=== PATIENT | male | born 1950 | race African-American/Black ===

== ENCOUNTER 2018-01-08 00:52 | Inpatient (IN) | payer OTHER, MEDICARE ==
[~2018-01-08] VITALS: Ht 193 cm; Wt 83.0 kg
[~2018-01-08 00:52] MED LIST: ASPI81CT95 PO; ATOR20TA40 PO; CARV3.122 PO; FURO40TA9 PO; LISI-424 PO; PRED20TA5 PO; QUET25TA46 PO; RANI150T15 PO; SPIR50TA PO
[2018-01-08 00:56] VITALS: BP 121/86
--- NOTE | 2018-01-08 01:03 | NUR ---
Dung lambert in [facility] - 01/08/18 at 0106 by JAYNA PT TAKEN TO BED 8
--- NOTE | 2018-01-08 01:05 | NUR ---
PT AMBULATED TO BED 8
--- NOTE | 2018-01-08 01:06 | NUR ---
Dr. Patel evaluating patient at bedside.
--- NOTE | 2018-01-08 01:09 | NUR ---
67 Y/O M W/C/O SOB/COUGH X 2 WKS ON AND OFF. MED HX COPD, AND HTN. PT ON MONITOR, ER MADE AWARE.
[2018-01-08] MEDS ORDERED: ASPIRIN 81 MG TAB.CHEW PO ONE (01:10)
[2018-01-08] MEDS ORDERED: FUROSEMIDE 40 MG/4 ML VIAL IVP ONE (01:10)
[2018-01-08 01:32] LABS: BASOPHILS % (AUTO) 0.5 % (0.0-2.0); EOSINOPHILS # (AUTO) 0.1 K/uL (0-0.4); EOSINOPHILS % (AUTO) 1.1 % (0.0-4.0); HEMATOCRIT 41.9 % (36-52); HEMOGLOBIN 13.6 g/dL (12.0-18.0); LYMPHOCYTES # (AUTO) 2.8 K/uL (2.0-11.5); LYMPHOCYTES % (AUTO) 31.6 % (20.5-51.1); MEAN CORPUSCULAR HEMOGLOBIN 31 pg (27-31); MEAN CORPUSCULAR HGB CONC 33 g/dL (33-37); MEAN CORPUSCULAR VOLUME 95.4 fL (80-94); MONOCYTES # (AUTO) 0.7 K/uL (0.8-1.0); MONOCYTES % (AUTO) 7.7 % (1.7-9.3); NEUTROPHILS # (AUTO) 5.3 K/uL (1.8-7.7); NEUTROPHILS % (AUTO) 59.1 % (42.2-75.2); PLATELET COUNT (AUTO) 234 K/uL (140-450); RED BLOOD CELL COUNT(AUTO) 4.39 MIL/uL (4.20-6.10); RED CELL DISTRIBUTION WIDTH 14.8 % (11.6-13.7)
[2018-01-08 01:43] LABS: ANION GAP 14.2 (8-16); CARBON DIOXIDE 23.6 mmol/L (21-32); CREATININE 1.2 mg/dL (0.7-1.3); POTASSIUM 3.8 mmol/L (3.5-5.1)
[2018-01-08 01:49] LABS: ALBUMIN 3.2 g/dL (3.4-5.0); TOTAL BILIRUBIN 0.6 mg/dL (0.0-1.0)
--- NOTE | 2018-01-08 02:03 | NUR ---
X-Ray at bedside.
[2018-01-08 02:23] LABS: PROTHROMBIN TIME 11.5 secs (10.8-13.4)
--- NOTE | 2018-01-08 02:30 | NUR ---
RESULTS FROM LAB DRAW AT 2221 WAS 51 PER PROTOCOL NO CHANGE IN GTT RATE. PT IN LOW BED SLEEPING NO C/O VOICED CALL MUSA IN REACH AND SIDE RAILS UP X2.
--- NOTE | 2018-01-08 02:46 | NUR ---
PT RESTING IN BED AWATING FOR ADMITING ORDERS, NO S/S OF DSITRESS NOTED AT THE MOMENT.
[2018-01-08] MEDS ORDERED: HEPARIN PER PHARMACY MC PRN (02:50)
[2018-01-08] MEDS ORDERED: HYDROcodone/APAP 7.5/325 MG 1 TAB PO PRN (02:50)
[2018-01-08] MEDS ORDERED: MORPHINE SULFATE 2 MG/ML SYR IVP PRN (02:50)
[2018-01-08] MEDS ORDERED: ACETAMINOPHEN 325 MG TAB PO PRN (02:50)
[2018-01-08] MEDS ORDERED: hePARIN / DEXT 5% PREMIX 250 ML IV SCH (02:50)
[2018-01-08] MEDS ORDERED: DOCUSATE SODIUM 100 MG GELCAP PO PRN (02:50)
[2018-01-08] MEDS ORDERED: ONDANSETRON 4 MG/2 ML VIAL IM/IVP PRN (02:50)
[2018-01-08 03:03] LABS: APPEARANCE,URINE CLEAR (CLEAR); BILIRUBIN,URINE NEGATIVE (NEGATIVE); BLOOD, URINE NEGATIVE (NEGATIVE); COLOR,URINE YELLOW (YELLOW); LEUKOCYTE ESTERASE ,URINE NEGATIVE (NEGATIVE); NITRITE, URINE NEGATIVE (NEGATIVE); UGLUCOSE NEGATIVE (NEGATIVE)
[2018-01-08 03:10] LABS: BARBITURATE, URINE NEG. ng/ml (NEG <=200); BENZODIAZEPINE, URINE NEG. ng/mL (NEG <=200); CANNABINOID, URINE NEG. ng/mL (NEG <=50); COCAINE, URINE NEG. ng/mL (NEG <=300); OPIATE, URINE NEG. ng/mL (NEG <=2000); PHENCYCLIDINE SCREEN,URINE NEG. ng/mL (NEG <=25)
[2018-01-08 03:18] LABS: CHOL/HDL RATIO 3.8 (1-4.5); FREE T4 (FREE THYROXINE) 0.93 ng/dL (0.76-1.46); PHOSPHORUS 3.6 mg/dL (2.5-4.9); THYROID STIMULATING HORMONE 3.83 uIU/mL (0.34-3.74)
--- NOTE | 2018-01-08 03:26 | NUR ---
Pt transferred to Tele via .
--- NOTE | 2018-01-08 03:27 | NUR ---
Patient will be admitted to care of DR GAMINO. Admited to TELEMETRY. Will go to room 121A. Belongings list completed. Report to LIBBY MARLOW.
--- NOTE | 2018-01-08 03:50 | NUR ---
PT ARRIVED VIA GURNEY FROM ED. WITH C/O OF CHEST PAIN, SOB AND DIARRHEA ON AND OFF X 3 WEEKS. PT HAS HISTORY OF HTN, COPD, AND SCROTAL HERNIA. PT IS AOX4 AND CAN AMBULATE SHORT DISTANCES WITH CANE. HE IS HOMELESS WITH HX OF SCHIZOPHRENIA. PT SKIN INTACT, HOWEVER HE HAS A HERNIATED SCROTUM. L HAND 22g IV SITE . LUNGS ARE DIMINISHED WITH ASCULTATION, THEY HAVE RHALES AT THE BASE. BS ACTIVE X 4Q. DR SPRAGUE WAS IN TO SEE PT AT THIS TIME.
[2018-01-08] MEDS: hePARIN / DEXT 5% PREMIX 250 ML IV SCH ×2 (05:15→16:15)
--- NOTE | 2018-01-08 05:15 | NUR ---
HEPARIN BOLUS AND DRIP STARTED DUE TO APTT AT 27.0. DRIP STARTED AT 0515. PT IN BED RESTING WITH NO S/S OF PAIN OR DISTRESS NOTED. PT DID URINATE X 3 DUE TO LASIK ADMINISTERED IN ER IN URINAL AND REQUESTED FLUIDS. BED IN LOW POSITION SIDE RAILS UP X2 AND CALL MUSA IN REACH.
--- NOTE | 2018-01-08 06:58 | NUR ---
PT IN BED ASLEEP AT THIS TIME NO S/S OF PAIN OR DISTRESS NOTED, IV SITE FLUSHED PT AND HEPARIN DRIP RUNNING ORDERED. NO ADVERSE EFFECTS NOTED. BED LOW POSITION AND CALL MUSA IN REACH.
--- NOTE | 2018-01-08 07:40 | NUR ---
TRANSFER OF CARE TO [facility] NURSE TERRY RN PT RESTING IN BED IN STABLE CONDITION. BED LOW CALL MUSA IN REACH.
--- NOTE | 2018-01-08 07:41 | NUR ---
RECEIVED REPORT FROM PROCESS TANK TENDER NURSE. PATIENT LYING DOWN IN BED SLEEPING, AROUSABLE BY VOICE. NO DISTRESS NOTED. DENIES ANY PAIN. RESPIRATIONS EVEN, UNLABORED, ON ROOM AIR. AAOX4, CALM, COOPERATIVE, SKIN COLOR APPROPRIATE TO ETHNICITY, WARM TO TOUCH. SKIN IS INTACT. IV SITE INTACT, PATENT, RUNNING HEPARIN DRIP PER PHARMACY PROTOCOL. LUNGS CTA ON ALL LOBES. ABDOMEN SOFT, NON-DISTENDED. REVIEWED PLAN OF CARE WITH PATIENT. PATIENT VERBALIZED UNDERSTANDING. SAFETY MEASURES IN PLACE, CALL LIGHT WITHIN REACH. WILL CONTINUE TO MONITOR.
[2018-01-08 08:00] VITALS: BP 110/78
[2018-01-08] MEDS: ASPIRIN 81 MG TAB.CHEW PO SCH (08:38)
[2018-01-08] MEDS: SPIRONOLACTONE 50 MG TAB PO SCH (08:38)
[2018-01-08] MEDS: CARVEDILOL 3.125 MG TAB PO SCH ×2 (08:38→21:45)
[2018-01-08] MEDS: FAMOTIDINE 20 MG TAB PO SCH ×2 (08:38→21:47)
[2018-01-08] MEDS: LISINOPRIL 5 MG TAB PO SCH (08:39)
[2018-01-08] MEDS: FUROSEMIDE 20 MG/2 ML VIAL IVP SCH ×2 (08:39→21:50)
--- NOTE | 2018-01-08 08:48 | NUR ---
PATIENT LYING IN BED SLEEPING, AROUSABLE BY VOICE. NO DISTRESS NOTED. DENIES ANY PAIN. SCHEDULED MEDICATIONS DUE GIVEN. SAFETY MEASURES IN PLACE, CALL LIGHT WITHIN REACH. WILL CONTINUE TO MONITOR.
[2018-01-08] MEDS ORDERED: NON-FORMULARY ITEM (Ranitidine HCl (Zantac) 1 TAB) PO SCH (09:00)
[2018-01-08] MEDS ORDERED: FUROSEMIDE 40 MG TAB PO SCH (09:00)
[2018-01-08] MEDS ORDERED: predniSONE 20 MG TAB PO SCH (09:00)
--- NOTE | 2018-01-08 09:14 | NUR ---
PATIENT HAS BEEN SCREENED AND CATEGORIZED HIGH NUTRITION RISK. PATIENT WILL BE SEEN WITHIN 1-2 DAYS OF ADMISSION. 01/08/18 01/09/[address]
--- NOTE | 2018-01-08 09:17 | NUR ---
FAXED INITIAL REVIEW TO [facility] [phone] PHONE [phone]
--- NOTE | 2018-01-08 11:12 | NUR ---
PATIENT LYING DOWN IN BED SLEEPING, AROUSABLE BY VOICE. NO DISTRESS NOTED. DENIES ANY PAIN. HEPARIN DRIP CONTINUING TO RUN PER MD ORDERS. SAFETY MEASURES IN PLACE, CALL LIGHT WITHIN REACH. WILL CONTINUE TO MONITOR.
[2018-01-08 12:00] VITALS: BP 99/74
--- NOTE | 2018-01-08 13:00 | NUR ---
PATIENT LYING IN BED WATCHING TV. NO DISTRESS NOTED. DENIES ANY PAIN. SAFETY MEASURES IN PLACE, CALL LIGHT WITHIN REACH. WILL CONTINUE TO MONITOR.
--- NOTE | 2018-01-08 13:30 | NUR ---
[facility] ASSISTANT WOMEN'S SOCCER COACH CALLED AND SAID THAT WE CAN CALL [employer] AT [phone] TO ARRANGE FOR TRANSPORTATION WHEN PATIENT IS READY TO BE DISCHARGED. INSURANCE WILL COVER THE TRANSPORTATION.
--- NOTE | 2018-01-08 14:53 | NUR ---
01/08/18 RD INITIAL ASSESSMENT COMPLETED PLEASE REFER TO NUTRITION ASSESSMENT UNDER CARE ACTIVITY FOR ESTIMATED NUTRITIONAL NEEDS. 1. CONTINUE CARDIAC DIET 2. INCREASE PORTION SIZES TO MEET CALORIE AND PROTEIN NEEDS. 3. PROVIDE NUTRITION EDUCATION ABOUT CHF AND HTN 4. RD TO FOLLOW-UP 3-5 DAYS, MODERATE RISK DE GOLD, ROMI
[2018-01-08 16:00] VITALS: BP 112/80
--- NOTE | 2018-01-08 16:23 | NUR ---
PATIENT LYING DOWN IN BED SLEEPING, AROUSABLE BY VOICE. NO DISTRESS NOTED. DENIES ANY PAIN. PTT LAB CAME BACK 43.0, ADJUSTED HEPARIN DRIP PER PROTOCOL. SAFETY MEASURES IN PLACE, CALL LIGHT WITHIN REACH. WILL CONTINUE TO MONITOR.
--- NOTE | 2018-01-08 16:24 | NUR ---
HEP DRIP CHANGED AT THIS TIME PER PROTOCOL DUE TO PENDING PTT RESULTS FROM LAB DRAW AT 1350. PTT RESULTS JUST CAME IN AT THIS TIME.
--- NOTE | 2018-01-08 18:00 | NUR ---
PATIENT SITTING IN BED WITH DINNER TRAY IN FRONT. NO DISTRESS NOTED. CONDITION UNCHANGED. SAFETY MEASURES IN PLACE, CALL LIGHT WITHIN REACH. WILL CONTINUE TO MONITOR.
--- NOTE | 2018-01-08 19:35 | NUR ---
GAVE REPORT TO COMPENSATION COORDINATOR NURSE FOR CONTINUITY OF CARE. PATIENT IN STABLE CONDITION.
--- NOTE | 2018-01-08 19:35 | NUR ---
RECEIVED REPORT FROM TERRY SOUZA ON DAY SHIFT. PT SITTING UP IN BED WITH BED RAILS LOW AND SIDE RAILS UP X2. HEPARIN DRIP RUNNING AT 11.6MLS/HR. IV SITE PATENT AT THIS TIME. PT ALERT AND ORIENTED. WITH NO C/O OF PAIN AT THIS TIME FAMILY AT BEDSIDE.
[2018-01-08] MEDS ORDERED: ATORVASTATIN 20 MG TAB PO SCH (21:00)
[2018-01-08] MEDS ORDERED: QUEtiapine FUMARATE 25 MG TAB PO SCH (21:00)
--- NOTE | 2018-01-08 21:00 | NUR ---
IVP LASIK COULD NOT BE ADMINISTERED BECAUSE OF HEPARIN DRIP . PT ONLY HAS ONE IV SITE AND ATTEMPTS X 5 TO GET IV ACCESS WAS UNSUCCESSFUL AT THIS TIME. ATTENDING DR DIAZ WAS NOTIFIED THAT PT ALSO REFUSES ANOTHER IV ATTEMPT AT THIS TIME. ATTENDING WAS AGREEABLE TO CHANGE ORDER TO P.O. AT THIS TIME.
[2018-01-08 21:30] VITALS: BP 114/57
--- NOTE | 2018-01-08 22:20 | NUR ---
LAB AT BED SIDE TO DRAW PT/APTT LABS FOR HEPARIN DRIP.
[2018-01-08 23:45] VITALS: BP 95/57
--- NOTE | 2018-01-08 23:45 | NUR ---
ASSESSED PATIENT AND VENT CHECK. PATIENT APPEARS COMFORTABLE WITH NO RESPIRATORY DISTRESS SEEN OR NOTED. B/S: DIMINISHED BILATERALLY PRE AND POST ET SUCTION. WILL CONTINUE TO MONITOR. Addendum: 01/09/18 at 0305 by Marla Mcintyre RT WRONG PATIENT
[2018-01-09] VITALS: BP 116/80
--- NOTE | 2018-01-09 00:03 | NUR ---
APTT IS STILL PENDING FROM 2219 LAB DRAW.
--- NOTE | 2018-01-09 00:05 | NUR ---
NEW ORDER NOTED FOR PO LASIK 40MG DUE TO UNOBTAINABLE IV SITE.
[2018-01-09 01:35] VITALS: BP 122/84
[2018-01-09 04:00] VITALS: BP 113/79
[2018-01-09 04:15] LABS: BASOPHILS % (AUTO) 0.5 % (0.0-2.0); EOSINOPHILS # (AUTO) 0.1 K/uL (0-0.4); EOSINOPHILS % (AUTO) 1.5 % (0.0-4.0); HEMATOCRIT 39.4 % (36-52); HEMOGLOBIN 12.8 g/dL (12.0-18.0); LYMPHOCYTES # (AUTO) 2.9 K/uL (2.0-11.5); LYMPHOCYTES % (AUTO) 33.7 % (20.5-51.1); MEAN CORPUSCULAR HEMOGLOBIN 31 pg (27-31); MEAN CORPUSCULAR HGB CONC 32 g/dL (33-37); MEAN CORPUSCULAR VOLUME 95.3 fL (80-94); MONOCYTES # (AUTO) 0.8 K/uL (0.8-1.0); MONOCYTES % (AUTO) 9.9 % (1.7-9.3); NEUTROPHILS # (AUTO) 4.7 K/uL (1.8-7.7); NEUTROPHILS % (AUTO) 54.4 % (42.2-75.2); PLATELET COUNT (AUTO) 221 K/uL (140-450); RED BLOOD CELL COUNT(AUTO) 4.14 MIL/uL (4.20-6.10); RED CELL DISTRIBUTION WIDTH 14.6 % (11.6-13.7); WHITE BLOOD COUNT (AUTO) 8.6 K/uL (4.8-10.8)
[2018-01-09 04:41] LABS: MAGNESIUM 1.8 mg/dL (1.8-2.4); PHOSPHORUS 3.7 mg/dL (2.5-4.9)
[2018-01-09 04:43] LABS: CARBON DIOXIDE 25.5 mmol/L (21-32); CREATININE 1.1 mg/dL (0.7-1.3); POTASSIUM 3.5 mmol/L (3.5-5.1)
--- NOTE | 2018-01-09 06:15 | NUR ---
PT PULLED OUT IV SITE BY ACCIDENT. NEW IV SITE DONE ON LEFT F/A 22G.
[2018-01-09 06:21] LABS: T4 (THYROXINE) 6.9 ug/dL (4.5-12.0)
--- NOTE | 2018-01-09 07:00 | NUR ---
RESULTS FROM PT T LAB DRAW YIELDED 34.0 RESULT. PROTOCOL FOLLOWED AND PT GIVEN 4800 BOLUS OF HEPARIN AND GTT RATE ADJUSTED TO 14.6 ACCORDING TO PROTOCOL. NEW IV SITE 22G ON LEFT F/A RUNNING PATENT
--- NOTE | 2018-01-09 07:30 | NUR ---
RECEIVED REPORT FROM ENGLISH LECTURER NURSE. PATIENT AWAKE, ALERT, OX4. NO S/S OF DISTRESS NOTED. DENIES ANY PAIN. RESPIRATIONS EVEN, UNLABORED, ON ROOM AIR. SKIN IS INTACT. IV SITE INTACT, PATENT, RUNNING HEPARIN DRIP PER PHARMACY PROTOCOL. LUNGS CTA ON ALL LOBES. DISCUSSED PLAN OF CARE WITH PATIENT. PATIENT VERBALIZED UNDERSTANDING. SAFETY MEASURES IN PLACE, CALL LIGHT WITHIN REACH. WILL CONTINUE TO MONITOR.
--- NOTE | 2018-01-09 07:34 | NUR ---
TRANSFER OF CARE TO DIRK RN DAY SHIFT NURSE. PT IN STABLE CONDITION.LAS TRESULTS OF PTT DRAW WAS 43.0 PROTOCVAL FOLLOWED AND NEXT LAB DRAWS AT 1300 SCHEDULED
[2018-01-09 08:00] VITALS: BP 129/89
[2018-01-09] MEDS ORDERED: FUROSEMIDE 40 MG TAB PO SCH (09:00)
[2018-01-09] MEDS: FAMOTIDINE 20 MG TAB PO SCH (09:37)
[2018-01-09] MEDS: ASPIRIN 81 MG TAB.CHEW PO SCH (09:38)
[2018-01-09] MEDS: LISINOPRIL 5 MG TAB PO SCH (09:38)
[2018-01-09] MEDS: CARVEDILOL 3.125 MG TAB PO SCH (09:38)
[2018-01-09] MEDS: SPIRONOLACTONE 50 MG TAB PO SCH (09:41)
--- NOTE | 2018-01-09 11:45 | NUR ---
OFFERED TO WALK WITH PT. PT STATED AFTER LUNCH. PT DENIES ANY PAIN. NO S/S OF ACUTE DISTRESS.
--- NOTE | 2018-01-09 13:05 | NUR ---
WALKED WITH PT ONE LAP AROUND THE UNIT. PT DENIES CHEST PAIN. O2 SAT 96%-99%
--- NOTE | 2018-01-09 13:37 | NUR ---
Clinical notes faxed to [facility] at [phone]
--- NOTE | 2018-01-09 13:40 | NUR ---
clinical review faxed to [facility]. Addendum: 01/09/18 at 1342 by Marysol Ivey CM DISREGARD ABOVE NOTE PLEASE
[2018-01-09] MEDS ORDERED: FAMO20TA13 PO (14:10)
[2018-01-09] MEDS ORDERED: FURO40TA9 PO (14:10)
[2018-01-09] MEDS ORDERED: FLUT1DSK2 IH (14:14)
[2018-01-09] MEDS ORDERED: ALBU0.0912 IH (14:14)
--- NOTE | 2018-01-09 15:30 | NUR ---
PT DISCHARGED PER MD ORDER. DISCHARGE INSTRUCTION AND MED TEACHING GIVEN. PT VERBALIZED UNDERSTANDING. MADE PT AWARE OF SCHEDULED MD APPOINTMENT. ASKED TO REMOVED PT'S IV, PT STATED SOMEBODY REMOVED ALREADY. NO BLEEDING NOTED AT IV SITE. ENCOURAGE TO GO TO PHARMACY RIGHT AFTER DISCHARGE AND START TAKING MEDS FOR TONIGHT. PT SIGNED ALL PAPERWORK AND LEFT WITH ALL HIS BELONGING. [facility] ESCORT PT TO LOBBY WITH WHEELCHAIR.
[2018-01-10 06:30] LABS: T4 (THYROXINE) 5.4 ug/dL (4.5-12.0)
== END 2018-01-09 15:30 | disposition home or self-care (01) | DRG 194 ==
LOC: MED 00:52 → MTU 02:52
PROVIDERS: ADMIT Family Medicine; ATTEND Family Medicine
PROC: 5A1935Z Respiratory Ventilation, Less than 24 Consecutive Hours (ICD-10-PCS; principal; 2018-01-08)
DX: I11.0 Hypertensive heart disease with heart failure (principal); N17.9 Acute kidney failure, unspecified; E44.0 Moderate protein-calorie malnutrition; J44.9 Chronic obstructive pulmonary disease, unspecified; K21.9 Gastro-esophageal reflux disease without esophagitis; I50.43 Acute on chronic combined systolic (congestive) and diastolic (congestive) heart failure; F14.10 Cocaine abuse, uncomplicated; F15.10 Other stimulant abuse, uncomplicated; Z96.649 Presence of unspecified artificial hip joint; F17.210 Nicotine dependence, cigarettes, uncomplicated; K40.90 Unilateral inguinal hernia, without obstruction or gangrene, not specified as recurrent; I25.10 Atherosclerotic heart disease of native coronary artery without angina pectoris; I25.5 Ischemic cardiomyopathy; I34.0 Nonrheumatic mitral (valve) insufficiency; E02 Subclinical iodine-deficiency hypothyroidism; Z88.6 Allergy status to analgesic agent; Z79.82 Long term (current) use of aspirin; Z79.899 Other long term (current) drug therapy; Z68.22 Body mass index [BMI] 22.0-22.9, adult; Z82.3 Family history of stroke; Z91.19 Patient's noncompliance with other medical treatment and regimen; E83.51 Hypocalcemia
CPT/HCPCS: 36415; 71045; 80048; 80053; 80305; 81003; 82150; 83036; 83690; 83735; 83880; 84100; 84436; 84439; 84443; 84479; 84484; 85025; 85610; 85730; 87081; 93005; 96374; 99285; J1644; J1940; Q0092

== ENCOUNTER 2018-03-30 06:53 | Emergency (ER) | payer MEDICARE, OTHER ==
[~2018-03-30] VITALS: Ht 185.4 cm; Wt 79.4 kg
[~2018-03-30 06:53] MED LIST changes: +ALBU0.0912 IH; +FAMO20TA13 PO; +FLUT1DSK2 IH; -PRED20TA5 PO; +RANI-485 PO; -RANI150T15 PO
[2018-03-30 06:55] VITALS: BP 137/62
--- NOTE | 2018-03-30 07:18 | NUR ---
PT PRESENTS TO ED WITH COMPLAINTS OF SHORTNESS OF BREATH. PATIENT O2 SAT AT 100% ON ROOM AIR. PT REPORTS HE TAKES LASIX AND POTASSIUM BUT MEDICATION RAN OUT 6 DAYS AGO. PT ALSO REPORTS ABDOMINAL PAIN AND HEADACHE 04/04. OTHERWISE VSS. SKIN IS PINK/WARM/DRY, NO EDEMA NOTED; AAOX4; LUNGS CLEAR THROUGHOUT; HR EVEN AND REGULAR; PATIENT POSITIONED FOR COMFORT; HOB ELEVATED; BEDRAILS UP X2; BED DOWN. ER MD MADE AWARE OF PT STATUS.
[2018-03-30] MEDS ORDERED: FUROSEMIDE 40 MG/4 ML VIAL IVP ONE (08:50)
--- NOTE | 2018-03-30 09:50 | NUR ---
Patient discharged with v/s stable. Written and verbal after care instructions given and explained. Patient alert, oriented and verbalized understanding of instructions. Ambulatory with steady gait. All questions addressed prior to discharge. ID band removed. Patient advised to follow up with PMD. Rx of lasix given. Patient educated on indication of medication including possible reaction and side effects. Opportunity to ask questions provided and answered.
[2018-03-30 09:53] VITALS: BP 122/84
== END 2018-03-30 09:50 | disposition home or self-care (01) ==
LOC: MED 06:53
DX: I11.0 Hypertensive heart disease with heart failure (principal); J44.9 Chronic obstructive pulmonary disease, unspecified; I10 Essential (primary) hypertension; F17.210 Nicotine dependence, cigarettes, uncomplicated; Z79.899 Other long term (current) drug therapy; Z79.82 Long term (current) use of aspirin; Z88.6 Allergy status to analgesic agent
CPT/HCPCS: 93005; 96374; 99284; J1940

== ENCOUNTER 2018-04-23 05:50 | Inpatient (IN) | payer OTHER, MEDICARE ==
[~2018-04-23] VITALS: Ht 185.4 cm; Wt 80.7 kg
[2018-04-23 05:50] VITALS: BP 129/84
--- NOTE | 2018-04-23 05:52 | NUR ---
Patient ambulated to bed 8. RN evaluating patient at bedside.
--- NOTE | 2018-04-23 06:01 | NUR ---
Dr. Martinez evaluating patient at bedside.
[2018-04-23] MEDS ORDERED: fentaNYL 0.05 MG/ML VIAL IVP ONE ×2 (06:10→09:35)
[2018-04-23] MEDS ORDERED: LORazepam 2 MG/ML VIAL IVP ONE (06:10)
[2018-04-23] MEDS ORDERED: NACL 0.9% 1,000 ML IV ONE (06:10)
--- NOTE | 2018-04-23 06:11 | NUR ---
PT BIB SELF C/O URINARY RETENTION, UNABLE TO URINATE SINCE YESTERDAY AM. PT STATES HE IS TAKING LASIX. ABD IS ROUND, FIRM, TENDER TO LOWER QUADRANTS, ACTIVE BS X4. PT HAS ENLARGED SCROTUM, STATES HE ALSO HAS HERNIA OF UNKOWN ORIGIN. PT IS LAYING IN BED, GRABBING AND RUBBING GENITAL AREA, FACIAL GRIAMCING, ER MD AWARE OF PT STATUS. PMH CHF, HTN, HERNIA
--- NOTE | 2018-04-23 06:40 | NUR ---
PT IN BED SLEEPING, PT STATES HE HAS PAIN RELIEF AT THIS TIME.
--- NOTE | 2018-04-23 06:43 | NUR ---
US tech at bedside for exam.
--- NOTE | 2018-04-23 06:52 | NUR ---
Dr. Martinez re-evaluating patient at bedside.
--- NOTE | 2018-04-23 07:06 | NUR ---
REPORT GIVEN TO LIBBY ODELL, TRANSFER OF CARE AT THIS TIME.
--- NOTE | 2018-04-23 07:09 | NUR ---
RECEIVED REPORT FROM GARRETT SOUZA. Addendum: 04/23/18 at 0720 by [facility] Patient appears to be resting comfortably in bed. HR TACHY,BP NORMAL, PULSE OX 95% RA, Respirations even and unlabored. LOERA'S CATH URINE 100 CC ; YELLOW. WILL CONTINUE TO MONITOR.
--- NOTE | 2018-04-23 07:30 | NUR ---
US AT BEDSIDE.
--- NOTE | 2018-04-23 08:20 | NUR ---
lab at bedside.
[2018-04-23 08:31] LABS: BASOPHILS % (AUTO) 0.1 % (0.0-2.0); EOSINOPHILS % (AUTO) 0.2 % (0.0-4.0); HEMATOCRIT 38.5 % (36-52); HEMOGLOBIN 12.7 g/dL (12.0-18.0); LYMPHOCYTES # (AUTO) 1.1 K/uL (2.0-11.5); LYMPHOCYTES % (AUTO) 9.5 % (20.5-51.1); MEAN CORPUSCULAR HEMOGLOBIN 32 pg (27-31); MEAN CORPUSCULAR HGB CONC 33 g/dL (33-37); MEAN CORPUSCULAR VOLUME 96.1 fL (80-94); MONOCYTES # (AUTO) 1.1 K/uL (0.8-1.0); MONOCYTES % (AUTO) 9.5 % (1.7-9.3); NEUTROPHILS # (AUTO) 9.5 K/uL (1.8-7.7); NEUTROPHILS % (AUTO) 80.7 % (42.2-75.2); PLATELET COUNT (AUTO) 253 K/uL (140-450); RED BLOOD CELL COUNT(AUTO) 4.01 MIL/uL (4.20-6.10); RED CELL DISTRIBUTION WIDTH 15.3 % (11.6-13.7); WHITE BLOOD COUNT (AUTO) 11.8 K/uL (4.8-10.8)
--- NOTE | 2018-04-23 08:36 | NUR ---
us at bedside.
[2018-04-23 08:37] LABS: APPEARANCE,URINE CLOUDY (CLEAR); BLOOD, URINE 3+ (NEGATIVE); COLOR,URINE YELLOW (YELLOW); LEUKOCYTE ESTERASE ,URINE 3+ (NEGATIVE); NITRITE, URINE NEGATIVE (NEGATIVE); UGLUCOSE NEGATIVE (NEGATIVE)
[2018-04-23 08:43] LABS: BILIRUBIN,URINE NEGATIVE (NEGATIVE)
[2018-04-23 08:44] LABS: RBC,URINE >100 /HPF (0-5); WBC,URINE TOO MANY TO COUNT /HPF (0-5)
[2018-04-23 08:52] LABS: CARBON DIOXIDE 21.5 mmol/L (21-32); CREATININE 1.2 mg/dL (0.7-1.3); POTASSIUM 3.5 mmol/L (3.5-5.1)
[2018-04-23 08:58] LABS: ALBUMIN 3.3 g/dL (3.4-5.0); TOTAL BILIRUBIN 1.8 mg/dL (0.0-1.0)
[2018-04-23] MEDS ORDERED: cefTRIAXone 1,000 MG VIAL ONE (09:10)
[2018-04-23] MEDS ORDERED: ZOLPIDEM 5 MG TAB PO PRN (10:20)
[2018-04-23] MEDS ORDERED: ONDANSETRON 4 MG/2 ML VIAL IM/IVP PRN (10:20)
[2018-04-23] MEDS ORDERED: ACETAMINOPHEN 325 MG TAB PO PRN (10:20)
[2018-04-23] MEDS ORDERED: LORazepam 2 MG/ML VIAL IM/IVP PRN (10:20)
[2018-04-23] MEDS ORDERED: DOCUSATE SODIUM 100 MG GELCAP PO PRN (10:20)
--- NOTE | 2018-04-23 10:31 | NUR ---
X RAY AT BEDSIDE.
[2018-04-23 11:05] VITALS: BP 110/78
[2018-04-23 11:06] LABS: CHOL/HDL RATIO 4.1 (1-4.5); FREE T4 (FREE THYROXINE) 1.1 ng/dL (0.76-1.46); MAGNESIUM 2.2 mg/dL (1.8-2.4); PHOSPHORUS 3.2 mg/dL (2.5-4.9); THYROID STIMULATING HORMONE 3.39 uIU/mL (0.34-3.74)
--- NOTE | 2018-04-23 11:07 | NUR ---
Patient will be admitted to care of DR AVILA. Admited to TELE. Will go to room 111 B. Belongings list completed. Report to DIRK SOUZA.
--- NOTE | 2018-04-23 11:20 | NUR ---
PT ARRIVED ON UNIT VIA GURNEY, PT AMBULATED TO BED, RECEIVED BEDSIDE REPORT FROM ER NURSE AT BEDSIDE, NO S/S OF DISTRESS NOTED ON ROOM AIR, IV TO L+ AC 20G PATENT, INTACT, VITALS TAKEN, MRSA SWAB DONE. ORIENTED PT TO ROOM, BED, CALL LIGHT, PHONE, PT STATED UNDERSTANDING, INITIAL ASSESSMENT DONE, ALL SAFETY PRECAUTION MET, WILL CONTINUE TO MONITOR.
[2018-04-23 11:26] LABS: BARBITURATE, URINE NEG. ng/ml (NEG <=200); BENZODIAZEPINE, URINE NEG. ng/mL (NEG <=200); CANNABINOID, URINE NEG. ng/mL (NEG <=50); COCAINE, URINE NEG. ng/mL (NEG <=300); OPIATE, URINE NEG. ng/mL (NEG <=2000); PHENCYCLIDINE SCREEN,URINE NEG. ng/mL (NEG <=25)
[2018-04-23] MEDS: NACL 0.9% 1,000 ML IV SCH ×2 (11:30→17:51)
[2018-04-23 12:00] VITALS: BP 113/76
--- NOTE | 2018-04-23 13:10 | NUR ---
DR PETERSON IS HERE TO SEE PT. WILL SCHEDULE PT FOR INGUINAL HERNIA REPAIR.
[2018-04-23] MEDS: PHENAZOPYRIDINE 100 MG TAB PO SCH ×2 (13:11→17:11)
--- NOTE | 2018-04-23 13:20 | NUR ---
CONSENT FOR HERNIA REPAIR SX SIGNED. PT HAS NO QUESTIONS AT THIS TIME.
--- NOTE | 2018-04-23 14:13 | NUR ---
IV INSERTED RIGHT FA. 24G. PT TOLERATED WELL.
--- NOTE | 2018-04-23 15:02 | NUR ---
PLACED SCD ON BLE.
[2018-04-23 16:00] VITALS: BP 102/69
--- NOTE | 2018-04-23 17:10 | NUR ---
LOERA DRAINING ORANGE CLOUDY URINE, 650ML OUTPUT
--- NOTE | 2018-04-23 19:35 | NUR ---
RECEIVED BEDSIDE REPORT FROM LIBBY CAVAZOS, PT IN BED. ROOM AIR, AWAKE AND ABLE TO MAKE NEEDS KNOWN, C/O PAIN 10/10 IN SCROTAL AREA, WILL MEDICATE ACCORDING TO MD ORDER, LOERA CATH IN PLACE, DRAINING RED URINE, V/S TAKEN ALL WITHIN PTS BASELINE, IV IN RIGHT AC, 20 G. CALL LIGHT WITHIN REACH WILL CONTINUE TO MONITOR.
--- NOTE | 2018-04-23 19:35 | NUR ---
ENDORSED PT TO AIRPORT OPERATIONS COORDINATOR NURSE FOR CONTINUITY OF CARE. PT IN STABLE CONDITION
[2018-04-23 20:00] VITALS: BP 115/85
[2018-04-23] MEDS: MORPHINE SULFATE 2 MG/ML SYR IVP PRN (20:16)
--- NOTE | 2018-04-23 20:16 | NUR ---
MEDICATED WITH MORPHINE FOR PAIN OF 10/10 IN SCROTAL AREA. WILL CONTINUE TO MONITOR.
[2018-04-23] MEDS: CARVEDILOL 3.125 MG TAB PO SCH (20:19)
[2018-04-23] MEDS: ATORVASTATIN 20 MG TAB PO SCH (20:19)
[2018-04-23] MEDS: QUEtiapine FUMARATE 25 MG TAB PO SCH (20:19)
[2018-04-23] MEDS: FUROSEMIDE 40 MG TAB PO SCH (20:20)
[2018-04-23] MEDS ORDERED: NON-FORMULARY ITEM (Quetiapine Fumarate 50 MG) PO SCH (21:00)
[2018-04-23] MEDS ORDERED: NON-FORMULARY ITEM (Atorvastatin Calcium 20 MG) PO SCH (21:00)
--- NOTE | 2018-04-23 23:00 | NUR ---
PT SLEEPING IN BED NO SIGNS OF DISTRESS, WILL CONTINUE WILL MONITOR. CALL LIGHT WITHIN REACH.
[2018-04-24] VITALS: BP 108/80
--- NOTE | 2018-04-24 01:55 | NUR ---
PT SLEEPING IN BED, IV DRESSING INTACT. NO SIGNS OF DISTRESS, WILL CONTINUE WILL MONITOR. CALL LIGHT WITHIN REACH.
[2018-04-24 04:00] VITALS: BP 113/90
--- NOTE | 2018-04-24 04:30 | NUR ---
PT SLEEPING NO SIGNS OF DISTRESS. WILL CONTINUE TO MONITOR.
--- NOTE | 2018-04-24 06:00 | NUR ---
D/C IV IN LEFT AC, 22 G, CATH IN TACT D/T CATH COMING OUT.
--- NOTE | 2018-04-24 07:00 | NUR ---
ENDORSED PT TO DAY SHIFT NURSE, PT SLEEPING.
[2018-04-24 08:00] VITALS: BP 99/50
[2018-04-24 08:04] LABS: ANION GAP 10.2 (8-16); CARBON DIOXIDE 25.7 mmol/L (21-32); CREATININE 0.9 mg/dL (0.7-1.3); POTASSIUM 3.9 mmol/L (3.5-5.1)
[2018-04-24 08:17] LABS: MAGNESIUM 2.1 mg/dL (1.8-2.4); PHOSPHORUS 2.6 mg/dL (2.5-4.9)
--- NOTE | 2018-04-24 08:19 | NUR ---
CM NOTE INITIAL REVIEW FAXED TO [facility] [phone] # [phone] RAMANA EXT [id number]
--- NOTE | 2018-04-24 08:44 | NUR ---
PATIENT HAS BEEN SCREENED AND CATEGORIZED MODERATE NUTRITION RISK. PATIENT WILL BE SEEN WITHIN 3-5 DAYS OF ADMISSION. 04/25/18 04/27/[address]
[2018-04-24] MEDS: LISINOPRIL 5 MG TAB PO SCH (09:00)
[2018-04-24 09:41] LABS: BASOPHILS % (AUTO) 0.2 % (0.0-2.0); EOSINOPHILS # (AUTO) 0.1 K/uL (0-0.4); EOSINOPHILS % (AUTO) 0.8 % (0.0-4.0); HEMATOCRIT 37.9 % (36-52); HEMOGLOBIN 12.4 g/dL (12.0-18.0); LYMPHOCYTES # (AUTO) 1.4 K/uL (2.0-11.5); LYMPHOCYTES % (AUTO) 14.3 % (20.5-51.1); MEAN CORPUSCULAR HEMOGLOBIN 31 pg (27-31); MEAN CORPUSCULAR HGB CONC 33 g/dL (33-37); MEAN CORPUSCULAR VOLUME 95.7 fL (80-94); MONOCYTES # (AUTO) 1.1 K/uL (0.8-1.0); MONOCYTES % (AUTO) 11.4 % (1.7-9.3); NEUTROPHILS # (AUTO) 7.1 K/uL (1.8-7.7); NEUTROPHILS % (AUTO) 73.3 % (42.2-75.2); PLATELET COUNT (AUTO) 261 K/uL (140-450); RED BLOOD CELL COUNT(AUTO) 3.96 MIL/uL (4.20-6.10); RED CELL DISTRIBUTION WIDTH 15.4 % (11.6-13.7); WHITE BLOOD COUNT (AUTO) 9.7 K/uL (4.8-10.8)
[2018-04-24] MEDS: CARVEDILOL 3.125 MG TAB PO SCH ×2 (10:19→21:19)
[2018-04-24] MEDS: PHENAZOPYRIDINE 100 MG TAB PO SCH ×3 (10:20→18:02)
[2018-04-24] MEDS: SPIRONOLACTONE 25 MG TAB PO SCH (10:21)
[2018-04-24] MEDS: FUROSEMIDE 40 MG TAB PO SCH ×2 (10:21→21:21)
[2018-04-24] MEDS: DEXT 5% / NACL 0.45% 1,000 ML IV SCH ×2 (10:22→18:35)
[2018-04-24 12:00] VITALS: BP 93/63
[2018-04-24] MEDS: NACL 0.9% 1,000 ML IV SCH (12:07)
--- NOTE | 2018-04-24 12:12 | NUR ---
PT LYING TOWARDS BEDALARM SIDE OF THE BED. WANTED TO BE ON THAT SIDE , STATES THAT HELPS HIM WITH PAIN IN HIS SCROTUM. WANTS TO KEEP THE LOERA BAG ON FLOOR, STATES THAT TAKES OFF PRESSURE FORM HIS SCORTAL REGIOPN. PLACED CALL LIGHT WITHIN PT REACH. INSTRUCTED TO USE CALL LIGHT FOR ANY HELP. INSTRUCTED NOT TO GET UP WITHOUT CALLING NURSE. VERBALIZED UNDERSTANDING. WILL CONTINUE TO MONITOR PT.
[2018-04-24] MEDS: MORPHINE SULFATE 2 MG/ML SYR IVP PRN (12:33)
--- NOTE | 2018-04-24 12:33 | NUR ---
PT VERY AGITATED DUE TO PAIN IN HIS SCROTUM. DR LEBLANC NOTIFIED. TALKING TO PT. DR ORDERED TO TAKE THE FOLLEY OUT. LOERA DISCONTINUED IN PT. PT SITTING ON HIS BED. ADMINISTERED MORPHINE TO PT. WILL CONTINUE TO MONITOR PT.
[2018-04-24] MEDS ORDERED: BUPIVACAINE-MPF/EPI 0.5% 30 ML VIAL INJ ONE (13:34)
--- NOTE | 2018-04-24 13:53 | NUR ---
ADMINISTERED MEDS TO PT ORDERED. PT SLEEPING IN HIS BED. STATES HIS PAIN HAS BEEN REDUCED, FEELS COMFORTABLE. NO SIGN OF AGITATION. GOT CALL FROM OR. STATES WILL ARCHITECTURAL DESIGNER PT IN WHILE. WILL CONTINUE TO MONITOR PT.
--- NOTE | 2018-04-24 14:10 | NUR ---
PT WENT TO OR FOR PROCEDURE.
[2018-04-24] MEDS ORDERED: PROPOFOL 200 MG/20 ML VIAL IV ONE (14:12)
[2018-04-24] MEDS ORDERED: MORPHINE SULFATE 4 MG/ML SYR IVP PRN (14:25)
[2018-04-24] MEDS ORDERED: ONDANSETRON 4 MG TAB PO PRN (14:25)
[2018-04-24] MEDS ORDERED: fentaNYL 0.05 MG/ML VIAL ONE (14:27)
[2018-04-24] MEDS ORDERED: MIDAZOLAM 2 MG/2 ML VIAL ONE (14:27)
[2018-04-24] MEDS ORDERED: BUPIVACAINE/DEXT 0.75% SPINAL 2 ML AMP INJ ONE (14:41)
[2018-04-24] MEDS ORDERED: HYDROmorphone 1 MG/ML AMP IVP PRN (14:50)
[2018-04-24] MEDS ORDERED: ONDANSETRON 4 MG/2 ML VIAL IVP PRN (14:50)
[2018-04-24 16:30] VITALS: BP 98/69
--- NOTE | 2018-04-24 16:30 | NUR ---
PT RETURNED BACK FROM SX. EBL 10 ML. URINE 200 ML, FLUID ADMINISTERED IN OT 800 ML. PER OR NURSE, PT TO HAVE HEAD LIE DOWN ON FLAT POSITION TO AVOID THE SPINAL CHILDERS, CAN MOVE HEAD SIDE TO SIDE. VS NOTED T 96.9, HR 80, RR 16, BP 98/69. WILL ASSESS PT FOR 1 HR IN 15 MIN INTERVAL . DENIES ANY PAIN AT THIS TIME.NO SIGN OF DISTRESS ON PT. WANTS TO EAT SOMETHING. INFORMED THAT WILL CHECK ORDER AND WILL BRING SOMETHING TO EAT AND DRINK. VERBALIZED UNDERSTANDING. PT HAS ORDER FOR REGULAR DIET. OFFERED CRACKERS, AND JUICE, INFORMED THAT FOOD TRAY WILL BE PROVIDED AROUND 1730. WILL LOOK FOR SANDWICH. VERBALIZED UNDERSTANDING OF TEACHING. PLACED BED AT LOWER POSITION, CALL LIGHT WITHIN PT REACH. WILL CONTINUE TO MONITOR PT.
--- NOTE | 2018-04-24 18:00 | NUR ---
CHECKED ON PT. PASSED FOOD TRAY FOR PT. ADMINISTERED MEDS SCHEDULED PT TOLERATED WELL. O2 SAT 98% ON RA. DENIES ANY PAIN. WILL CONTINUE TO MONITOR PT.
--- NOTE | 2018-04-24 19:20 | NUR ---
ENDORSED PT TO PM NURSE AT BEDSIDE. PT EATING AT THE TIME OF SHIFT CHANGE, NO SIGN OF DISTRESS. PT IN STABLE CONDITION.
[2018-04-24 21:15] VITALS: BP 117/65
[2018-04-24] MEDS: QUEtiapine FUMARATE 25 MG TAB PO SCH (21:19)
[2018-04-24] MEDS: ATORVASTATIN 20 MG TAB PO SCH (21:19)
[2018-04-25] VITALS: BP 110/90
--- NOTE | 2018-04-25 03:30 | NUR ---
CHECKED ON PT. SLEEPING. NO COMPLAINTS AT THIS TIME. NO RESTLESSNESS NOTED.
[2018-04-25 04:00] VITALS: BP 112/92
[2018-04-25] MEDS: DEXT 5% / NACL 0.45% 1,000 ML IV SCH ×3 (04:01→23:57)
[2018-04-25] MEDS: NACL 0.9% 1,000 ML IV SCH ×2 (05:14→21:27)
--- NOTE | 2018-04-25 07:15 | NUR ---
ENDORSED TO THE NEXT RN FOR CONTINUITY OF CARE AWAKE AND ALERT. NO SOB. DENIES PAIN THE WHOLE SHIFT. ABLE TO VERBALIZE NEEDS WELL. USES CALL LIGHT FOR HELP.
[2018-04-25] MEDS: MORPHINE SULFATE 2 MG/ML SYR IVP PRN (07:55)
--- NOTE | 2018-04-25 07:55 | NUR ---
PT COMPLAINING OF PAIN 10/10 AT THE INCISION SITE. ADMINISTERED PAIN MED ORDERED. INFORMED PT TO USE CALL LIGHT FOR ANY NEEDS. NOT TO GET OFF FROM BED PAIN MED CAN CAUSE DROWSINESS, LOWERS BP AND DECREASES RESPIRATION, RISK FOR FALL. VERBALIZED UNDERSTANDING. PT EATING BREAKFAST. WILL CONTINUE TO MONITOR PT.
[2018-04-25 07:58] LABS: BASOPHILS % (AUTO) 0.1 % (0.0-2.0); EOSINOPHILS % (AUTO) 0.3 % (0.0-4.0); HEMATOCRIT 35.5 % (36-52); HEMOGLOBIN 11.8 g/dL (12.0-18.0); LYMPHOCYTES # (AUTO) 1.4 K/uL (2.0-11.5); LYMPHOCYTES % (AUTO) 11.9 % (20.5-51.1); MEAN CORPUSCULAR HEMOGLOBIN 31 pg (27-31); MEAN CORPUSCULAR HGB CONC 33 g/dL (33-37); MEAN CORPUSCULAR VOLUME 94.8 fL (80-94); MONOCYTES # (AUTO) 1.3 K/uL (0.8-1.0); MONOCYTES % (AUTO) 11.3 % (1.7-9.3); NEUTROPHILS # (AUTO) 8.8 K/uL (1.8-7.7); NEUTROPHILS % (AUTO) 76.4 % (42.2-75.2); PLATELET COUNT (AUTO) 270 K/uL (140-450); RED BLOOD CELL COUNT(AUTO) 3.74 MIL/uL (4.20-6.10); WHITE BLOOD COUNT (AUTO) 11.5 K/uL (4.8-10.8)
[2018-04-25 08:00] VITALS: BP 109/70
[2018-04-25 08:14] LABS: CARBON DIOXIDE 22.8 mmol/L (21-32); CREATININE 0.9 mg/dL (0.7-1.3); POTASSIUM 3.8 mmol/L (3.5-5.1)
[2018-04-25 08:19] LABS: MAGNESIUM 1.8 mg/dL (1.8-2.4); PHOSPHORUS 2.4 mg/dL (2.5-4.9)
[2018-04-25] MEDS: LISINOPRIL 5 MG TAB PO SCH (09:00)
[2018-04-25] MEDS: SPIRONOLACTONE 25 MG TAB PO SCH (09:00)
[2018-04-25] MEDS ORDERED: cefTRIAXone 1,000 MG VIAL ONE (09:35)
[2018-04-25] MEDS: CARVEDILOL 3.125 MG TAB PO SCH ×2 (09:48→20:45)
[2018-04-25] MEDS: PHENAZOPYRIDINE 100 MG TAB PO SCH ×3 (09:48→17:29)
[2018-04-25] MEDS: HYDROcodone/APAP 5/325 MG 1 TAB TAB PO PRN ×2 (09:49→17:28)
[2018-04-25] MEDS: FUROSEMIDE 40 MG TAB PO SCH ×2 (09:49→20:45)
--- NOTE | 2018-04-25 09:59 | NUR ---
ADMINISTERED MEDS ORDERED TO PT. ADMINISTERED PAIN MEDS FOR PAIN MANAGEMENT. BP MEDS ON HOLD PER PARAMETERS, MD AWARE. PT TOLERATED WELL. ASKED TO USE CALL LIGHT FOR ANY HELP , BP MEDS AND PAIN MEDS CAN CAUSE LOW BP AND HIGH RISK FOR ALL. CALL LIGHT WITHIN REACH. VERBALIZED UNDERSTANDING. WILL CONTINUE TO MONITOR PT.
--- NOTE | 2018-04-25 10:49 | NUR ---
FAXED CONCURRENT REVIEW TO [facility] [phone] PHONE [phone] [id number] RAMANA
[2018-04-25] MEDS ORDERED: MORPHINE SULFATE 2 MG/ML SYR IVP PRN (11:00)
[2018-04-25 12:00] VITALS: BP 90/51
--- NOTE | 2018-04-25 12:00 | NUR ---
CHECKED ON PT. VS NOTED. DENIES PAIN. PT LYING COMFORTABLY ON BED. NO SIGN OF DISTRESS. ASKED TO USE CALL LIGHT FOR NAY HELP. VERBALIZED UNDERSTANDING. WILL CONTINUE TO MONITOR PT.
[2018-04-25 16:00] VITALS: BP 95/60
--- NOTE | 2018-04-25 16:15 | NUR ---
CHECKED ON PT . SLEEPING ON HIS BED. DENIES PAIN AT THIS TIME. ASKED HIM TO USE CALL LIGHT FOR ANY PAIN MEDS IF REQUIRED. VERBALIZED UNDERSTANDING. ALL SAFETY MEASURE IN PLACE. VS NORMAL. EMPTIED PT URINAL. HAS ORANGE COLOR. PT ABLE TO PEE. HAS COMFORTABLE , NO URINE RETENTION. WILL CONTINUE TO MONITOR PT.
--- NOTE | 2018-04-25 19:15 | NUR ---
ENDORSED PT TO PM NURSE. PT IN STABLE CONDITION.
--- NOTE | 2018-04-25 19:20 | NUR ---
RECEIVED FROM AM RN IN BED SLEEPING. NO COMPLAINTS DONE. TELEMETRY MONITORING. A/O X 4. NO REPORTED BLEEDING TO INGUINAL HERNIA REPAIR SITE BY AM RN. IVF SITE TO RFA #24 INTACT AND NO INFILTRATION.
[2018-04-25 20:37] VITALS: BP 99/57
[2018-04-25] MEDS: QUEtiapine FUMARATE 25 MG TAB PO SCH (20:45)
[2018-04-25] MEDS: ATORVASTATIN 20 MG TAB PO SCH (21:44)
--- NOTE | 2018-04-25 23:33 | NUR ---
SLEEPING AT THIS TIME. WAKES UP EASILY WHEN TOUCHED OR CALLED BY NAME. ABLE TO USE CALL LIGHT FOR HELP. NO SOB.
[2018-04-26 00:09] VITALS: BP 96/67
[2018-04-26] MEDS: HYDROcodone/APAP 5/325 MG 1 TAB TAB PO PRN ×3 (00:29→11:59)
--- NOTE | 2018-04-26 00:29 | NUR ---
AWAKE AND REQUESTED FOR A SNACK RT HUNGRY. PROVIDED WITH SANDWICH . MEDICATED WITH NORCO P.O. REQUESTED RT C/O PAIN TO SURGICAL SITE.
--- NOTE | 2018-04-26 01:00 | NUR ---
PT. SLEEPING AT THIS TIME.
[2018-04-26 04:00] VITALS: BP 98/60
--- NOTE | 2018-04-26 04:05 | NUR ---
AM PERSONAL HYGIENE RENDERED. TOTAL CARE. NO N/V . NO RESTLESSNESS. TELEMETRY MONITORING.
--- NOTE | 2018-04-26 07:30 | NUR ---
RECEIVED REPORT FROM DRUG ABUSE PROGRAM COORDINATOR RN. PT SLEEPING IN BED, AROUSABLE BY VOICE. COMPLAINING OF 6/10 PAIN AT SURGICAL SITE. S/P BILATERAL INGUINAL HERNIA REPAIR 04/24/18. WILL ADMIN NORCO PER MD ORDERS. NO OTHER COMPLAINTS OF DISCOMFORT. NIGHT RN REPORTS NO BLEEDING AT SURGICAL SITE. PT IS AMBULATORY. VOIDING IN URINAL. IV SITE PATENT AND ASYMPTOMATIC, RUNNING IVF PER MD ORDERS. PT MAY GO HOME TODAY. ALL SAFETY MEASURES IN PLACE, WILL CONTINUE TO MONITOR.
[2018-04-26 08:00] VITALS: BP 107/71
--- NOTE | 2018-04-26 08:30 | NUR ---
04/26/18 RD INITIAL ASSESSMENT COMPLETED PLEASE REFER TO NUTRITION ASSESSMENT UNDER CARE ACTIVITY FOR ESTIMATED NUTRITIONAL NEEDS. RD RECOMMENDATIONS: 1. CONTINUE ON CARDIAC DIET TOLERATED. 2. RD WILL F/U 7 DAYS; LOW RISK. JOAQUIN HUTCHINSON MS, RDN
[2018-04-26] MEDS: FUROSEMIDE 40 MG TAB PO SCH (09:12)
[2018-04-26] MEDS: SPIRONOLACTONE 25 MG TAB PO SCH (09:12)
[2018-04-26] MEDS: CARVEDILOL 3.125 MG TAB PO SCH (09:13)
[2018-04-26] MEDS: LISINOPRIL 5 MG TAB PO SCH (09:13)
--- NOTE | 2018-04-26 09:13 | NUR ---
SCHEDULED MEDICATIONS ADMINISTERED AT THIS TIME. PT RESTING IN BED, AROUSABLE BY VOICE. NO COMPLAINTS OF PAIN OR DISCOMFORT. WILL CONTINUE TO MONITOR.
[2018-04-26] MEDS: DEXT 5% / NACL 0.45% 1,000 ML IV SCH (10:20)
--- NOTE | 2018-04-26 11:59 | NUR ---
NORCO ADMINISTERED FOR 5/10 PAIN AT SURGICAL SITE. WILL CONTINUE TO MONITOR.
[2018-04-26 12:00] VITALS: BP 90/59
--- NOTE | 2018-04-26 13:00 | NUR ---
PT INFORMED THAT DISCHARGE ORDER IS ACTIVE. PT STATES HE WILL CALL GIRLFRIEND TO PICK HIM UP FROM HOSPITAL.
[2018-04-26] MEDS ORDERED: L. R1CAP PO (13:09)
[2018-04-26] MEDS ORDERED: SULF-58 PO (13:09)
[2018-04-26] MEDS ORDERED: ACET-9525 PO (13:09)
--- NOTE | 2018-04-26 14:30 | NUR ---
DISCHARGE PAPERWORK, INCLUDING NEW PRESCRIPTIONS AND INSTRUCTIONS TO FOLLOW UP WITH PCP AND SURGEON, GIVEN TO PT. MEDICATION RECONCILIATION TEACHING GIVEN. PHOTO TAKEN OF INGUINAL SURGICAL INCISION. NO DISCHARGE NOTED. WOUND IS CLEAN AND DRY. DRESSING CHANGED. INCISION CARE TEACHING GIVEN. PT VERBALIZED COMPLETE UNDERSTANDING OF ALL DISCHARGE TEACHING. ID BANDS REMOVED. PT PULLED OUT IV CANNULA HIMSELF. CANNULA INTACT. IV INSERTION SITE IS NOT BLEEDING, NO HEMATOMA NOTED. ALL PERSONAL BELONGINGS ARE WITH PT. PT DISCHARGED FROM UNIT VIA WHEELCHAIR AND WILL GO HOME VIA PRIVATE VEHICLE WITH GIRLFRIEND.
== END 2018-04-26 14:30 | disposition home or self-care (01) | DRG 228 ==
LOC: MED 05:50 → MTU 10:23
PROVIDERS: ADMIT General Practice; ATTEND General Practice
PROC: 0YU50JZ Supplement Right Inguinal Region with Synthetic Substitute, Open Approach (ICD-10-PCS; principal; 2018-04-24 14:00)
DX: K40.30 Unilateral inguinal hernia, with obstruction, without gangrene, not specified as recurrent (principal); E44.0 Moderate protein-calorie malnutrition; I50.43 Acute on chronic combined systolic (congestive) and diastolic (congestive) heart failure; N12 Tubulo-interstitial nephritis, not specified as acute or chronic; E87.1 Hypo-osmolality and hyponatremia; F20.9 Schizophrenia, unspecified; I11.0 Hypertensive heart disease with heart failure; E83.39 Other disorders of phosphorus metabolism; J44.9 Chronic obstructive pulmonary disease, unspecified; N28.1 Cyst of kidney, acquired; K40.90 Unilateral inguinal hernia, without obstruction or gangrene, not specified as recurrent; E78.5 Hyperlipidemia, unspecified; J98.11 Atelectasis; R31.9 Hematuria, unspecified; Z96.642 Presence of left artificial hip joint; F17.210 Nicotine dependence, cigarettes, uncomplicated; F14.90 Cocaine use, unspecified, uncomplicated; F12.90 Cannabis use, unspecified, uncomplicated; F15.10 Other stimulant abuse, uncomplicated; Z88.6 Allergy status to analgesic agent; Z79.82 Long term (current) use of aspirin; Z79.51 Long term (current) use of inhaled steroids; Z79.899 Other long term (current) drug therapy; Z82.3 Family history of stroke; Z59.0 Homelessness; D53.9 Nutritional anemia, unspecified
CPT/HCPCS: 36415; 51702; 71045; 76770; 76870; 80048; 80053; 80305; 81001; 82150; 83036; 83690; 83735; 83880; 84100; 84134; 84439; 84443; 84484; 85025; 85610; 85730; 87081; 87086; 87186; 93005; 96361; 96365; 96375; 96376; 99285; C1781; J0696; J2060; J2250; J2270; J2704; J3010; J3490; J7030; J7060; Q0092

== ENCOUNTER 2018-08-17 01:30 | Emergency (ER) | payer MEDICARE, OTHER ==
[~2018-08-17] VITALS: Ht 193 cm; Wt 81.6 kg
[~2018-08-17 01:30] MED LIST changes: +ACET-9525 PO; +L. R1CAP PO; +SULF-58 PO
[2018-08-17 01:33] VITALS: BP 125/90
--- NOTE | 2018-08-17 01:33 | NUR ---
TO BED # 9 AMBULATORY, REPORT GIVEN TO HARRY SOUZA
--- NOTE | 2018-08-17 01:40 | NUR ---
24 YO F BIB MOTHER. C/O SMALL ROUND ABCESS ON INNER LEFT BUTTOCK; 8/10 PAIN IN AREA. DENIES N/V/D; SOB; CHEST PAIN; LOC. DENIES FEVER OR CHILLS. DENIES H/A; BLURRED VISION; EPIGASTRIC PAIN. PT DENIES LOC. AAOX4. PT IN BED; HOB ELEVATED. BED IN LOWER LOCKED POSITION. WILL CONTINUE TO MONITOR. HX: HYPERTENSION.
--- NOTE | 2018-08-17 01:42 | NUR ---
IRA KAT AT BEDSIDE FOR EVAL.
[2018-08-17] MEDS ORDERED: FUROSEMIDE 40 MG TAB PO ONE (01:45)
[2018-08-17] MEDS ORDERED: ACETAMINOPHEN EXTRA STRENGTH 500 MG TAB PO ONE (02:15)
--- NOTE | 2018-08-17 02:40 | NUR ---
Patient discharged with v/s stable. Written and verbal after care instructions given and explained. Patient alert, oriented and verbalized understanding of instructions. Ambulatory with steady gait. All questions addressed prior to discharge. ID band removed. Patient advised to follow up with PMD. Rx of Potassium Chloride and Lasix given. Patient educated on indication of medication including possible reaction and side effects. Opportunity to ask questions provided and answered. ID band removed.
[2018-08-17 02:46] VITALS: BP 127/89
== END 2018-08-17 02:46 | disposition home or self-care (01) ==
LOC: MED 01:30
DX: I11.0 Hypertensive heart disease with heart failure (principal); I50.9 Heart failure, unspecified; J44.9 Chronic obstructive pulmonary disease, unspecified; F17.200 Nicotine dependence, unspecified, uncomplicated; Z76.0 Encounter for issue of repeat prescription; Z88.6 Allergy status to analgesic agent; Z79.899 Other long term (current) drug therapy; Z79.82 Long term (current) use of aspirin
CPT/HCPCS: 99283

== ENCOUNTER 2018-10-01 20:25 | Emergency (ER) | payer MEDICARE, OTHER ==
[~2018-10-01] VITALS: Ht 193 cm; Wt 81.6 kg
[~2018-10-01 20:25] MED LIST changes: -RANI-485 PO; +RANI-745 PO
--- NOTE | 2018-10-01 20:25 | NUR ---
PATIENT PRESENTS TO ED WITH C/O COUGH X 1 WEEK AND ABD. SKIN IS PINK/WARM/DRY; AAOX4 WITH EVEN AND STEADY GAIT; LUNGS CLEAR BL, NON-PRODUCTIVE COUGH NOTED; HR EVEN AND REGULAR; PATIENT STATES PAIN OF 8/10 AT THIS TIME; PATIENT POSITIONED FOR COMFORT; HOB ELEVATED; BEDRAILS UP X2; BED DOWN. ER MD MADE AWARE OF PT STATUS.
[2018-10-01 20:30] VITALS: BP 113/77
--- NOTE | 2018-10-01 21:04 | NUR ---
PT TAKEN TO BED 8
[2018-10-01] MEDS ORDERED: ALBUTEROL SULFATE/IPRATROPIU 3 ML SOL IH ONE (21:25)
[2018-10-01] MEDS ORDERED: NACL 0.9% 1,000 ML IV ONE (21:30)
--- NOTE | 2018-10-01 21:42 | NUR ---
Respiratory Therapist at bedside for respiratory intervention.
[2018-10-01 22:32] LABS: BASOPHILS # (AUTO) 0.1 K/uL (0.00-0.22); BASOPHILS % (AUTO) 0.6 % (0.0-2.0); EOSINOPHILS # (AUTO) 0.3 K/uL (0-0.4); EOSINOPHILS % (AUTO) 2.3 % (0.0-4.0); HEMATOCRIT 36.8 % (36-52); HEMOGLOBIN 11.9 g/dL (12.0-18.0); LYMPHOCYTES # (AUTO) 2.2 K/uL (2.0-11.5); LYMPHOCYTES % (AUTO) 19.8 % (20.5-51.1); MEAN CORPUSCULAR HEMOGLOBIN 31 pg (27-31); MEAN CORPUSCULAR HGB CONC 32 g/dL (33-37); MEAN CORPUSCULAR VOLUME 94.2 fL (80-94); MONOCYTES # (AUTO) 0.9 K/uL (0.8-1.0); MONOCYTES % (AUTO) 8.6 % (1.7-9.3); NEUTROPHILS # (AUTO) 7.5 K/uL (1.8-7.7); NEUTROPHILS % (AUTO) 68.7 % (42.2-75.2); PLATELET COUNT (AUTO) 222 K/uL (140-450); RED BLOOD CELL COUNT(AUTO) 3.91 MIL/uL (4.20-6.10); RED CELL DISTRIBUTION WIDTH 14.3 % (11.6-13.7); WHITE BLOOD COUNT (AUTO) 10.9 K/uL (4.8-10.8)
[2018-10-01 22:47] LABS: BARBITURATE, URINE NEG. ng/ml (NEG <=200); BENZODIAZEPINE, URINE NEG. ng/mL (NEG <=200); CANNABINOID, URINE NEG. ng/mL (NEG <=50); COCAINE, URINE NEG. ng/mL (NEG <=300); OPIATE, URINE NEG. ng/mL (NEG <=2000); PHENCYCLIDINE SCREEN,URINE NEG. ng/mL (NEG <=25)
[2018-10-01 22:47] LABS: ANION GAP 8.8 (8-16); CARBON DIOXIDE 26.5 mmol/L (21-32); CREATININE 1.4 mg/dL (0.7-1.3); POTASSIUM 3.3 mmol/L (3.5-5.1)
[2018-10-01 22:53] LABS: ALBUMIN 3.3 g/dL (3.4-5.0); TOTAL BILIRUBIN 0.8 mg/dL (0.0-1.0)
[2018-10-01] MEDS ORDERED: LEVOFLOXACIN 750 MG TAB PO ONE (23:30)
--- NOTE | 2018-10-01 23:49 | NUR ---
DPatient discharged with v/s stable. Written and verbal after care instructions given and explained. Patient alert, oriented and verbalized understanding of instructions. Ambulatory with steady gait. All questions addressed prior to discharge. ID band removed. Patient advised to follow up with PMD. Rx of LEVAQUIN given. Patient educated on indication of medication including possible reaction and side effects. Opportunity to ask questions provided and answered.
[2018-10-01 23:50] VITALS: BP 126/78
[2018-10-02 01:07] LABS: APPEARANCE,URINE CLOUDY (CLEAR); BILIRUBIN,URINE NEGATIVE (NEGATIVE); BLOOD, URINE 3+ (NEGATIVE); COLOR,URINE YELLOW (YELLOW); PH,URINE 6.5 (5.0-9.0); UGLUCOSE NEGATIVE (NEGATIVE)
[2018-10-02 01:08] LABS: LEUKOCYTE ESTERASE ,URINE 2+ (NEGATIVE); NITRITE, URINE NEGATIVE (NEGATIVE)
[2018-10-02 01:09] LABS: RBC,URINE TOO NUMEROUS TO COUN /HPF (0-5); WBC,URINE TOO MANY TO COUNT /HPF (0-5)
== END 2018-10-01 23:49 | disposition home or self-care (01) ==
LOC: MED 20:25
DX: J44.1 Chronic obstructive pulmonary disease with (acute) exacerbation (principal); D64.9 Anemia, unspecified; N17.9 Acute kidney failure, unspecified; E87.6 Hypokalemia; F15.90 Other stimulant use, unspecified, uncomplicated; I50.9 Heart failure, unspecified; I11.0 Hypertensive heart disease with heart failure; F17.200 Nicotine dependence, unspecified, uncomplicated; Z88.8 Allergy status to other drugs, medicaments and biological substances; Z79.82 Long term (current) use of aspirin; Z79.899 Other long term (current) drug therapy; Z59.0 Homelessness
CPT/HCPCS: 36415; 71045; 80053; 80305; 81001; 84484; 85025; 87086; 87804; 93005; 94640; 99284; J7030; J7620

== ENCOUNTER 2018-12-06 17:27 | Inpatient (IN) | payer OTHER, MEDICARE ==
[~2018-12-06] VITALS: Ht 193 cm; Wt 80.7 kg
[2018-12-06 17:28] VITALS: BP 111/85
--- NOTE | 2018-12-06 17:34 | NUR ---
PT PLACED INTO W/C AND PLACED INTO CHAIR E.
--- NOTE | 2018-12-06 17:38 | NUR ---
to radiology via
[2018-12-06] MEDS ORDERED: methylPREDNISolone SS 125 MG/2 ML VIAL IVP ONE (17:40)
[2018-12-06] MEDS ORDERED: NACL 0.9% 500 ML IV ONE (17:40)
[2018-12-06] MEDS ORDERED: ALBUTEROL 0.083% 2.5 MG/3 ML NEBU INH ONE (17:40)
[2018-12-06] MEDS ORDERED: FUROSEMIDE 40 MG/4 ML VIAL IVP ONE (17:40)
--- NOTE | 2018-12-06 17:43 | NUR ---
returned from radiology
--- NOTE | 2018-12-06 17:45 | NUR ---
PT W/C ASSISTED INTO BED 5.
--- NOTE | 2018-12-06 17:45 | NUR ---
BIBA W C/O SOB, TACHYCARDIC AT 113 BPM, TACHYPNEA 24 BREATHS PER MIN, LABORED BREATHING. HX OF COPD DENIES N/V/D; SKIN IS WARM/DRY; AAOX4 WITH UNSTEADY GAIT; ADVENTITIOUS LUNG SOUNDS HEARD THROUGHOUT BILAT; PRODUCTIVE COUGH PRESENT, HR TACHY AT 113, ERMD AWARE; PATIENT STATES PAIN OF 0/10 AT THIS TIME; PATIENT POSITIONED FOR COMFORT; HOB ELEVATED; BEDRAILS UP X1; BED DOWN. ER MD MADE AWARE OF PT STATUS.
--- NOTE | 2018-12-06 18:03 | NUR ---
Breathing treatment administered at bedside by respiratory therapist.
--- NOTE | 2018-12-06 18:10 | NUR ---
PER PT, PT TOOK 40MG PO LASIX X3 HOURS [employer], ER MD DR. DAVIS MADE AWARE OK TO GIVE 20 MG LASIX IV.
[2018-12-06 18:13] LABS: BASOPHILS # (AUTO) 0.1 K/uL (0.00-0.22); EOSINOPHILS # (AUTO) 0.1 K/uL (0-0.4); HEMATOCRIT 39.5 % (36-52); HEMOGLOBIN 12.9 g/dL (12.0-18.0); LYMPHOCYTES % (AUTO) 26.7 % (20.5-51.1); MEAN CORPUSCULAR HEMOGLOBIN 30 pg (27-31); MEAN CORPUSCULAR HGB CONC 33 g/dL (33-37); MEAN CORPUSCULAR VOLUME 91.2 fL (80-94); MONOCYTES # (AUTO) 0.7 K/uL (0.8-1.0); MONOCYTES % (AUTO) 10.1 % (1.7-9.3); NEUTROPHILS # (AUTO) 4.5 K/uL (1.8-7.7); NEUTROPHILS % (AUTO) 61.2 % (42.2-75.2); PLATELET COUNT (AUTO) 248 K/uL (140-450); RED BLOOD CELL COUNT(AUTO) 4.33 MIL/uL (4.20-6.10); RED CELL DISTRIBUTION WIDTH 16.5 % (11.6-13.7); WHITE BLOOD COUNT (AUTO) 7.3 K/uL (4.8-10.8)
[2018-12-06 18:24] LABS: PROTHROMBIN TIME 13.3 secs (10.8-13.4)
[2018-12-06 18:26] LABS: ANION GAP 15.7 (8-16); CARBON DIOXIDE 23.8 mmol/L (21-32); CREATININE 1.4 mg/dL (0.7-1.3); POTASSIUM 3.5 mmol/L (3.5-5.1)
[2018-12-06 18:39] LABS: ALBUMIN 3.2 g/dL (3.4-5.0); TOTAL BILIRUBIN 2.4 mg/dL (0.0-1.0)
[2018-12-06 19:09] LABS: APPEARANCE,URINE CLEAR (CLEAR); BILIRUBIN,URINE 1+ (NEGATIVE); BLOOD, URINE NEGATIVE (NEGATIVE); COLOR,URINE DARK YELLOW (YELLOW); LEUKOCYTE ESTERASE ,URINE TRACE (NEGATIVE); NITRITE, URINE NEGATIVE (NEGATIVE); UGLUCOSE NEGATIVE (NEGATIVE)
[2018-12-06 19:15] LABS: RBC,URINE 0-5 /HPF (0-5); WBC,URINE 0-5 /HPF (0-5)
[2018-12-06 19:18] LABS: BARBITURATE, URINE NEG. ng/ml (NEG <=200); BENZODIAZEPINE, URINE NEG. ng/mL (NEG <=200); CANNABINOID, URINE NEG. ng/mL (NEG <=50); COCAINE, URINE NEG. ng/mL (NEG <=300); OPIATE, URINE NEG. ng/mL (NEG <=2000); PHENCYCLIDINE SCREEN,URINE NEG. ng/mL (NEG <=25)
[2018-12-06] MEDS ORDERED: ACETAMINOPHEN 325 MG TAB PO PRN (20:10)
[2018-12-06] MEDS ORDERED: HYDROcodone/APAP 7.5/325 MG 1 TAB PO PRN (20:10)
[2018-12-06] MEDS ORDERED: ONDANSETRON 4 MG/2 ML VIAL IVP PRN (20:10)
[2018-12-06 20:50] VITALS: BP 129/95
--- NOTE | 2018-12-06 20:50 | NUR ---
Patient will be admitted to care of DR. AVILA. Admited to TELE. Will go to room 120A . Belongings list completed. Report tO ROWENA SOUZA.
--- NOTE | 2018-12-06 20:50 | NUR ---
RECEIVED REPORT FROM ELI SUOZA. PT IS AAOX4. ON ROOM AIR. RESPIRATIONS ARE EQUAL AND LABORED. C/C SOB ORDER FOR BIPAP BUT PER FOOD TECHNOLOGIST PT BEEN REMOVING IT D/T INTERMITTED COUGH. PER PT HAD COUGH FOR 1 MONTH. LUNG SOUNDS FLO RALES. PT EKG SHOWED VT AND VENT BIGEMINY. PT ON TELE MONITOR. SKIN INTACT. BLE PITTING EDEMA +2. PLAN OF CARE DISCUSSED WITH PT. MRSA SWAB OBTAINED. WHITE BOARD UP TO DATE. VS: 100% RA, 110HR, 129/95, RR 24, 98.2. CALL LIGHT WITHIN REACH.
[2018-12-06] MEDS ORDERED: AZITHROMYCIN 250 MG TAB PO ONE (21:00)
[2018-12-06 21:21] LABS: FREE T4 (FREE THYROXINE) 1.19 ng/dL (0.76-1.46); MAGNESIUM 2.3 mg/dL (1.8-2.4); PHOSPHORUS 2.9 mg/dL (2.5-4.9); THYROID STIMULATING HORMONE 2.41 uIU/mL (0.34-3.74)
[2018-12-06] MEDS: DOCUSATE SODIUM 100 MG GELCAP PO SCH (21:54)
--- NOTE | 2018-12-06 21:54 | NUR ---
DUE MEDICATIONS GIVEN PT TOLERATED WELL. PT EATING DINNER NO S/S OF DISTRESS. SAFETY MEASURES ARE IN PLACE. CALL LIGHT WITHIN REACH.
[2018-12-06] MEDS: NACL 0.9% 1,000 ML IV SCH (22:00)
[2018-12-07] VITALS: BP 130/94
--- NOTE | 2018-12-07 | NUR ---
VITAL SIGNS ARE WITHIN NORMAL LIMITS. ALL NEEDS MET AT THIS TIME. SAFETY MEASURES ARE IN PLACE. CALL LIGHT IS WITHIN REACH.
[2018-12-07] MEDS ORDERED: ALBUTEROL SULFATE/IPRATROPIU 3 ML SOL IH PRN (01:30)
--- NOTE | 2018-12-07 01:45 | NUR ---
PT HAS AN EPISODE OF SLOW V TACH. B/P 135/100 HR 107. PT IS ASYMPTOMATIC. DR YING MADE AWARE. TO ORDER EKG. WILL CONTINUE TO MONITOR. ALL NEEDS MET AT THIS TIME. CALL LIGHT WITHIN REACH.
[2018-12-07] MEDS ORDERED: MEDICATION REC. PHARMACY CONS. 1 EA MISC MC PRN (01:50)
--- NOTE | 2018-12-07 02:06 | NUR ---
EKG DONE. PT RESTING IN BED. MADE AWARE OF STRICT I&O AND FLUID RESTRICTION OF 1500ML/DAILY STATES UNDERSTANDING. EDUCATED PT TO CALL FOR ASSISTANCE. SAFETY MEASURES ARE IN PLACE. CALL LIGHT WITHIN REACH. WILL CONTINUE TO MONITOR.
[2018-12-07 04:00] VITALS: BP 133/89
--- NOTE | 2018-12-07 04:00 | NUR ---
VITAL SIGNS ARE WITHIN NORMAL LIMITS. ALL NEED MET AT THIS TIME. ALL SAFETY MEASURES ARE IN PLACE. CALL LIGHT WITHIN REACH. WILL CONTINUE TO MONITOR.
--- NOTE | 2018-12-07 05:00 | NUR ---
PT SITTING UP IN BED EATING JELLO. ALL NEEDS MET AT THIS TIME. CALL LIGHT WITHIN REACH. BED ALARM ON AND LOWEST POSITION.
[2018-12-07] MEDS ORDERED: methylPREDNISolone SS 125 MG/2 ML VIAL IVP SCH (06:00)
--- NOTE | 2018-12-07 06:35 | NUR ---
PATIENT HAS BEEN SCREENED AND CATEGORIZED MODERATE NUTRITION RISK. PATIENT WILL BE SEEN WITHIN 3-5 DAYS OF ADMISSION. 12/09/18-12/11/18 JOAQUIN HUTCHINSON MS, RDN
--- NOTE | 2018-12-07 07:19 | NUR ---
GAVE BEDSIDE REPORT TO DAY SHIFT RN. PT ENDORSED IN STABLE CONDITION.
--- NOTE | 2018-12-07 07:20 | NUR ---
RECEIVED HAND OFF REPORT FROM WHARF HELPER NURSE. PT IS STABLE AND AMBULATED TO RESTROOM. TRIMMING ASSEMBLER IS AT BEDSIDE WAITING FOR PATIENT TO COME OUT OF RESTROOM. WILL CONTINUE TO MONITOR.
[2018-12-07 08:00] VITALS: BP 130/83
[2018-12-07] MEDS: SPIRONOLACTONE 50 MG TAB PO SCH (08:26)
[2018-12-07] MEDS: DOCUSATE SODIUM 100 MG GELCAP PO SCH ×2 (08:27→21:05)
[2018-12-07] MEDS: FUROSEMIDE 40 MG/4 ML VIAL IVP SCH ×2 (08:27→17:43)
[2018-12-07] MEDS: LISINOPRIL 5 MG TAB PO SCH (08:27)
[2018-12-07] MEDS: PANTOPRAZOLE 40 MG INJ VIAL IVP SCH (08:28)
[2018-12-07 08:40] LABS: EOSINOPHILS % (AUTO) 0.1 % (0.0-4.0); HEMATOCRIT 38.8 % (36-52); HEMOGLOBIN 12.5 g/dL (12.0-18.0); LYMPHOCYTES # (AUTO) 0.5 K/uL (2.0-11.5); LYMPHOCYTES % (AUTO) 12.9 % (20.5-51.1); MEAN CORPUSCULAR HEMOGLOBIN 30 pg (27-31); MEAN CORPUSCULAR HGB CONC 32 g/dL (33-37); MEAN CORPUSCULAR VOLUME 92.2 fL (80-94); MONOCYTES # (AUTO) 0.1 K/uL (0.8-1.0); MONOCYTES % (AUTO) 2.5 % (1.7-9.3); NEUTROPHILS # (AUTO) 3.1 K/uL (1.8-7.7); NEUTROPHILS % (AUTO) 84.5 % (42.2-75.2); PLATELET COUNT (AUTO) 230 K/uL (140-450); RED BLOOD CELL COUNT(AUTO) 4.21 MIL/uL (4.20-6.10); RED CELL DISTRIBUTION WIDTH 16.5 % (11.6-13.7); WHITE BLOOD COUNT (AUTO) 3.7 K/uL (4.8-10.8)
[2018-12-07 08:44] LABS: ANION GAP 16.6 (8-16); CREATININE 1.3 mg/dL (0.7-1.3); POTASSIUM 3.6 mmol/L (3.5-5.1)
[2018-12-07 08:49] LABS: CHOL/HDL RATIO 3.8 (1-4.5); MAGNESIUM 2.4 mg/dL (1.8-2.4); PHOSPHORUS 2.9 mg/dL (2.5-4.9)
[2018-12-07] MEDS ORDERED: NON-FORMULARY ITEM (Fluticasone/Salmeterol* (Advair 250-50 Diskus*) 1 PUFF) IH SCH (09:00)
[2018-12-07] MEDS ORDERED: ECOTRIN 81 MG TABEC PO SCH (09:00)
[2018-12-07] MEDS: FAMOTIDINE 20 MG TAB PO SCH ×2 (09:00→21:05)
--- NOTE | 2018-12-07 09:00 | NUR ---
HAD TO MIX THE ROCEPHIN BECAUSE IT WASNT BROUGHT FROM PHARMACY. SINCE I MIXED IT, IT SCANNED DIFFERENTLY.
[2018-12-07] MEDS: ASPIRIN 81 MG TAB.CHEW PO SCH (10:21)
[2018-12-07] MEDS ORDERED: cefTRIAXone 1,000 MG VIAL ONE (10:24)
--- NOTE | 2018-12-07 11:14 | NUR ---
RECEIVED CRITICAL LAB VALUE LACTIC ACID 5.0 FROM LAB. WILL REPORT TO
[2018-12-07 12:00] VITALS: BP 135/85
--- NOTE | 2018-12-07 13:00 | NUR ---
FREQUENT ROUNDING PT IS ASLEEP IN BED. IV INFUSING. NO SIGNS OF INFILTRATION. PT APPEARS STABLE AND IN NO APPARENT DISTRESS. ALL SAFETY MEASURES ARE IN PLACE. WILL CONTINUE TO MONITOR.
--- NOTE | 2018-12-07 14:41 | NUR ---
PT WAS PICKED UP TO GO FOR A CT SCAN OF THE ABD AND PELVIS.
--- NOTE | 2018-12-07 15:00 | NUR ---
PT RETURNED FROM CT. PT SWITCHED ROOMS TO 124B. IV IS IN PLACE RUNNING IVF. IV SITE IS PATENT AND SHOWS NO SIGNS OF INFILTRATION OR INFLAMMATION. NASAL CANULA IS IN PLACE 2L O2. PT HAS ALL BELONGINGS. PT IS RESTING COMFORTABLY AND ALL SAFETY MEASURES ARE IN PLACE. WILL CONTINUE TO MONITOR.
[2018-12-07 16:00] VITALS: BP 118/89
--- NOTE | 2018-12-07 16:20 | NUR ---
PT IS ASLEEP IN BED. NOTABLE CHEST RISE AND FALL. O2 2L VIA NASAL CANULA. IVF IS INFUSING W NO SIGNS OF INFLAMMATION OR INFILTRATION. PT IS STABLE AND APPEARS IN NO APPARENT DISTRESS. ALL SAFETY MEASURES ARE IN PLACE. WILL CONTINUE TO MONITOR
--- NOTE | 2018-12-07 18:17 | NUR ---
PT RESTING COMFORTABLY IN BED. PT IS STABLE WITH NO SIGNS OF DISTRESS. IVF IS INFUSING. IV SITE SHOWS NO SIGNS OF INFILTRATION OR INFLAMMATION. NASAL CANULA ON 2L O2. ALL SAFETY MEASURES ARE IN PLACE, WILL CONTINUE TO MONITOR.
--- NOTE | 2018-12-07 19:21 | NUR ---
ENDORSED PT TO MARKETING CONSULTANT NURSE. PT IS STABLE IN NO APPARENT DISTRESS. IV FLUID IS INFUSING IV SITE SHOWS NO SIGNS OF INFILTRATION OR INFLAMMATION. ALL SAFETY MEASURES ARE IN PLACE.
--- NOTE | 2018-12-07 19:25 | NUR ---
Received endorsement from AM shift RN; patient seen ambulating in the castell[place], now in bed. Patient is A/Ox4, able to make needs known. Introduced self, updated board. Receiving O2 at 2LPM via N/C, no SOB or distress noted. Iv site on L hand, 20 gauge, intact, running IVF at 10mL/hr. Skin intact. Bed in the lowest position, call light within reach. Initial assessment done. Will continue to monitor.
[2018-12-07] MEDS: ALBUTEROL SULFATE/IPRATROPIU 3 ML SOL IH SCH (19:39)
[2018-12-07 20:00] VITALS: BP 121/90
[2018-12-07] MEDS ORDERED: AZITHROMYCIN 250 MG TAB PO SCH (21:00)
--- NOTE | 2018-12-07 21:00 | NUR ---
Vitals taken, due meds given, tolerated well.
[2018-12-07] MEDS: NACL 0.9% 1,000 ML IV SCH (21:03)
[2018-12-07] MEDS: QUEtiapine FUMARATE 25 MG TAB PO SCH (21:05)
[2018-12-07] MEDS: ATORVASTATIN 20 MG TAB PO SCH (21:05)
--- NOTE | 2018-12-07 21:05 | NUR ---
Patient is currently using bedside commode, no distress noted. Patient stated he wanted to ambulate in the hallway before going to bed. Will continue to monitor.
--- NOTE | 2018-12-07 23:20 | NUR ---
Vitals taken, no distress noted. Patient is sleeping on his right side, visible chest rise and fall noted.
[2018-12-08] VITALS (7 sets, daily range): BP systolic 94–132; BP diastolic 53–90
[2018-12-08] MEDS: ALBUTEROL SULFATE/IPRATROPIU 3 ML SOL IH SCH ×4 (01:00→19:25)
--- NOTE | 2018-12-08 01:22 | NUR ---
Checks made. Patient asleep, visible chest rise and fall noted.
--- NOTE | 2018-12-08 01:57 | NUR ---
Endorsed patient to date night sitter RN Beth for continuity of care.
--- NOTE | 2018-12-08 02:00 | NUR ---
RECEIVED PT FROM EMIR RN PT IS AAOX4 RESTIN;G DANITA BED ON TELMETRY SR NOT DISTRESS NOTED AT THIS TIME
--- NOTE | 2018-12-08 04:00 | NUR ---
SPONGE BATH GIVEN LINEN CHANGED NOT DISTRESS NOTED PT ON TELEMETRY ST
[2018-12-08] MEDS ORDERED: methylPREDNISolone SS 40 MG/ML VIAL IVP SCH (06:00)
--- NOTE | 2018-12-08 06:00 | NUR ---
PT SLEEPING ON TELE ST REPOSITIONED Q2H
[2018-12-08 07:04] LABS: BASOPHILS % (AUTO) 0.1 % (0.0-2.0); HEMATOCRIT 36.9 % (36-52); HEMOGLOBIN 11.9 g/dL (12.0-18.0); LYMPHOCYTES # (AUTO) 0.8 K/uL (2.0-11.5); LYMPHOCYTES % (AUTO) 5.9 % (20.5-51.1); MEAN CORPUSCULAR HEMOGLOBIN 30 pg (27-31); MEAN CORPUSCULAR HGB CONC 32 g/dL (33-37); MEAN CORPUSCULAR VOLUME 91.5 fL (80-94); MONOCYTES # (AUTO) 0.6 K/uL (0.8-1.0); MONOCYTES % (AUTO) 4.5 % (1.7-9.3); NEUTROPHILS # (AUTO) 12.2 K/uL (1.8-7.7); NEUTROPHILS % (AUTO) 89.5 % (42.2-75.2); PLATELET COUNT (AUTO) 234 K/uL (140-450); RED BLOOD CELL COUNT(AUTO) 4.04 MIL/uL (4.20-6.10); RED CELL DISTRIBUTION WIDTH 16.3 % (11.6-13.7); WHITE BLOOD COUNT (AUTO) 13.6 K/uL (4.8-10.8)
--- NOTE | 2018-12-08 07:12 | NUR ---
;PT WILL BE ENDORSED TO DAY SHIFT NURSE FOR CONTINUITY OF CARE
--- NOTE | 2018-12-08 07:13 | NUR ---
Received bedside report from pm nurse Beth. Pt asleep, arousable by auditory stimuli. No c/o discomfort, respirations even & nonlabored, FLACC 0. Left hand IV out, cannula intact. No bleeding noted from insertion site, no swelling to L hand. IVF NS @ 10ml/hr held. Will insert new IV. Call light within reach.
[2018-12-08 07:15] LABS: ANION GAP 14.6 (8-16); CARBON DIOXIDE 24.2 mmol/L (21-32); CREATININE 1.3 mg/dL (0.7-1.3); POTASSIUM 3.8 mmol/L (3.5-5.1)
[2018-12-08] MEDS: LISINOPRIL 5 MG TAB PO SCH ×2 (09:00→10:28)
[2018-12-08] MEDS: DOCUSATE SODIUM 100 MG GELCAP PO SCH ×2 (09:15→21:29)
[2018-12-08] MEDS: ASPIRIN 81 MG TAB.CHEW PO SCH (09:15)
[2018-12-08] MEDS: FAMOTIDINE 20 MG TAB PO SCH ×2 (09:15→21:29)
[2018-12-08] MEDS: PANTOPRAZOLE 40 MG INJ VIAL IVP SCH (09:31)
[2018-12-08] MEDS: FUROSEMIDE 40 MG/4 ML VIAL IVP SCH ×2 (10:27→16:32)
[2018-12-08] MEDS: SPIRONOLACTONE 50 MG TAB PO SCH (10:28)
--- NOTE | 2018-12-08 12:00 | NUR ---
Pt c/o feeling SOB after walking back from toilet. Pt sitting on chair at bedside. Vital signs obtained, SaO2 97% via pulse ox, RR22 even & nonlabored. Encourage pt to take frequent rest periods in between ADLs. Pt verbalized understanding & agree with plan of care. Per pt he is breathing better after rest.
--- NOTE | 2018-12-08 13:10 | NUR ---
Pt request to hold IVF d/t IV line always getting tangled in his sheets & siderails. NS held per pt request. Left hand IV intact & patent; IV saline locked. Call light within reach.
--- NOTE | 2018-12-08 18:28 | NUR ---
Pt sitting on chair at bedside, eating dinner. Pt cheerful, no signs of distress, no c/o discomfort. Call light within reach. Left hand IV saline lock intact & asymptomatic.
--- NOTE | 2018-12-08 19:18 | NUR ---
Bedside report given to pm nurse Steve.
--- NOTE | 2018-12-08 19:20 | NUR ---
Received endorsement from AM shift RN; patient seen ambulating in the castellano. Patient is A/Ox4, able to make needs known. Introduced self, updated board. No SOB or distress noted, on room air. IV site on L hand, 22 gauge, intact, running IVF at 10mL/hr. Skin intact. Bed in the lowest position, call light within reach. Initial assessment done. Will continue to monitor.
[2018-12-08] MEDS: NACL 0.9% 1,000 ML IV SCH (20:09)
--- NOTE | 2018-12-08 20:40 | NUR ---
Vitals taken, due meds given. Tolerated well.
[2018-12-08] MEDS: QUEtiapine FUMARATE 25 MG TAB PO SCH (21:29)
[2018-12-08] MEDS: ATORVASTATIN 20 MG TAB PO SCH (21:29)
--- NOTE | 2018-12-08 22:00 | NUR ---
Frequent checks made, no distress noted.
[2018-12-09] VITALS: BP 103/69
--- NOTE | 2018-12-09 00:05 | NUR ---
Vitals taken, patient asleep on his left side, visible chest rise and fall noted.
[2018-12-09] MEDS: ALBUTEROL SULFATE/IPRATROPIU 3 ML SOL IH SCH ×3 (01:09→13:00)
--- NOTE | 2018-12-09 01:40 | NUR ---
Rounds done, no SOB or distress noted.
--- NOTE | 2018-12-09 03:35 | NUR ---
Vitals taken, patient asleep on his right side, no SOB or distress noted.
[2018-12-09 04:00] VITALS: BP 106/57
[2018-12-09 06:51] LABS: EOSINOPHILS # (AUTO) 0.1 K/uL (0-0.4); EOSINOPHILS % (AUTO) 0.7 % (0.0-4.0); HEMATOCRIT 36.4 % (36-52); HEMOGLOBIN 11.7 g/dL (12.0-18.0); LYMPHOCYTES # (AUTO) 2.3 K/uL (2.0-11.5); LYMPHOCYTES % (AUTO) 21.1 % (20.5-51.1); MEAN CORPUSCULAR HEMOGLOBIN 30 pg (27-31); MEAN CORPUSCULAR HGB CONC 32 g/dL (33-37); MEAN CORPUSCULAR VOLUME 91.5 fL (80-94); MONOCYTES # (AUTO) 0.7 K/uL (0.8-1.0); MONOCYTES % (AUTO) 6.4 % (1.7-9.3); NEUTROPHILS # (AUTO) 7.7 K/uL (1.8-7.7); NEUTROPHILS % (AUTO) 71.8 % (42.2-75.2); PLATELET COUNT (AUTO) 220 K/uL (140-450); RED BLOOD CELL COUNT(AUTO) 3.97 MIL/uL (4.20-6.10); RED CELL DISTRIBUTION WIDTH 16.8 % (11.6-13.7); WHITE BLOOD COUNT (AUTO) 10.8 K/uL (4.8-10.8)
--- NOTE | 2018-12-09 07:07 | NUR ---
Endorsed patient to AM shift RN for continuity of care; patient in stable condition.
--- NOTE | 2018-12-09 07:08 | NUR ---
Received report from pm nurse Steve. Pt sitting up in chair at bedside, no signs of distress, no c/o discomfort. Left hand IV intact & asymptomatic. Call light within reach.
[2018-12-09 07:19] LABS: ANION GAP 13.4 (8-16); CARBON DIOXIDE 25.1 mmol/L (21-32); CREATININE 1.4 mg/dL (0.7-1.3); POTASSIUM 3.5 mmol/L (3.5-5.1)
[2018-12-09 08:00] VITALS: BP 138/93
[2018-12-09] MEDS: DOCUSATE SODIUM 100 MG GELCAP PO SCH (08:26)
[2018-12-09] MEDS: FUROSEMIDE 40 MG/4 ML VIAL IVP SCH (08:26)
[2018-12-09] MEDS: PANTOPRAZOLE 40 MG INJ VIAL IVP SCH (08:26)
[2018-12-09] MEDS: ASPIRIN 81 MG TAB.CHEW PO SCH (08:27)
[2018-12-09] MEDS: LISINOPRIL 5 MG TAB PO SCH (08:27)
[2018-12-09] MEDS: SPIRONOLACTONE 50 MG TAB PO SCH (08:27)
[2018-12-09] MEDS: FAMOTIDINE 20 MG TAB PO SCH (08:28)
[2018-12-09] MEDS ORDERED: CARVEDILOL 3.125 MG TAB PO SCH (09:00)
[2018-12-09] MEDS ORDERED: methylPREDNISolone SS 40 MG/ML VIAL IVP SCH (09:00)
[2018-12-09] MEDS ORDERED: SIMETHICONE 80 MG TAB.CHEW PO SCH (11:00)
[2018-12-09] MEDS ORDERED: BISACODYL 10 MG SUPP RC SCH (11:00)
[2018-12-09 12:00] VITALS: BP 105/57
--- NOTE | 2018-12-09 12:00 | NUR ---
RECEIVED REPORT FROM LIBBY SHAH FOR CONTINUITY OF CARE. PATIENT PLAN OF CARE DISCUSSED WITH THE PATIENT . FOR D/C TODAY, VERBALIZED UNDERSTANDING. VITALS TAKEN, NO C/O PAIN.
[2018-12-09] MEDS ORDERED: CARV3.122 PO (13:38)
--- NOTE | 2018-12-09 14:35 | NUR ---
DISCHARGE PATIENT TO HOME WITH D/C INSTRUCTION AND PRESCRIPTION GIVEN AND VERBALIZED UNDERSTANDING. IV AND LABORATORY ANIMAL CARETAKER REMOVED.
== END 2018-12-09 14:35 | disposition home or self-care (01) | DRG 917 ==
LOC: MED 17:27 → MTU 20:09
PROVIDERS: ADMIT General Practice; ATTEND General Practice
DX: T43.621A Poisoning by amphetamines, accidental (unintentional), initial encounter (principal); N17.0 Acute kidney failure with tubular necrosis; J96.21 Acute and chronic respiratory failure with hypoxia; I50.43 Acute on chronic combined systolic (congestive) and diastolic (congestive) heart failure; E87.2 Acidosis; I42.0 Dilated cardiomyopathy; R18.8 Other ascites; I11.0 Hypertensive heart disease with heart failure; F14.10 Cocaine abuse, uncomplicated; F15.10 Other stimulant abuse, uncomplicated; F20.9 Schizophrenia, unspecified; I08.1 Rheumatic disorders of both mitral and tricuspid valves; R74.0 Nonspecific elevation of levels of transaminase and lactic acid dehydrogenase [LDH]; K76.0 Fatty (change of) liver, not elsewhere classified; K40.90 Unilateral inguinal hernia, without obstruction or gangrene, not specified as recurrent; J84.10 Pulmonary fibrosis, unspecified; J44.9 Chronic obstructive pulmonary disease, unspecified; T38.0X5A Adverse effect of glucocorticoids and synthetic analogues, initial encounter; K76.89 Other specified diseases of liver; K76.1 Chronic passive congestion of liver; Z96.649 Presence of unspecified artificial hip joint; Z91.19 Patient's noncompliance with other medical treatment and regimen; Z87.891 Personal history of nicotine dependence; Y92.89 Other specified places as the place of occurrence of the external cause
CPT/HCPCS: 36415; 36600; 71045; 76700; 80048; 80053; 80305; 81001; 82803; 83036; 83605; 83735; 83880; 84100; 84439; 84443; 84484; 85025; 85610; 85730; 87040; 87081; 87086; 93005; 94640; 96361; 96374; 96375; 99285; C9113; J0696; J1644; J1940; J2930; J7030; J7060; J7613; J7620; Q0092

== ENCOUNTER 2018-12-17 19:40 | Inpatient (IN) | payer MEDICARE, OTHER ==
[~2018-12-17] VITALS: Ht 193 cm; Wt 77.1 kg
[~2018-12-17 19:40] MED LIST changes: -ACET-9525 PO; -ATOR20TA40 PO; -L. R1CAP PO; -RANI-745 PO; -SULF-58 PO
[2018-12-17 19:43] VITALS: BP 142/95
--- NOTE | 2018-12-17 19:45 | NUR ---
TO LOBBY A/W BED, AMBULATORY
--- NOTE | 2018-12-17 20:00 | NUR ---
PT AMBULATED TO BED 10 AT THIS TIME.
--- NOTE | 2018-12-17 20:15 | NUR ---
PT PRESENTS TO THE ED W/C/O SOB X 3 DAYS. PT DENIES ANY PRECIPITATING EVENTS. PT NOTED TO HAVE DRY COUGH. RR EVEN/LABORED. PT O2 SAT 98% ON RA. NAD NOTED. HR 145 ON MONITOR, WILL NOTIFY MD. CAP REFILL <3. +CMS. LUNG SOUNDS COARSE BILAT. ABD SOFT AND NON TENDER. WILL CONTINUE TO MONITOR
--- NOTE | 2018-12-17 20:23 | NUR ---
DR. LARIOS MADE AWARE OF HEART RATE AT THIS TIME
--- NOTE | 2018-12-17 20:24 | NUR ---
X-Ray at bedside.
--- NOTE | 2018-12-17 20:29 | NUR ---
Dr. Martinez evaluating patient at bedside.
[2018-12-17] MEDS ORDERED: ALBUTEROL SULFATE/IPRATROPIU 3 ML SOL IH ONE (20:55)
--- NOTE | 2018-12-17 21:30 | NUR ---
PT AMBULATED TO ER BED 1
--- NOTE | 2018-12-17 21:39 | NUR ---
REPORT GIVEN TO JEREMIAH SOUZA AT THIS TIME FOR CONTINUITY OF CARE
[2018-12-17 21:53] LABS: BASOPHILS % (AUTO) 0.2 % (0.0-2.0); HEMATOCRIT 43.6 % (36-52); HEMOGLOBIN 14.2 g/dL (12.0-18.0); LYMPHOCYTES # (AUTO) 0.5 K/uL (2.0-11.5); LYMPHOCYTES % (AUTO) 4.2 % (20.5-51.1); MEAN CORPUSCULAR HEMOGLOBIN 29 pg (27-31); MEAN CORPUSCULAR HGB CONC 32 g/dL (33-37); MEAN CORPUSCULAR VOLUME 90.7 fL (80-94); MONOCYTES # (AUTO) 0.9 K/uL (0.8-1.0); MONOCYTES % (AUTO) 8.1 % (1.7-9.3); NEUTROPHILS # (AUTO) 9.6 K/uL (1.8-7.7); NEUTROPHILS % (AUTO) 87.5 % (42.2-75.2); PLATELET COUNT (AUTO) 326 K/uL (140-450); RED BLOOD CELL COUNT(AUTO) 4.81 MIL/uL (4.20-6.10); RED CELL DISTRIBUTION WIDTH 17.1 % (11.6-13.7); WHITE BLOOD COUNT (AUTO) 10.9 K/uL (4.8-10.8)
[2018-12-17 22:06] LABS: ANION GAP 16.5 (8-16); CARBON DIOXIDE 26.6 mmol/L (21-32); CREATININE 1.6 mg/dL (0.7-1.3); POTASSIUM 5.1 mmol/L (3.5-5.1)
[2018-12-17 22:07] LABS: BARBITURATE, URINE NEG. ng/ml (NEG <=200); BENZODIAZEPINE, URINE NEG. ng/mL (NEG <=200); CANNABINOID, URINE NEG. ng/mL (NEG <=50); COCAINE, URINE NEG. ng/mL (NEG <=300); OPIATE, URINE NEG. ng/mL (NEG <=2000); PHENCYCLIDINE SCREEN,URINE NEG. ng/mL (NEG <=25)
[2018-12-17 22:08] LABS: PROTHROMBIN TIME 12.6 secs (10.8-13.4)
[2018-12-17 22:11] LABS: ALBUMIN 3.9 g/dL (3.4-5.0); TOTAL BILIRUBIN 1.8 mg/dL (0.0-1.0)
--- NOTE | 2018-12-17 22:15 | NUR ---
PT CONTINUES TO REMOVE HIMSELF FROM THE VENTILATOR SPECIALIST AND IS UNCOOPERATIVE WITH NURSING INSTRUCTIONS TO STAY IN GOWN OR ASK FOR HELP WHEN GETTING UP FROM BED. BARREL BRIDGE ASSEMBLER MADE AWARE.
[2018-12-17] MEDS ORDERED: NACL 0.9% 2,500 ML IV ONE (22:20)
[2018-12-17] MEDS ORDERED: PIPERACILLIN/TAZOBACTAM 3.375 GM in DEXTROSE 5% 50 ML IV ONE (22:20)
[2018-12-17 22:25] LABS: APPEARANCE,URINE CLEAR (CLEAR); BILIRUBIN,URINE NEGATIVE (NEGATIVE); BLOOD, URINE 1+ (NEGATIVE); COLOR,URINE YELLOW (YELLOW); LEUKOCYTE ESTERASE ,URINE NEGATIVE (NEGATIVE); NITRITE, URINE NEGATIVE (NEGATIVE); UGLUCOSE NEGATIVE (NEGATIVE)
[2018-12-17] MEDS ORDERED: CLOPIDOGREL 75 MG TAB PO ONE (22:30)
[2018-12-17] MEDS ORDERED: LORazepam 2 MG/ML VIAL IVP ONE (22:30)
[2018-12-17] MEDS ORDERED: PIPERACILLIN/TAZOBACTAM 3.375 GM VIAL IV ONE (22:35)
[2018-12-17 22:39] LABS: WBC,URINE 0-5 /HPF (0-5)
--- NOTE | 2018-12-17 22:45 | NUR ---
PT IS REFUSING IV INSERTION AND IS BECOMING INCREASINGLY AGITATED WITH PATIENT CARE. DR. LARIOS MADE AWARE.
[2018-12-17] MEDS ORDERED: HYDROcodone/APAP 7.5/325 MG 1 TAB PO PRN (23:05)
[2018-12-17] MEDS ORDERED: ACETAMINOPHEN 325 MG TAB PO PRN (23:05)
[2018-12-17] MEDS ORDERED: MORPHINE SULFATE 2 MG/ML SYR IVP PRN (23:05)
[2018-12-17] MEDS ORDERED: DOCUSATE SODIUM 100 MG GELCAP PO PRN (23:05)
[2018-12-17] MEDS ORDERED: ONDANSETRON 4 MG/2 ML VIAL IM/IVP PRN (23:05)
[2018-12-17 23:33] LABS: FREE T4 (FREE THYROXINE) 1.22 ng/dL (0.76-1.46); MAGNESIUM 1.9 mg/dL (1.8-2.4); PHOSPHORUS 3.9 mg/dL (2.5-4.9); THYROID STIMULATING HORMONE 1.57 uIU/mL (0.34-3.74)
[2018-12-17] MEDS ORDERED: MEDICATION REC. PHARMACY CONS. 1 EA MISC MC PRN (23:35)
[2018-12-18] VITALS: BP 136/100
--- NOTE | 2018-12-18 | NUR ---
RECEIVED FROM ER VIA GURNEY, FALL RISK, UNSTEADY GAIT NOTED. PT AWAKE, EASILY AROUSABLE BUT HIGH IN (+ ) METH, PT UNCOOPERATIVE, PT STANDS UP AND AMBULATES EVEN IF TOLD NOT TO. FALL RISK PRECAUTION, BED ALARM.POC DISCUSSED. CALL LIGHT W/IN EASY REACH. PER ER NO ANTIBIOTIC WAS STARTED, ATIVAN GIVEN AT ER ONLY. PER NURSE, PT WAS PULLED OUT BY PATIENT AFTER GIVING ATIVAN.BED PLACED IN LOW POSITION.
--- NOTE | 2018-12-18 00:05 | NUR ---
Patient will be admitted to care of Dr. Montelongo. Admited to Tele. Will go to room 127B. Belongings list completed. Report to LIBBY Cat.
[2018-12-18] MEDS ORDERED: NACL 0.9% 250 ML IV ONE (01:10)
--- NOTE | 2018-12-18 01:15 | NUR ---
INSERTED IV ON THE RIGHT HAND G 22 , COUGHING NOTED W/ PRODUCTIVE COUGH Addendum: 12/18/18 at 0303 by Stephania Coelho RN NON PRODUCTIVE COUGH
[2018-12-18] MEDS: MELATONIN 3 MG TAB PO PRN (01:16)
[2018-12-18] MEDS: NACL 0.9% 1,000 ML IV SCH ×2 (01:17→23:04)
--- NOTE | 2018-12-18 01:20 | NUR ---
GOT A CRITICAL RESULT FROM LAB LACTIC ACID 6.[address] ELKINS INFORMED
[2018-12-18] MEDS: NACL 0.9% 500 ML IV ONE ×2 (01:41→01:52)
--- NOTE | 2018-12-18 01:54 | NUR ---
BOLUS OF IVF DISCONTINUED/ NON ADMINISTERED PER DR. ELKINS. HE WILL CHANGE ORDER TO 20ML/HR NS 1000ML
[2018-12-18] MEDS ORDERED: FUROSEMIDE 40 MG/4 ML VIAL IVP SCH ×2 (02:00→09:00)
[2018-12-18] MEDS ORDERED: LORazepam 2 MG/ML VIAL IVP PRN (02:15)
--- NOTE | 2018-12-18 02:36 | NUR ---
INSERTED LOERA CATH DRAINING YELLOW URINE W/ HEMATURIA-SMALL AMOUNT IN URINE
--- NOTE | 2018-12-18 02:37 | NUR ---
ORDERED IVF RATE OF 40 ML/HR. CHANGED IT TO 40ML/HR
[2018-12-18] MEDS ORDERED: LORazepam 2 MG/ML VIAL IVP SCH (03:00)
[2018-12-18 04:00] VITALS: BP 94/62
[2018-12-18] MEDS ORDERED: NACL 0.9% 1,000 ML IV ONE ×2 (04:45→22:45)
[2018-12-18] MEDS: PIPER/TAZO 3.375GM/D5W PREMIX 50 ML IV SCH ×3 (06:39→20:56)
[2018-12-18] MEDS ORDERED: PIPERACILLIN/TAZOBACTAM 3.375 GM VIAL IV ONE (06:45)
[2018-12-18] MEDS: ALBUTEROL SULFATE/IPRATROPIU 3 ML SOL IH SCH ×3 (07:00→20:15)
--- NOTE | 2018-12-18 07:05 | NUR ---
RECEIVED BEDSIDE REPORT FROM LIBBY MAXWELL. PT STABLE, SLEEPING, BUT EASILY AROUSABLE. NO SIGNS OF DISTRESS NOTED. NO REDNESS, SWELLING, OR INFLAMMATION NOTED ON IV SITE. BED IN LOWEST POSITION, BED ALARM ON. CALL MUSA WITHIN REACH. SAFETY MEASURES IN PLACE. PLAN OF CARE REVIEWED.
[2018-12-18 08:00] VITALS: BP 92/59
[2018-12-18] MEDS ORDERED: CARVEDILOL 3.125 MG TAB PO SCH (08:00)
--- NOTE | 2018-12-18 08:06 | NUR ---
PATIENT HAS BEEN SCREENED AND CATEGORIZED HIGH NUTRITION RISK. PATIENT WILL BE SEEN WITHIN 1-2 DAYS OF ADMISSION. 12/18/18-12/19/[address]
--- NOTE | 2018-12-18 08:08 | NUR ---
SATURATION 85% ON ROOM AIR POST HHN THERAPY PLACED PATIENT ON SUPPLEMENTAL OXYGEN AT 2 LPM VIA [place] KEREN CHRISTENSEN/LIBBY NOTIFIED DR. ROBERTA AVILA AT BEDSIDE AWARE OF ROOM AIR SATURATION DR. YOLY GONZALES TO PLACE OXYGEN ORDER
[2018-12-18 08:10] LABS: BASOPHILS % (AUTO) 0.3 % (0.0-2.0); HEMATOCRIT 36.2 % (36-52); HEMOGLOBIN 12.1 g/dL (12.0-18.0); LYMPHOCYTES # (AUTO) 0.6 K/uL (2.0-11.5); LYMPHOCYTES % (AUTO) 7.8 % (20.5-51.1); MEAN CORPUSCULAR HEMOGLOBIN 30 pg (27-31); MEAN CORPUSCULAR HGB CONC 34 g/dL (33-37); MEAN CORPUSCULAR VOLUME 89.1 fL (80-94); MONOCYTES # (AUTO) 0.6 K/uL (0.8-1.0); MONOCYTES % (AUTO) 8.4 % (1.7-9.3); NEUTROPHILS # (AUTO) 6.3 K/uL (1.8-7.7); NEUTROPHILS % (AUTO) 83.5 % (42.2-75.2); PLATELET COUNT (AUTO) 231 K/uL (140-450); RED BLOOD CELL COUNT(AUTO) 4.06 MIL/uL (4.20-6.10); RED CELL DISTRIBUTION WIDTH 16.6 % (11.6-13.7); WHITE BLOOD COUNT (AUTO) 7.6 K/uL (4.8-10.8)
[2018-12-18 08:18] LABS: ANION GAP 15.3 (8-16); CARBON DIOXIDE 25.2 mmol/L (21-32); CREATININE 1.4 mg/dL (0.7-1.3); POTASSIUM 3.5 mmol/L (3.5-5.1)
[2018-12-18] MEDS: BUDESONIDE 0.5 MG/2 ML NEBU INH SCH ×2 (08:28→20:15)
--- NOTE | 2018-12-18 08:52 | NUR ---
MADE DR YING AWARE OF PT'S BP, WILL CONTINUE TO MONITOR PT.
[2018-12-18] MEDS: LISINOPRIL 5 MG TAB PO SCH (09:00)
[2018-12-18] MEDS: SPIRONOLACTONE 50 MG TAB PO SCH (09:00)
[2018-12-18] MEDS ORDERED: ENOXAPARIN 60 MG/0.6 ML SYR SUBQ SCH (09:00)
[2018-12-18] MEDS ORDERED: HEPARIN PER PHARMACY MC PRN (09:15)
--- NOTE | 2018-12-18 09:30 | NUR ---
PT AT THE BEDSIDE.
[2018-12-18] MEDS ORDERED: NITROGLYCERIN 0.4 MG TAB SL PRN (10:00)
[2018-12-18] MEDS: LACTOBACILLUS RHAMNOSUS GG 1 EACH CAP PO SCH (10:42)
[2018-12-18] MEDS: ASPIRIN 81 MG TAB.CHEW PO SCH (10:43)
[2018-12-18] MEDS: FAMOTIDINE 20 MG TAB PO SCH ×2 (10:43→20:56)
--- NOTE | 2018-12-18 10:55 | NUR ---
ADMINISTERED SCHEDULED MEDICATIONS, PT TOLERATED WELL. HELD BP MEDS, BP 102/[address] YING AWARE. ADMINISTERED HEPARIN BOLUS PER MD ORDER PRIOR TO STARTING HEPARIN DRIP. STARTED HEPARIN DRIP, 10ML/HR INITIAL DOSE PER MD ORDER. WILL CONTINUE TO MONITOR.
[2018-12-18] MEDS: hePARIN / DEXT 5% PREMIX 250 ML IV SCH ×2 (11:00→18:06)
--- NOTE | 2018-12-18 11:20 | NUR ---
URINE CULTURE COLLECTED.
[2018-12-18 11:22] LABS: CHOL/HDL RATIO 3.8 (1-4.5)
[2018-12-18 12:00] VITALS: BP 96/57
--- NOTE | 2018-12-18 12:30 | NUR ---
PT REPOSITIONED, LINENS AND GOWN CHANGED. PT TOLERATED WELL.
--- NOTE | 2018-12-18 14:10 | NUR ---
ADMINISTERED SCHEDULED MEDICATIONS, PT TOLERATED WELL. NO OTHER NEEDS AT THIS TIME.
--- NOTE | 2018-12-18 14:18 | NUR ---
12/18/18 RD INITIAL ASSESSMENT COMPLETED PLEASE REFER TO NUTRITION ASSESSMENT UNDER CARE ACTIVITY FOR ESTIMATED NUTRITIONAL NEEDS. 1. CONTINUE CARDIAC DIET TOLERATED 2. PROVIDE DIET EDUCATION WHEN IT IS APPROPRIATE 3. RD TO FOLLOW-UP 3-5 DAYS, MODERATE RISK DE GOLD, RD
--- NOTE | 2018-12-18 15:40 | NUR ---
HEPARIN DRIP RUNNING, NO SIGNS OF BLEEDING NOTED. PT STABLE, SLEEPING, BUT EASILY AROUSABLE.
[2018-12-18 16:00] VITALS: BP 111/83
[2018-12-18] MEDS: FUROSEMIDE 40 MG/4 ML VIAL IVP SCH (17:00)
--- NOTE | 2018-12-18 17:53 | NUR ---
LASIX NOT GIVEN PER DR GALARZA'S ORDER FOR BP 111/83. WILL CONTINUE TO MONITOR.
--- NOTE | 2018-12-18 18:06 | NUR ---
ADMINISTERED PRN TYLENOL FOR TEMP 100.7. HEPARIN DRIP RUNNING AT 8.4 ML/HR PER MD ORDER FOR PTT 76.6.
--- NOTE | 2018-12-18 19:15 | NUR ---
ENDORSED PT TO LIBBY DUMONT FOR CONTINUITY OF CARE. PT STABLE.
--- NOTE | 2018-12-18 19:20 | NUR ---
RECEIVED REPORT FROM DAY SHIFT NURSE. PT SLEEPING. NO S/S OF PAIN. NO S/S OF SOB. ON O2 AT 2L/MIN VIA NC. IV TO LEFT HAND #22G, NS AT 40 ML/HR INFUSING WELL. IV TO RIGHT FA #22G, HEPARIN DRIP AT 9.4 ML/HR. LOERA CATH IN PLACE DRAINING DARK BROWN URINE. SKIN INTACT. SAFETY PRECAUTION IN PLACE. CALL LIGHT WITHIN REACH.
[2018-12-18 20:00] VITALS: BP 122/59
--- NOTE | 2018-12-18 20:35 | NUR ---
DR. ELKINS MADE AWARE OF PT'S DARK BROWN URINE. CAME IN TO CHECK PT AND URINE IN THE LOERA CATH, ORDERED TO STOP THE HEPARIN DRIP.
[2018-12-18] MEDS: ATORVASTATIN 20 MG TAB PO SCH (20:56)
[2018-12-18] MEDS: QUEtiapine FUMARATE 25 MG TAB PO SCH (20:56)
--- NOTE | 2018-12-18 22:40 | NUR ---
SIGN MAINTENANCE CAME FOR US OF ABDOMEN. PT WAS DROWSY. PER US TECH, HE WILL TALK TO DR. ELKINS, SHE WILL DO THE ULTRASOUND TOMORROW MORNING.
--- NOTE | 2018-12-18 22:45 | NUR ---
PT DROWSY. V'S TAKEN BP 84/52, HR 107, O2 96%, TEMP 98.2. PT AROUSABLE. DR. ELKINS MADE AWARE OF PT'S LOW BP.
[2018-12-18] MEDS ORDERED: NACL 0.9% 500 ML IV ONE (22:50)
--- NOTE | 2018-12-18 22:50 | NUR ---
DR. ELKINS CAME IN TO CHECK PT. PER MD, HE WILL ORDER NS BOLUS FOR PT'S LOW BP.
--- NOTE | 2018-12-18 23:55 | NUR ---
NS BOLUS DONE. V/S CHECKED BP 92/52, HR 116, O2 SAT 99% ON O2 AT 2L/MIN VIA NC, TEMP 97.8. DR. ELKINS MADE AWARE. NO NEW ORDER AT THIS TIME.
[2018-12-19] VITALS: BP 92/52
--- NOTE | 2018-12-19 01:40 | NUR ---
PT LYING IN BED, AWAKE, ALERT AND ORIENTED. DENIES PAIN. DARK RED URINE IN THE LOERA CATH NOTED.
--- NOTE | 2018-12-19 03:45 | NUR ---
PT SLEEPING BUT AROUSABLE. NO S/S OF RESP DISTRESS. NO S/S OF PAIN. PT STILL HAS BLOOD IN THE URINE.
[2018-12-19 04:00] VITALS: BP 95/63
[2018-12-19] MEDS: PIPER/TAZO 3.375GM/D5W PREMIX 50 ML IV SCH ×3 (04:31→20:52)
--- NOTE | 2018-12-19 05:30 | NUR ---
PT WAS CLEANSED AND CHANGED. NO S/S OF RESP DISTRESS. PT KEPT DRY AND COMFORTABLE.
[2018-12-19 06:42] LABS: BASOPHILS % (AUTO) 0.4 % (0.0-2.0); HEMATOCRIT 35.6 % (36-52); HEMOGLOBIN 11.7 g/dL (12.0-18.0); LYMPHOCYTES # (AUTO) 0.9 K/uL (2.0-11.5); LYMPHOCYTES % (AUTO) 9.4 % (20.5-51.1); MEAN CORPUSCULAR HEMOGLOBIN 30 pg (27-31); MEAN CORPUSCULAR HGB CONC 33 g/dL (33-37); MEAN CORPUSCULAR VOLUME 90.3 fL (80-94); MONOCYTES # (AUTO) 0.5 K/uL (0.8-1.0); MONOCYTES % (AUTO) 5.2 % (1.7-9.3); NEUTROPHILS # (AUTO) 7.9 K/uL (1.8-7.7); PLATELET COUNT (AUTO) 206 K/uL (140-450); RED BLOOD CELL COUNT(AUTO) 3.94 MIL/uL (4.20-6.10); RED CELL DISTRIBUTION WIDTH 16.9 % (11.6-13.7); WHITE BLOOD COUNT (AUTO) 9.3 K/uL (4.8-10.8)
[2018-12-19 06:45] LABS: ANION GAP 12.1 (8-16); CARBON DIOXIDE 23.9 mmol/L (21-32); CREATININE 1.2 mg/dL (0.7-1.3)
[2018-12-19 06:50] LABS: MAGNESIUM 2.1 mg/dL (1.8-2.4); PHOSPHORUS 3.2 mg/dL (2.5-4.9)
--- NOTE | 2018-12-19 07:24 | NUR ---
RECEIVED BEDSIDE REPORT FROM LIBBY DUMONT. PT STABLE, AWAKE, ALERT AND ORIENTED X3. NO SIGNS OF DISTRESS NOTED. DENIES PAIN OR SOB. ON 2L O2 VIA NC. NO REDNESS, SWELLING, OR INFLAMMATION NOTED ON IV SITE. NO ACTIVE BLEEDING NOTED. BED IN LOWEST POSITION, BED ALARM ON. CALL MUSA WITHIN REACH. SAFETY MEASURES IN PLACE. PLAN OF CARE REVIEWED.
--- NOTE | 2018-12-19 07:25 | NUR ---
ENDORSED PT TO DAY SHIFT NURSE. PT IN STABLE CONDITION.
[2018-12-19] MEDS: BUDESONIDE 0.5 MG/2 ML NEBU INH SCH ×2 (07:47→19:26)
[2018-12-19] MEDS: ALBUTEROL SULFATE/IPRATROPIU 3 ML SOL IH SCH ×3 (07:47→19:26)
[2018-12-19 08:00] VITALS: BP 95/81
[2018-12-19 08:27] LABS: FOLIC ACID > 20.00 ng/mL (>3.0)
[2018-12-19] MEDS: LISINOPRIL 5 MG TAB PO SCH (09:00)
[2018-12-19] MEDS: SPIRONOLACTONE 50 MG TAB PO SCH (09:00)
[2018-12-19] MEDS: FUROSEMIDE 40 MG/4 ML VIAL IVP SCH ×2 (09:00→16:40)
--- NOTE | 2018-12-19 09:10 | NUR ---
PT AT THE BEDSIDE. LINENS AND GOWN CHANGED.
[2018-12-19] MEDS: FAMOTIDINE 20 MG TAB PO SCH ×2 (10:02→20:53)
[2018-12-19] MEDS: LACTOBACILLUS RHAMNOSUS GG 1 EACH CAP PO SCH (10:02)
[2018-12-19] MEDS: ASPIRIN 81 MG TAB.CHEW PO SCH (10:02)
--- NOTE | 2018-12-19 10:05 | NUR ---
ADMINISTERED OTHER SCHEDULED MEDICATIONS, HELD SCHEDULED BP MEDS FOR BP 95/81. PT TOLERATED WELL.
--- NOTE | 2018-12-19 11:30 | NUR ---
FAXED MD REQUEST TO [facility] FOR SHORT TERM SNF PLACEMENT , SADI GASCA FROM [facility] [phone] CALLED BACK AND REQUESTED PT EVAL TO BE FAXED TO HER AND I FAXED TO [phone]. I FAXED INQUIRIES TO [facility] AND [facility] (BOTH CONTRACTED WITH [facility]). I CALLED AND SPOKE WITH JACQUELIN FROM [facility] , HE STATED HE WILL REVIEW INFORMATION AND CALL ME BACK. I ALSO CALLED AND SPOKE WITH GEREMIAS FROM [facility] , SHE WILL ALSO REVIEW INFORMATION AND CALL ME BACK.
[2018-12-19 12:00] VITALS: BP 102/69
--- NOTE | 2018-12-19 12:20 | NUR ---
PT STABLE, EATING LUNCH. NO OTHER NEEDS AT THIS TIME.
--- NOTE | 2018-12-19 12:21 | NUR ---
CALLED [facility] AND SPOKE WITH MAYDA FOR FOLLOW UP ,PER MAYDA MARIEE THE DON WILL COME TO SEE THE PATIENT.
--- NOTE | 2018-12-19 13:58 | NUR ---
ADMINISTERED SCHEDULED MEDICATIONS, PT TOLERATED WELL. NO OTHER NEEDS AT THIS TIME.
[2018-12-19] MEDS: NACL 0.9% 1,000 ML IV SCH (13:59)
--- NOTE | 2018-12-19 14:11 | NUR ---
Siebel Administrator Note: Savana from [facility] is here to evaluate patient. I called and spoke with director private music therapy agency (NINI) Vicky at [facility] , they don't have any beds available at this time.
--- NOTE | 2018-12-19 14:30 | NUR ---
MADE DR YING AWARE OF PATIENT'S URINE COLOR AND CHARACTERISTICS. TO SEE PT.
--- NOTE | 2018-12-19 15:10 | NUR ---
DR YANG AT BEDSIDE.
--- NOTE | 2018-12-19 15:17 | NUR ---
Button Breaker Operator Note: Per Savana from [facility] , they cannot accept patient. I faxed inquiry to [facility]. Per Hellen from [facility] , they cannot accept patient because they cannot accommodate him with Q8 abx ivs.
--- NOTE | 2018-12-19 15:32 | NUR ---
Marketing Research Intern Note: Anshul Roe from [facility] , they aren't accepting patients with Julio coverage at this time. I informed Dr. Lee there is no accepting snf at this time.
[2018-12-19 16:00] VITALS: BP 109/77
--- NOTE | 2018-12-19 16:20 | NUR ---
VITAL SIGNS TAKEN, PT STABLE. PT SLEEPING BUT EASILY AROUSABLE. NO SIGNS OF DISTRESS NOTED.
--- NOTE | 2018-12-19 16:41 | NUR ---
SCHEDULED LASIX NOT GIVEN FOR BP 109/77.
--- NOTE | 2018-12-19 18:05 | NUR ---
PT STABLE, EATING DINNER AND WATCHING TV. NO OTHER NEEDS AT THIS TIME.
--- NOTE | 2018-12-19 19:10 | NUR ---
ENDORSED PT TO LIBBY MARLOW FOR CONTINUITY OF CARE. PT STABLE.
--- NOTE | 2018-12-19 19:20 | NUR ---
RECEIVED ENDORSEMENT FROM KEREN CHRISTENSEN RN DAYSHIFT NURSE AT BEDSIDE FOR CONTINUITY OF CARE, PT IN STABLE CONDITION.
--- NOTE | 2018-12-19 19:43 | NUR ---
RECEIVED PATIENT ON ROOM AIR, PULSE OX SAT 96%. SCHEDULED BREATHING TREATMENTS ADMINISTERED. TOLERATED TREATMENTS WELL, NO ADVERSE SIDE EFFECTS. ORAL RINSE DONE POST TX. NO RESPIRATORY DISTRESS NOTED AT THIS TIME. WILL CONTINUE TO MONITOR.
--- NOTE | 2018-12-19 19:45 | NUR ---
RT AT BEDSIDE FOR 8PM NEBULIZER TREATMENT.
[2018-12-19 20:00] VITALS: BP 111/64
--- NOTE | 2018-12-19 20:00 | NUR ---
JACI WAS AT BEDSIDE CONSULTING WITH PT. PT FOOD AT BEDSIDE AND REQUEST THAT FOOD BE TAKEN TO HIS WHIM HE SAID IS OUT IN PARKING LOT IN [employer]. PT WANTED TO TAKE FOOD TO HIMSELF, BUT WAS REMINDED THAT HE IS ON FALLS RISKS AND THAT IT IS TOO DANGEROUS FOR HIM. SECURITY WAS CALLED AND THEY WERE WILLING TO BRING THE FOOD OUT TO HIS . PT WAS ALSO ASSISTED TO TOILET AND BACK. HE WAS STANDBY ASSISTANCE WITH SOME UNSTEADINESS IN HIS WALK. PT HAS LOERA CATHETER INTACT AND DRAINING ABOUT 100MLDS OF DARK MINO WITH SOME BLOODY DRAINAGE. V/S FOLLOWS T 98.1 P 120 R 20 B/P 02 98% ON ROOM AIR.
[2018-12-19] MEDS: ATORVASTATIN 20 MG TAB PO SCH (20:53)
[2018-12-19] MEDS: QUEtiapine FUMARATE 25 MG TAB PO SCH (20:55)
[2018-12-19] MEDS: guaiFENesin DM 200/20 MG-10 ML 10 ML UDC PO PRN (21:31)
[2018-12-19] MEDS: MELATONIN 3 MG TAB PO PRN (21:34)
--- NOTE | 2018-12-19 21:40 | NUR ---
PT IN BED WITH ALL FALLS PRECAUTIONS IN PLACE.PT GIVEN ZOSYN ORDERED, WELL LIPITOR, AND PEPCID. PT DECLINED ORDERED SEROQUEL RISKS AND BENEFITS EXPLAINED AND PT CONTINUED TO DECLINE MEDICATION. HEPARIN IM SHOT HELD DUE TO PT HAVING BLOODY URINE , PLATELETS AT 131. PT ALSO C/O OF SOB AND WAS PLACED ON 3 LITERS 02 WHICH WENT UP TO 100%. PT ALSO GIVEN NORCO FOR C/O OF MODERATE CHEST PAIN WELL ATIVAN FOR ANXIETY, MELATONIN FOR ASSISTANCE WITH SLEEPING AND ROBITUSSIN FOR COUGHING. DR. ELKINS MADE AWARE OF PT COMPLAINTS, SOB AND THE PRN S GIVEN. WILL CONTINUE TO MONITOR PT FOR PAIN RELIEF, SOB , WELL INSOMNIA AND RELIEF OF COUGHING.
--- NOTE | 2018-12-19 22:30 | NUR ---
PT IN BED RELAXING NO S/S OF PAIN OR DISTRESS NOTED. PT SAYS HE FEELS BETTER.
[2018-12-19] MEDS: ALBUTEROL SULFATE/IPRATROPIU 3 ML SOL IH PRN (23:42)
--- NOTE | 2018-12-19 23:45 | NUR ---
RT AT BEDSIDE GIVING NEBULIZER TREATMENT. RT DOWNGRADED 02 TO 2 LITERS AND HE IS STATING AT 100%.
[2018-12-20] VITALS: BP 106/66
--- NOTE | 2018-12-20 00:10 | NUR ---
PT IN BED 02 ON 2 LITERS VIA N/C. PT DENIES PAIN AT THIS TIME. V/S FOLLOWS T 97.5 P 121 R 20 B/P 106/66 02 98% ON 2 LITERS VIA N/C. PT NOTED WITH COARSE BREATH SOUNDS UPON ACCUSATION. HOB UP 45%.NO C/O OF PAIN OR DISTRESS NOTED.
--- NOTE | 2018-12-20 01:31 | NUR ---
DELIMER'S IN ROOM TURNING AND REPOSITIONING PT.
--- NOTE | 2018-12-20 03:00 | NUR ---
PT IN BED SLEEPING NO S/S OF PAIN OR DISTRESS NOTED.
[2018-12-20 04:00] VITALS: BP 98/79
--- NOTE | 2018-12-20 05:00 | NUR ---
PT REQUESTING SOMETHING TO DRINK. PT WANTED OJ. PT REMINDED THAT HE IS ON FLUID RESTRICTION AND THAT JUICE WILL ONLY MAKE HIM MORE THIRSTY. PT GIVEN 120MLS OF WATER. PT GIVEN ZOSYN AND IT WAS HUNG ORDERED. V/S FOLLOWS T 98.6 PO 84 R 18 B/P 147/88 02 98% WITH 2 LITERS VIA N/C. PT CONTINUED TO REQUEST OJ. PT REMINDED THAT HE IS ON FLUID RESTRICTION. BACON DE RINDER BROUGHT PT 2 JUICES. PT UNDERSTANDS THAT HE IS ON FLUID RESTRICTION, PT DOESNT CARE TO BE COMMENDED PATIENT AT BEDSIDE TO BRIDGE GAME DIRECTOR FOR CONTINUITY OF CARE. PATIENT IS IN A STABLE CONDITION. COMPLIlENT. PT ALSO TOOK OF N/C AND IS BREATHING ROOM AIR.
[2018-12-20] MEDS: PIPER/TAZO 3.375GM/D5W PREMIX 50 ML IV SCH ×3 (05:08→20:12)
--- NOTE | 2018-12-20 05:15 | NUR ---
KATHRYN HUNG ORDERED.
--- NOTE | 2018-12-20 07:10 | NUR ---
RECEIVED BEDSIDE REPORT FROM LIBBY MARLOW. PT STABLE, AWAKE, AND ALERT AND ORIENTED X3. NO SIGNS OF DISTRESS NOTED. NO REDNESS, SWELLING, OR INFLAMMATION NOTED ON IV SITE. DENIES PAIN OR SOB. CALL MUSA WITHIN REACH. BED IN LOWEST POSITION, BED ALARM ON. SAFETY MEASURES IN PLACE. PLAN OF CARE REVIEWED.
--- NOTE | 2018-12-20 07:10 | NUR ---
RECEIVED REPORT FROM KEREN CHRISTENSEN RN AT BEDSIDE FOR CONTINUITY OF CARE, PT IN STABLE CONDITION.
[2018-12-20] MEDS: ALBUTEROL SULFATE/IPRATROPIU 3 ML SOL IH SCH ×3 (07:26→19:01)
[2018-12-20] MEDS: BUDESONIDE 0.5 MG/2 ML NEBU INH SCH ×2 (07:36→19:01)
[2018-12-20 08:00] VITALS: BP 106/77
--- NOTE | 2018-12-20 08:02 | NUR ---
PT AMBULATED TO THE BATHROOM WITH ASSIST.
[2018-12-20 08:05] LABS: BASOPHILS % (AUTO) 0.3 % (0.0-2.0); EOSINOPHILS % (AUTO) 0.3 % (0.0-4.0); HEMATOCRIT 35.8 % (36-52); HEMOGLOBIN 11.6 g/dL (12.0-18.0); LYMPHOCYTES # (AUTO) 1.4 K/uL (2.0-11.5); MEAN CORPUSCULAR HEMOGLOBIN 29 pg (27-31); MEAN CORPUSCULAR HGB CONC 32 g/dL (33-37); MEAN CORPUSCULAR VOLUME 90.6 fL (80-94); MONOCYTES # (AUTO) 0.6 K/uL (0.8-1.0); MONOCYTES % (AUTO) 8.6 % (1.7-9.3); NEUTROPHILS # (AUTO) 5.5 K/uL (1.8-7.7); NEUTROPHILS % (AUTO) 72.8 % (42.2-75.2); PLATELET COUNT (AUTO) 210 K/uL (140-450); RED BLOOD CELL COUNT(AUTO) 3.95 MIL/uL (4.20-6.10); WHITE BLOOD COUNT (AUTO) 7.5 K/uL (4.8-10.8)
[2018-12-20 08:18] LABS: ANION GAP 13.9 (8-16); CARBON DIOXIDE 23.4 mmol/L (21-32); CREATININE 1.1 mg/dL (0.7-1.3); POTASSIUM 4.3 mmol/L (3.5-5.1)
[2018-12-20 08:45] LABS: PHOSPHORUS 2.5 mg/dL (2.5-4.9)
[2018-12-20] MEDS: LISINOPRIL 5 MG TAB PO SCH (09:00)
[2018-12-20] MEDS: FUROSEMIDE 40 MG/4 ML VIAL IVP SCH ×2 (09:00→17:00)
[2018-12-20] MEDS: SPIRONOLACTONE 50 MG TAB PO SCH (09:00)
[2018-12-20] MEDS: LACTOBACILLUS RHAMNOSUS GG 1 EACH CAP PO SCH (10:35)
[2018-12-20] MEDS: guaiFENesin DM 200/20 MG-10 ML 10 ML UDC PO PRN (10:36)
[2018-12-20] MEDS: FAMOTIDINE 20 MG TAB PO SCH ×2 (10:36→20:13)
[2018-12-20] MEDS: ASPIRIN 81 MG TAB.CHEW PO SCH (10:36)
--- NOTE | 2018-12-20 10:40 | NUR ---
HELD SCHEDULED BP MEDICATIONS FOR BP 106/77 AND HELD SCHEDULED HEPARIN DUE TO TINGE OF BLOOD IN THE URINE IN THE LOERA CATHETER AND PTT 36.3, DR MUHAMMAD AWARE. ADMINISTERED OTHER SCHEDULED MEDICATIONS AND PRN ROBITUSSIN FOR COUGHING. PT TOLERATED WELL. NO OTHER NEEDS AT THIS TIME.
[2018-12-20 12:00] VITALS: BP 109/73
--- NOTE | 2018-12-20 12:10 | NUR ---
PT AMBULATED TO THE BATHROOM WITH ASSIST.
[2018-12-20] MEDS: ALBUTEROL SULFATE/IPRATROPIU 3 ML SOL IH PRN (12:53)
--- NOTE | 2018-12-20 13:17 | NUR ---
ADMINISTERED SCHEDULED MEDICATIONS, PT TOLERATED WELL. NO OTHER NEEDS AT THIS TIME.
--- NOTE | 2018-12-20 13:40 | NUR ---
D/C LOERA CATHETER, PT TOLERATED WELL. NO BLEEDING NOTED.
[2018-12-20 16:00] VITALS: BP 117/84
--- NOTE | 2018-12-20 17:45 | NUR ---
PT AMBULATED TO THE BATHROOM WITH ASSIST.
--- NOTE | 2018-12-20 18:00 | NUR ---
SCHEDULED LASIX NOT GIVEN FOR BP 93/67.
--- NOTE | 2018-12-20 19:10 | NUR ---
ENDORSED PT TO RN ALIS FOR CONTINUITY OF CARE. PT STABLE.
--- NOTE | 2018-12-20 19:11 | NUR ---
RECEIVED PT IN STABLE CONDITION FROM AM NURSE. PT IS AWAKE,ALERT AND ORIENTED X4. ON TELE MONITOR BED. WITH SOB ON EXERTION, RT TO COME FOR TREATMENT. ENCOURAGED PT TO PUT O2 2L/NC. HAS IVF INFUSING WELL ON THE RT FA G#22. CLEAR AND PATENT. SKIN INTACT. BED ON LOWEST POSITION. SIDE RAILS UP X2. CALL LIGHT AND URINAL AND OTHER PERSONAL BELONGINGS PLACED WITHIN EASY REACH. PLAN OF CARE DISCUSSED AND VERBALIZED UNDERSTANDING. WILL CONTINUE TO MONITOR.
[2018-12-20 20:00] VITALS: BP 118/83
[2018-12-20] MEDS: QUEtiapine FUMARATE 25 MG TAB PO SCH (20:13)
--- NOTE | 2018-12-20 20:30 | NUR ---
PT TOOK ALL HIS NIGHT MEDS . HEPARIN NOT GIVEN. PER AM NURSE PT STILL HAS SOME SCANTY BLOOD PRESENT ON THE URINE TODAY. WILL CONTINUE TO MONITOR.
--- NOTE | 2018-12-20 21:30 | NUR ---
PT AWAKE. WITH URINE ON THE URINAL. NO BLOOD NOTED BUT URINE IS DARK MINO COLORED. WILL CONTINUE TO MONITOR.
--- NOTE | 2018-12-20 22:30 | NUR ---
GABRIELLE ASTORGA. PT SLEEPING . NO DISTRESS NOTED. WILL CONTINUE TO MONITOR.
[2018-12-21 00:05] VITALS: BP 102/67
--- NOTE | 2018-12-21 00:05 | NUR ---
PT AWAKE, VITAL SIGNS STABLE BUT ALWAYS REMOVED O2 N/C. O2 SAT ONLY 89. SO O2 2L/NC PUT BACK ON , O2 SAT WENT UP TO 94%. WILL CONTINUE TO MONITOR.
[2018-12-21] MEDS: guaiFENesin DM 200/20 MG-10 ML 10 ML UDC PO PRN ×2 (01:43→15:43)
--- NOTE | 2018-12-21 01:43 | NUR ---
PT AWAKE, HAVING DRY COUGH. TRYING TO COUGH OUT PHLEGM. SO HE SAID HE CAN HAVE THE ROBITUSSIN. GIVEN TO HIM BUT STILL WITH SOB. . PAGED RT AND CAME. WILL ASSESSED PT.
[2018-12-21] MEDS ORDERED: NACL 0.9% 1,000 ML IV SCH (01:50)
--- NOTE | 2018-12-21 01:51 | NUR ---
DR. GLYNN ALSO MADE AWARE ABOUT THE SCANTY URINE OUTPUT . SHE SAID WILL ORDER IVF.
--- NOTE | 2018-12-21 02:10 | NUR ---
Called to bedside to assess pt, pt breathing labored, asked to be placed on bipap, breath sounds with diminished rales bilaterally, placed on bipap, tolerating well, spo2 100% Melia RN aware, will cont to monitor.
[2018-12-21] MEDS ORDERED: FUROSEMIDE 20 MG/2 ML VIAL IVP SCH (03:00)
--- NOTE | 2018-12-21 03:00 | NUR ---
PT IS ASLEEP. NO SOB NOTED WITH O22L/NC. WILL CONTINUE TO MONITOR.
[2018-12-21 03:30] VITALS: BP 130/85
[2018-12-21] MEDS: PIPER/TAZO 3.375GM/D5W PREMIX 50 ML IV SCH ×2 (04:38→13:41)
--- NOTE | 2018-12-21 05:00 | NUR ---
GOT UP TO THE BATHROOM. NO BM NOTED. BACK TO BED. O2 2L/NC ON . WILL CONTINUE TO MONITOR.
--- NOTE | 2018-12-21 06:05 | NUR ---
PT IS ASLEEP AT THIS TIME. NO SOB NOTED.
[2018-12-21] MEDS ORDERED: NACL 0.9% 250 ML IV ONE (06:35)
[2018-12-21] MEDS: ALBUTEROL SULFATE/IPRATROPIU 3 ML SOL IH SCH ×2 (06:37→13:22)
[2018-12-21] MEDS: BUDESONIDE 0.5 MG/2 ML NEBU INH SCH (06:47)
--- NOTE | 2018-12-21 07:18 | NUR ---
WILL ENDORSE PT IN STABLE CONDITION TO AM NURSE FOR CONTINUITY OF CARE.
[2018-12-21 08:00] VITALS: BP 114/82
--- NOTE | 2018-12-21 08:00 | NUR ---
PATIENT WAS AWAKE, ALERT. RESPIRATION EVEN, UNLABOR ON 2L NC. PATIENT WAS INSTRUCTED TO KEEP NC ON AT ALL TIME TO PREVENT SOB. PATIENT VERBALIZED UNDERSTANDING. SKIN DRY AND WARM. IV PATENT AND INTACT. DENIED PAIN AT THIS TIME. PLAN OF CARE WAS DISCUSSED WITH PATIENT. BED AT LOW POSITION, SIDE RAILS UP. CALL LIGHT WITHIN REACH.
--- NOTE | 2018-12-21 09:00 | NUR ---
IV ON RIGHT HAND WAS REMOVED DUE TO LEAKAGE, CATHETER INTACT, NO ACTIVE BLEEDING SEEN. NEW IV WAS INSERTED ON LEFT FOREARM 22G. PATIENT TOLERATED WELL
[2018-12-21] MEDS: FUROSEMIDE 40 MG/4 ML VIAL IVP SCH (09:14)
[2018-12-21] MEDS: ASPIRIN 81 MG TAB.CHEW PO SCH (09:19)
[2018-12-21] MEDS: SPIRONOLACTONE 50 MG TAB PO SCH (09:19)
[2018-12-21] MEDS: LISINOPRIL 5 MG TAB PO SCH (09:19)
[2018-12-21] MEDS: LACTOBACILLUS RHAMNOSUS GG 1 EACH CAP PO SCH (09:20)
[2018-12-21] MEDS: FAMOTIDINE 20 MG TAB PO SCH (09:20)
[2018-12-21 10:11] LABS: BASOPHILS % (AUTO) 0.5 % (0.0-2.0); EOSINOPHILS % (AUTO) 0.1 % (0.0-4.0); HEMATOCRIT 35.8 % (36-52); HEMOGLOBIN 11.5 g/dL (12.0-18.0); MEAN CORPUSCULAR HEMOGLOBIN 29 pg (27-31); MEAN CORPUSCULAR HGB CONC 32 g/dL (33-37); MEAN CORPUSCULAR VOLUME 90.1 fL (80-94); MONOCYTES # (AUTO) 0.4 K/uL (0.8-1.0); MONOCYTES % (AUTO) 7.1 % (1.7-9.3); NEUTROPHILS # (AUTO) 3.9 K/uL (1.8-7.7); NEUTROPHILS % (AUTO) 73.9 % (42.2-75.2); PLATELET COUNT (AUTO) 212 K/uL (140-450); RED BLOOD CELL COUNT(AUTO) 3.97 MIL/uL (4.20-6.10); RED CELL DISTRIBUTION WIDTH 16.7 % (11.6-13.7); WHITE BLOOD COUNT (AUTO) 5.3 K/uL (4.8-10.8)
[2018-12-21] MEDS ORDERED: FURO40TA9 PO (10:26)
[2018-12-21 10:32] LABS: ANION GAP 14.1 (8-16); CARBON DIOXIDE 24.9 mmol/L (21-32); CREATININE 1.3 mg/dL (0.7-1.3)
[2018-12-21 10:37] LABS: LYMPHOCYTES % (AUTO) 18.4 % (20.5-51.1)
--- NOTE | 2018-12-21 11:23 | NUR ---
PATIENT TOOK OFF INDIRECT FIRE INFANTRYMAN AND OXYGEN, PATIENT WAS EXPLAINED THE NEED OF INDIRECT FIRE INFANTRYMAN AND OXYGEN. PATIENT VERBALIZED UNDERSTANDING AND STATED THAT HE WANTS TO WASH UP FIRST. SPONGE BATH SUPPLIES WERE GIVEN TO PATIENT. BED LINEN WAS CHANGED
[2018-12-21 12:00] VITALS: BP 115/82
--- NOTE | 2018-12-21 12:00 | NUR ---
PATIENT WAS AWAKE, ALERT. RESPIRATION EVEN, UNLABOR ON ROOM AIR. POCKET ASSEMBLER WAS PLACED. DENIED PAIN, SOB AT THIS TIME. NO DISTRESS NOTED
[2018-12-21] MEDS ORDERED: CARVEDILOL 3.125 MG TAB PO SCH ×2 (12:10→21:00)
--- NOTE | 2018-12-21 14:00 | NUR ---
PATIENT WAS AWAKE, ALERT, PULLED OFF ROCK [place]ON APPRENTICE AND WANTED IV ANTIBIOTIC TO BE STOPPEDS STATED HE WANTED TO LEAVE RIGHT NOW. PATIENT WAS EXPLAINED THAT PATIENT STILL NEEDED TO BE MONITORED. PATIENT REFUSED TO PUT BACK THE ROCK MASON APPRENTICE. WILL NOTIFY
[2018-12-21] MEDS ORDERED: BENZONATATE 100 MG CAPLF PO PRN (14:10)
[2018-12-21] MEDS ORDERED: BENZ-196 PO (14:23)
[2018-12-21 16:00] VITALS: BP 114/82
--- NOTE | 2018-12-21 16:38 | NUR ---
DISCHARGE INSTRUCTION AND PRESCRIPTIONS WERE GIVEN AND EXPLAINED TO PATIENT. PATIENT VERBALIZED UNDERSTANDING. LONG TERM AND DRUG REHAB RESOURCE , AND FOOD WERE PROVIDED TO THE PATIENT AND . IV WAS REMOVED, CATHETER INTACT, NO ACTIVE BLEEDING SEEN. ID BAND WAS REMOVED. ALL BELONGINGS WERE TAKEN WITH THE PATIENT. PATIENT WAS ESCORTED OUT IN WHEELCHAIR BY STAFF. PATIENT IS STABLE AT THIS TIME Addendum: 12/21/18 at 1643 by Suzanne Gaston RN PATIENT SIGNED THE HOMELESS WAIVER. PATIENT VERBALIZED UNDERSTANDING THAT HOME HEALTH SERVICE WILL NOT BE ABLE TO BE PROVIDED AT LONG TERM
[2018-12-22] MEDS ORDERED: FUROSEMIDE 40 MG/4 ML VIAL IVP SCH (09:00)
--- NOTE | 2018-12-22 17:01 | NUR ---
Retail Branch Manager Note: I called and spoke with Ananya from [facility] . She stated they don't accept Julio referrals, unable to accept patient.
--- NOTE | 2018-12-30 16:37 | NUR ---
Oil Expert Note: Late entry 12/22/18: Per patient's brother Oni Hernandez , patient is living with him at his [id number] [place] [address]. He will let patient know home health services will be arranged. Per Elle from [facility] , they will send a nurse to patient's home.
== END 2018-12-21 16:40 | disposition home or self-care (01) | DRG 720 ==
LOC: MED 19:40 → MMU 23:09
PROVIDERS: ADMIT General Practice; ATTEND General Practice
DX: A41.9 Sepsis, unspecified organism (principal); N17.0 Acute kidney failure with tubular necrosis; I21.A1 Myocardial infarction type 2; I50.43 Acute on chronic combined systolic (congestive) and diastolic (congestive) heart failure; I13.0 Hypertensive heart and chronic kidney disease with heart failure and stage 1 through stage 4 chronic kidney disease, or unspecified chronic kidney disease; I27.20 Pulmonary hypertension, unspecified; I42.0 Dilated cardiomyopathy; R65.20 Severe sepsis without septic shock; J44.1 Chronic obstructive pulmonary disease with (acute) exacerbation; F15.10 Other stimulant abuse, uncomplicated; F20.9 Schizophrenia, unspecified; N18.9 Chronic kidney disease, unspecified; Z96.642 Presence of left artificial hip joint; D64.9 Anemia, unspecified; Z79.82 Long term (current) use of aspirin; Z79.899 Other long term (current) drug therapy; Z59.0 Homelessness; Z82.3 Family history of stroke; Z87.891 Personal history of nicotine dependence
CPT/HCPCS: 36415; 71045; 76700; 80048; 80053; 80305; 81001; 82140; 82306; 82607; 82746; 83036; 83605; 83690; 83735; 83880; 84100; 84439; 84443; 84484; 85025; 85610; 85730; 87040; 87081; 87086; 93005; 93970; 94640; 94660; 96372; 97110; 97116; 97161-GP; 97530; 99285; J1644; J1940; J2060; J2543; J7030; J7060; J7620; J7626; Q0092

== ENCOUNTER 2019-01-17 05:51 | Emergency (ER) | payer MEDICARE, OTHER ==
[~2019-01-17] VITALS: Ht 193 cm; Wt 77.1 kg
[~2019-01-17 05:51] MED LIST changes: +BENZ-196 PO
[2019-01-17 06:02] VITALS: BP 130/86
[2019-01-17] MEDS ORDERED: NACL 0.9% 1,000 ML IV ONE (06:10)
--- NOTE | 2019-01-17 06:10 | NUR ---
Pt taken to bed 2.
--- NOTE | 2019-01-17 06:15 | NUR ---
PT BIB SELF C/O PAINFUL URINATION. PT STATES DYSURIA, BURNING, ITCHING, FREQUENCY, DRIPPLING X2 WEEKS. PT STATES 10/10 PAIN; +SUPRAPUBIC TENDERNESS. BREATHING EQUAL AND UNLABORED. PT ACTING APPROPRIATLY, SPEAKING IN CLEAR AND COMPLETE SENTENCES. SAFETY PRECAUTIONS IN PLACE. PMH: COPD, HTN
[2019-01-17] MEDS ORDERED: FUROSEMIDE 40 MG/4 ML VIAL IVP SCH (07:10)
--- NOTE | 2019-01-17 08:07 | NUR ---
Flomax not administered. Pateint could not wait and wanted to leave. Patient discharged with v/s stable. Written and verbal after care instructions given and explained. Patient alert, oriented and verbalized understanding of instructions. All questions addressed prior to discharge. ID band removed. Patient advised to follow up with PMD. Rx of flomax given. Patient educated on indication of medication including possible reaction and side effects. Opportunity to ask questions provided and answered.
[2019-01-17 08:09] VITALS: BP 113/68
[2019-01-17] MEDS ORDERED: TAMSULOSIN 0.4 MG CAP PO SCH (08:30)
== END 2019-01-17 08:04 | disposition home or self-care (01) ==
LOC: MED 05:51
DX: R30.0 Dysuria (principal); R39.198 Other difficulties with micturition; J44.9 Chronic obstructive pulmonary disease, unspecified; I11.0 Hypertensive heart disease with heart failure; I50.9 Heart failure, unspecified; F17.200 Nicotine dependence, unspecified, uncomplicated; Z79.82 Long term (current) use of aspirin; Z79.899 Other long term (current) drug therapy; Z88.8 Allergy status to other drugs, medicaments and biological substances
CPT/HCPCS: 81002; 96374; 99283; J1940; J7030

== ENCOUNTER 2019-01-30 22:44 | Emergency (ER) | payer MEDICARE, OTHER ==
[~2019-01-30] VITALS: Ht 193 cm; Wt 77.1 kg
[2019-01-30 23:05] VITALS: BP 125/68
--- NOTE | 2019-01-30 23:07 | NUR ---
TO LOBBY A/W BED, AMBULATORY
--- NOTE | 2019-01-30 23:25 | NUR ---
DR. BELLE AT BEDSIDE.
--- NOTE | 2019-01-30 23:41 | NUR ---
XRAY AT BEDSIDE.
[2019-01-31] MEDS ORDERED: SODIUM PHOSPHATE 118 ML ENEM RC ONE (00:20)
--- NOTE | 2019-01-31 00:36 | NUR ---
PT UP TO BR AMBULATORY W/STEADY GAIT.
--- NOTE | 2019-01-31 01:40 | NUR ---
Patient discharged with v/s stable. Patient acting appropriatly, states he feels better and had a good bm after recieving enema. Written and verbal after care instructions given and explained. Patient alert, oriented and verbalized understanding of instructions. Ambulatory with steady gait. All questions addressed prior to discharge. ID band removed. Patient advised to follow up with PMD. Rx of MiraLax given. Patient educated on indication of medication including possible reaction and side effects. Opportunity to ask questions provided and answered.
[2019-01-31 02:37] VITALS: BP 118/73
== END 2019-01-31 01:40 | disposition home or self-care (01) ==
LOC: MED 22:44
DX: K59.00 Constipation, unspecified (principal); J44.9 Chronic obstructive pulmonary disease, unspecified; I10 Essential (primary) hypertension; Z79.82 Long term (current) use of aspirin; Z88.8 Allergy status to other drugs, medicaments and biological substances; Z79.899 Other long term (current) drug therapy
CPT/HCPCS: 74022; 99283; 99284

== ENCOUNTER 2019-02-05 00:10 | Emergency (ER) | payer MEDICARE, OTHER ==
[~2019-02-05] VITALS: Ht 193 cm; Wt 77.1 kg
[2019-02-05 00:15] VITALS: BP 114/70
--- NOTE | 2019-02-05 00:17 | NUR ---
TO LOBBY A/W BED , AMBULATORY
--- NOTE | 2019-02-05 01:30 | NUR ---
68 YO M BIB SELF PRESENTS TO ED C/O SOB SINCE LAST NIGHT WELL DIFFICULTY URINATING AND CHEST CONGESTION. PT REPORTS HE RAN OUT OF LASIX AND HAS BEEN WITHOUT RX FOR 1.5 DAYS. PT ALSO STATES HE RAN OUT OF OXYGEN AT HOME. -- PT ALERT, SLIGHTLY AGITATED. COOPERATIVE. ANSWERING QUESTIONS APPROPRIATELY. -- GRUNTING AND INCREASED WOB NOTED UPON EXERTION. CRACKLES HEARD THROUGHOUT. PT HAS WET PRODUCTIVE COUGH. -- MILD PEDAL EDEMA NOTED BILATERALLY. NO PITTING NOTED. PMH-- LEAKY VALVE, CHF, HTN RX-- LASIX 40 MG
[2019-02-05] MEDS ORDERED: FUROSEMIDE 40 MG TAB PO ONE (01:35)
--- NOTE | 2019-02-05 02:30 | NUR ---
Patient appears to be resting comfortably in bed. Vital Signs within normal limits. Respirations even and unlabored.
--- NOTE | 2019-02-05 02:35 | NUR ---
PT REQUESTED FOOD. CALLED HOUSE SUP FOR SANDWICH.
[2019-02-05 03:11] VITALS: BP 109/71
--- NOTE | 2019-02-05 03:11 | NUR ---
Patient discharged with v/s stable. Written and verbal after care instructions given and explained. Patient alert, oriented and verbalized understanding of instructions. Ambulatory with steady gait. All questions addressed prior to discharge. ID band removed. Patient advised to follow up with PMD. Rx of Potassium and Lasix given. Patient educated on indication of medication including possible reaction and side effects. Opportunity to ask questions provided and answered.
== END 2019-02-05 03:11 | disposition home or self-care (01) ==
LOC: MED 00:10
DX: R06.02 Shortness of breath (principal); R09.89 Other specified symptoms and signs involving the circulatory and respiratory systems; R53.1 Weakness; J44.9 Chronic obstructive pulmonary disease, unspecified; I10 Essential (primary) hypertension; F17.210 Nicotine dependence, cigarettes, uncomplicated; Z76.0 Encounter for issue of repeat prescription; Z79.82 Long term (current) use of aspirin; Z79.899 Other long term (current) drug therapy; Z88.8 Allergy status to other drugs, medicaments and biological substances
CPT/HCPCS: 71045; 99283; Q0092

== ENCOUNTER 2019-02-07 21:55 | Inpatient (IN) | payer MEDICARE, OTHER ==
[~2019-02-07] VITALS: Ht 193 cm; Wt 81.6 kg
[2019-02-07 22:00] VITALS: BP 108/74
--- NOTE | 2019-02-07 22:00 | NUR ---
TO BED # 12 VIA WHEELCHAIR
--- NOTE | 2019-02-07 22:00 | NUR ---
68 Y/O MALE PRESENTS TO ED WITH C/O ANXIETY, SOB/DYSPNEA X1 HR. BILAT LUNGS DIMINISHED. PTODUCTIVE COUGH WITH CLEAR SPUTUM. 02SAT 76% AT RA. PLACED ON NC @ 4LPM. ALERT TO NAME, PLACE, TIME, AND EVENT. POSITIONED IN BED WITH HOB ELEVATED. ER MD AWARE. CONTINUE TO MONITOR.
--- NOTE | 2019-02-07 22:14 | NUR ---
Dr. Mendoza evaluating patient at bedside.
[2019-02-07] MEDS ORDERED: ALBUTEROL SULFATE/IPRATROPIU 3 ML SOL IH ONE (22:20)
--- NOTE | 2019-02-07 22:24 | NUR ---
Respiratory Therapist at bedside for respiratory intervention
--- NOTE | 2019-02-07 22:30 | NUR ---
PROVIDED PT WITH FOOD AND JUICE. CONTINUE TO MONITOR.
--- NOTE | 2019-02-07 22:44 | NUR ---
TX GIVEN VIA NEBULIZER. O2 RESUMED AT 4L VIA NC. PT STATES HE FEELS BETTER. WILL MONITOR.
--- NOTE | 2019-02-07 23:00 | NUR ---
PT IN BED RESTING WITH EYES OPEN. NO DISTRESS OF ANY KIND NOTED. NO SOB/DYSPNEA. CONTINUE TO MONITOR.
[2019-02-07] MEDS ORDERED: NACL 0.9% 500 ML IV ONE ×2 (23:20→23:55)
[2019-02-07 23:47] LABS: ALBUMIN 3.4 g/dL (3.4-5.0); ANION GAP 19.5 (8-16); CARBON DIOXIDE 18.6 mmol/L (21-32); CREATININE 1.6 mg/dL (0.7-1.3); POTASSIUM 4.1 mmol/L (3.5-5.1); TOTAL BILIRUBIN 3.1 mg/dL (0.0-1.0)
[2019-02-07 23:53] LABS: BASOPHILS % (AUTO) 0.6 % (0.0-2.0); EOSINOPHILS % (AUTO) 0.3 % (0.0-4.0); HEMATOCRIT 42.4 % (36-52); HEMOGLOBIN 13.7 g/dL (12.0-18.0); LYMPHOCYTES # (AUTO) 1.6 K/uL (2.0-11.5); LYMPHOCYTES % (AUTO) 18.4 % (20.5-51.1); MEAN CORPUSCULAR HEMOGLOBIN 29 pg (27-31); MEAN CORPUSCULAR HGB CONC 32 g/dL (33-37); MEAN CORPUSCULAR VOLUME 90.5 fL (80-94); MONOCYTES # (AUTO) 0.9 K/uL (0.8-1.0); MONOCYTES % (AUTO) 9.6 % (1.7-9.3); NEUTROPHILS # (AUTO) 6.3 K/uL (1.8-7.7); PLATELET COUNT (AUTO) 207 K/uL (140-450); RED BLOOD CELL COUNT(AUTO) 4.68 MIL/uL (4.20-6.10); RED CELL DISTRIBUTION WIDTH 21.3 % (11.6-13.7); WHITE BLOOD COUNT (AUTO) 8.9 K/uL (4.8-10.8)
[2019-02-07 23:59] LABS: NEUTROPHILS % (AUTO) 71.1 % (42.2-75.2)
--- NOTE | 2019-02-08 | NUR ---
PT IN BED RESTING WITH EYES CLOSED. VSS. CONTINUE TO MONITOR.
[2019-02-08] MEDS ORDERED: LORazepam 1 MG TAB PO ONE (00:50)
[2019-02-08] MEDS ORDERED: ZOLPIDEM 5 MG TAB PO PRN (00:55)
[2019-02-08] MEDS ORDERED: ACETAMINOPHEN 325 MG TAB PO PRN (00:55)
[2019-02-08] MEDS ORDERED: MORPHINE SULFATE 2 MG/ML SYR IVP PRN (00:55)
[2019-02-08] MEDS ORDERED: HYDROcodone/APAP 5/325 MG 1 TAB TAB PO PRN (00:55)
[2019-02-08] MEDS ORDERED: DOCUSATE SODIUM 100 MG GELCAP PO PRN (00:55)
[2019-02-08] MEDS ORDERED: ONDANSETRON 4 MG/2 ML VIAL IM/IVP PRN (00:55)
--- NOTE | 2019-02-08 01:00 | NUR ---
PT IN BED RESTING WITH EYES OPEN. C/O ANXIETY. VSS. DR CORNELL NOTIFIED. CONTINUE TO MONITOR.
[2019-02-08] MEDS ORDERED: FUROSEMIDE 40 MG TAB PO SCH ×2 (01:10→10:45)
[2019-02-08] MEDS ORDERED: ALBUTEROL SULFATE/IPRATROPIU 3 ML SOL IH PRN (01:10)
--- NOTE | 2019-02-08 01:30 | NUR ---
PT STATES RELIEF AND NO LONGER C/O ANXIETY AT THIS TIME. CONINUE TO MONITOR.
[2019-02-08 01:45] VITALS: BP 125/81
--- NOTE | 2019-02-08 01:45 | NUR ---
RECEIVED PATIENT, AND REPORT FROM ED NURSE, FOR PATIENT'S CONTINUITY OF CARE. PATIENT IS ALERT, AWAKE, ORIENTED X 4. PATIENT IS ON 2L O2 VIA NASAL CANNULA WITH DIMINISHED BREATH SOUNDS ON BILATERAL LOWER LOBE. HAS RIGHT HAND 20 GA IV SALINE LOCK. AMBULATORY WITH ASSIST. HAS A 1.0 CM X 0.7 CM OPEN SCAB ON RIGHT ANKLE AREA, PICTURE TAKEN AND CHARTED. WET MILLING WHEEL OPERATOR CLEANED FEET PER PATIENT'S REQUEST. PATIENT IS ON NPO EXCEPT MEDS. FALL RISK PRECAUTION INITIATED. DENIES PAIN AT THIS TIME. SIDE RAILS ARE UP, BED IN LOW POSITION, INSTRUCTED PATIENT TO USE CALL LIGHT WHEN NEEDED, AND CALL LIGHT WITHIN REACH. WILL CONTINUE TO MONITOR PATIENT.
--- NOTE | 2019-02-08 01:47 | NUR ---
REPORT GIVEN AND CARE TRANSFERED TO [facility] ROOM 127B. PT TRANSFERED VIA [place] WITH VSS.
--- NOTE | 2019-02-08 02:30 | NUR ---
INFORMED PATIENT REGARDING 24 HR URINE SAMPLE COLLECTION PROCEDURE. PATIENT GIVEN ICE CHIPS AND REMINDED REGARDING NPO STATUS. PATIENT VERBALIZED UNDERSTANDING. DISCARDED 200 ML OF URINE AND COLLECTION STARTED AFTER THIS TIME. WILL CONTINUE TO MONITOR PATIENT.
[2019-02-08] MEDS: NACL 0.9% 1,000 ML IV SCH (02:41)
--- NOTE | 2019-02-08 03:10 | NUR ---
PT SEEN WITH NASAL CANNULA NOT IN PLACE, PUT BACK NASAL CANNULA AND REINFORCE THE IMPORTANCE OF OXYGEN, MONITORED CLOSELY.
[2019-02-08] MEDS ORDERED: FUROSEMIDE 20 MG/2 ML VIAL IVP SCH (03:30)
[2019-02-08 04:00] VITALS: BP 112/81
[2019-02-08] MEDS: LORazepam 2 MG/ML VIAL IM/IVP PRN ×2 (04:14→18:47)
--- NOTE | 2019-02-08 04:21 | NUR ---
PT RESTLESS STATED I WANT TO WALK AND I CANNOT SLEEP, MEDICATED PRN WITH ATIVAN IVP, BED ALARM ON, MONITORED CLOSELY.
--- NOTE | 2019-02-08 04:37 | NUR ---
PT SLEEPING, SEEN WITH NASAL CANNULA NOT IN PLACE, SEVERAL EPISODE THAT PT TOOK OFF NASAL CANNULA, PUT BACK NASAL CANNULA AND REINFORCE TO PT THE NEED FOR OXYGEN AT THIS TIME, PT NOD HIS HEAD AND WENT BACK TO SLEEP, MONITORED CLOSELY.
--- NOTE | 2019-02-08 05:01 | NUR ---
PT SEEN WITH NASAL CANNULA NOT IN PLACE, PT NON-COMPLIANT WITH OXYGEN, DR BALLARD IS ALREADY AWARE, SAT-95% ON ROOM AIR AT THIS TIME, NO SIGNS OF SOB, CONTINUE TO MONITOR CLOSELY.
--- NOTE | 2019-02-08 05:47 | NUR ---
PT SLEEPING, SAT-94-96% ON ROOM AIR, NO RESP DISTRESS NOTED, CONTINUE TO MONITOR CLOSELY.
--- NOTE | 2019-02-08 06:26 | NUR ---
PATIENT HAS BEEN SCREENED AND CATEGORIZED MODERATE NUTRITION RISK. PATIENT WILL BE SEEN WITHIN 3-5 DAYS OF ADMISSION. 02/10/19-02/12/19 JOAQUIN HUTCHINSON MS, RDN
--- NOTE | 2019-02-08 07:20 | NUR ---
PT SLEEPING, NO SIGNS OF DISTRESS, REPORT GIVEN TO RN TEODORA FOR CONTINUITY OF CARE.
--- NOTE | 2019-02-08 07:21 | NUR ---
RECEIVED ENDORSEMENT FROM ANCHORMAN NURSE. PATIENT IS SLEEPING, EASILY AROUSABLE. PATIENT IS AAOX4, SINHALA SPEAKING. PATIENT DENIES PAIN AT THIS TIME. RIGHT HAND 20G IV INTACT AND PATENT. PLAN OF CARE WAS REVIEWED WITH PATIENT. PATIENT VERBALIZED UNDERSTANDING. SAFETY MEASURES IN PLACE, CALL LIGHT WITHIN REACH.
[2019-02-08] MEDS: ALBUTEROL SULFATE/IPRATROPIU 3 ML SOL IH SCH ×3 (07:37→19:00)
--- NOTE | 2019-02-08 07:46 | NUR ---
NASAL CANNULA TITRATED TO 2L. PT NOT SOB AND NOT IN RESPIRATORY DISTRESS. WILL CONTINUE TO MONITOR.
[2019-02-08 08:00] VITALS: BP 123/84
[2019-02-08 08:11] LABS: ANION GAP 18.7 (8-16); CREATININE 1.5 mg/dL (0.7-1.3); POTASSIUM 3.7 mmol/L (3.5-5.1)
[2019-02-08 08:14] LABS: BASOPHILS % (AUTO) 0.2 % (0.0-2.0); EOSINOPHILS % (AUTO) 0.5 % (0.0-4.0); HEMATOCRIT 36.4 % (36-52); HEMOGLOBIN 11.9 g/dL (12.0-18.0); LYMPHOCYTES # (AUTO) 1.9 K/uL (2.0-11.5); LYMPHOCYTES % (AUTO) 25.4 % (20.5-51.1); MEAN CORPUSCULAR HEMOGLOBIN 30 pg (27-31); MEAN CORPUSCULAR HGB CONC 33 g/dL (33-37); MEAN CORPUSCULAR VOLUME 90.5 fL (80-94); MONOCYTES # (AUTO) 0.8 K/uL (0.8-1.0); MONOCYTES % (AUTO) 10.3 % (1.7-9.3); NEUTROPHILS # (AUTO) 4.6 K/uL (1.8-7.7); NEUTROPHILS % (AUTO) 63.6 % (42.2-75.2); PLATELET COUNT (AUTO) 197 K/uL (140-450); RED BLOOD CELL COUNT(AUTO) 4.02 MIL/uL (4.20-6.10); RED CELL DISTRIBUTION WIDTH 21.1 % (11.6-13.7); WHITE BLOOD COUNT (AUTO) 7.3 K/uL (4.8-10.8)
[2019-02-08 08:28] LABS: MAGNESIUM 2.4 mg/dL (1.8-2.4); PHOSPHORUS 3.9 mg/dL (2.5-4.9)
[2019-02-08 08:32] LABS: PROTHROMBIN TIME 15.1 secs (10.8-13.4)
[2019-02-08] MEDS: LISINOPRIL 5 MG TAB PO SCH (08:37)
[2019-02-08] MEDS: CARVEDILOL 3.125 MG TAB PO SCH ×2 (08:38→21:00)
[2019-02-08] MEDS: FAMOTIDINE 20 MG TAB PO SCH ×2 (08:38→21:02)
[2019-02-08] MEDS: ASPIRIN 81 MG TAB.CHEW PO SCH (08:38)
--- NOTE | 2019-02-08 08:40 | NUR ---
URINE WAS COLLECTED AND SENT TO LAB. ADMINISTERED SCHEDULED MEDICATIONS. PATIENT DENIES ANY PAIN AT THIS TIME OR SOB. NO OTHER NEEDS AT THIS TIME.
[2019-02-08 08:50] LABS: CHOL/HDL RATIO 5.6 (1-4.5); THYROID STIMULATING HORMONE 2.61 uIU/mL (0.34-3.74)
[2019-02-08] MEDS ORDERED: NON-FORMULARY ITEM (Fluticasone/Salmeterol* (Advair 250-50 Diskus*) 1 PUFF) IH SCH (09:00)
[2019-02-08] MEDS ORDERED: SPIRONOLACTONE 50 MG TAB PO SCH (09:00)
[2019-02-08] MEDS ORDERED: NON-FORMULARY ITEM (Famotidine 20 MG) PO SCH (09:00)
[2019-02-08] MEDS ORDERED: LISINOPRIL 2.5 MG PO SCH (09:00)
[2019-02-08] MEDS ORDERED: NON-FORMULARY ITEM (Aspirin 81 MG) PO SCH (09:00)
--- NOTE | 2019-02-08 10:30 | NUR ---
PATIENT RESTING IN BED, REQUESTING TRAY FOR . CHARGE NURSE WAS INFORMED.
--- NOTE | 2019-02-08 11:10 | NUR ---
ADMINISTERED SCHEDULED MEDICATIONS. PATIENT IS SLEEPING, EASILY AROUSABLE. NO OTHER NEEDS AT THIS TIME.
[2019-02-08 12:00] VITALS: BP 121/85
[2019-02-08 12:43] LABS: APPEARANCE,URINE CLEAR (CLEAR); BILIRUBIN,URINE NEGATIVE (NEGATIVE); BLOOD, URINE NEGATIVE (NEGATIVE); COLOR,URINE YELLOW (YELLOW); LEUKOCYTE ESTERASE ,URINE NEGATIVE (NEGATIVE); NITRITE, URINE NEGATIVE (NEGATIVE); PH,URINE 5.5 (5.0-9.0); UGLUCOSE NEGATIVE (NEGATIVE)
[2019-02-08 13:07] LABS: BARBITURATE, URINE NEG. ng/ml (NEG <=200); BENZODIAZEPINE, URINE NEG. ng/mL (NEG <=200); CANNABINOID, URINE NEG. ng/mL (NEG <=50); COCAINE, URINE NEG. ng/mL (NEG <=300); OPIATE, URINE NEG. ng/mL (NEG <=2000); PHENCYCLIDINE SCREEN,URINE NEG. ng/mL (NEG <=25)
--- NOTE | 2019-02-08 13:45 | NUR ---
PATIENT RESTING IN BED. DENIES PAIN AT THIS TIME. NO OTHER NEEDS AT THIS TIME.
--- NOTE | 2019-02-08 15:14 | NUR ---
PATIENT IS SLEEPING IN BED EASILY AROUSABLE. NO SIGNS OF DISTRESS AT THIS TIME. NO OTHER NEEDS AT THIS TIME.
[2019-02-08 16:00] VITALS: BP 112/82
--- NOTE | 2019-02-08 17:29 | NUR ---
PATIENT SLEEPING, EASILY AROUSABLE. DENIES PAIN AT THIS TIME. NO OTHER NEEDS AT THIS TIME.
--- NOTE | 2019-02-08 18:50 | NUR ---
PATIENT ANXIOUS AND AGITATED. ADMINISTERED PRN IVP ATIVAN.
--- NOTE | 2019-02-08 19:15 | NUR ---
ENDORSED TO WATER AND GAS HELPER NURSE ELI FOR CONTINUITY OF CARE. PATIENT IS STABLE AT THIS TIME.
--- NOTE | 2019-02-08 19:16 | NUR ---
RECEIVED REPORT FROM DAY SHIFT NURSE TEODORA-LIBBY AT BEDSIDE. PT RESTING IN BED, AOX4, ON 2L/NC WITH A RIGHT HAND #20G RUNNING NS @10ML/HR. SCAB ON RIGHT ANKLE- HEALED. AMBULATORY WITH ASSISTANCE. PT USING URINAL AND COLLECTING URINE. DISCUSSED PLAN OF CARE AND PT VERBALIZED UNDERSTANDING. NO S/S OF RESPIRATORY DISTRESS OR DISCOMFORT NOTED AT THIS TIME. BED IN LOWEST POSITION, BED BREAKS ON, BOTH SIDE RAILS UP AND FALL PRECAUTIONS IN PLACE. BEDSIDE TABLE AND CALL LIGHT ARE WITHIN REACH. WILL CONTINUE TO MONITOR.
--- NOTE | 2019-02-08 19:29 | NUR ---
PATIENT REFUSED HHNTX. PATIENT WILL CALL IF HE NEEDS A HHNTX. O2 ON AT 2LNC
[2019-02-08 20:00] VITALS: BP 97/71
--- NOTE | 2019-02-08 20:00 | NUR ---
VITAL SIGNS TAKEN AND TOLERATED WELL. NO S/S OF RESPIRATORY DISTRESS OR DISCOMFORT NOTED AT THIS TIME. WILL CONTINUE TO MONITOR.
[2019-02-08] MEDS ORDERED: NON-FORMULARY ITEM (Quetiapine Fumarate 50 MG) PO SCH (21:00)
--- NOTE | 2019-02-08 21:00 | NUR ---
PT SLEEPING IN BED. NO S/S OF RESPIRATORY DISTRESS OR DISCOMFORT NOTED AT THIS TIME. WILL CONTINUE TO MONITOR. Addendum: 02/09/19 at 0052 by Nelli Hawkins RN DISREGARD. WRONG TIME
[2019-02-08] MEDS: QUEtiapine FUMARATE 25 MG TAB PO SCH (21:02)
--- NOTE | 2019-02-08 21:10 | NUR ---
SCHEDULED MEDICATIONS GIVEN AND TOLERATED WELL. NO S/S OF RESPIRATORY DISTRESS OR DISCOMFORT NOTED AT THIS TIME. WILL CONTINUE TO MONITOR.
--- NOTE | 2019-02-08 23:00 | NUR ---
PT SLEEPING IN BED. NO S/S OF RESPIRATORY DISTRESS OR DISCOMFORT NOTED AT THIS TIME. WILL CONTINUE TO MONITOR.
[2019-02-09] VITALS: BP 100/62
--- NOTE | 2019-02-09 | NUR ---
VITAL SIGNS TAKEN AND TOLERATED WELL. NO S/S OF RESPIRATORY DISTRESS OR DISCOMFORT NOTED AT THIS TIME. WILL CONTINUE TO MONITOR.
[2019-02-09] MEDS: NACL 0.9% 1,000 ML IV SCH (00:52)
--- NOTE | 2019-02-09 01:30 | NUR ---
PT URINATED ON THE SIDE OF THE BED WITHOUT USING URINAL. ASSISTED PT WITH NEW GOWN, LINENS AND REMINDED PT TO USE URINAL PLACED ON BEDSIDE TABLE. SPOKE WITH DR. BALLARD REGARDING 24HOUR URINE COLLECTION- ORDERS WILL BE CANCELLED.
--- NOTE | 2019-02-09 03:30 | NUR ---
PT CONTINUES TO SLEEP IN BED. NO S/S OF RESPIRATORY DISTRESS OR DISCOMFORT NOTED AT THIS TIME. WILL CONTINUE TO MONITOR.
[2019-02-09 04:00] VITALS: BP 101/65
[2019-02-09 06:23] LABS: ANION GAP 13.9 (8-16); CARBON DIOXIDE 22.4 mmol/L (21-32); CREATININE 1.3 mg/dL (0.7-1.3); POTASSIUM 3.3 mmol/L (3.5-5.1)
[2019-02-09 06:27] LABS: MAGNESIUM 2.1 mg/dL (1.8-2.4); PHOSPHORUS 2.7 mg/dL (2.5-4.9)
[2019-02-09 06:34] LABS: BASOPHILS % (AUTO) 0.1 % (0.0-2.0); EOSINOPHILS % (AUTO) 0.7 % (0.0-4.0); HEMATOCRIT 33.6 % (36-52); HEMOGLOBIN 11.1 g/dL (12.0-18.0); LYMPHOCYTES # (AUTO) 1.5 K/uL (2.0-11.5); LYMPHOCYTES % (AUTO) 19.6 % (20.5-51.1); MEAN CORPUSCULAR HEMOGLOBIN 30 pg (27-31); MEAN CORPUSCULAR HGB CONC 33 g/dL (33-37); MONOCYTES # (AUTO) 0.8 K/uL (0.8-1.0); MONOCYTES % (AUTO) 10.4 % (1.7-9.3); NEUTROPHILS # (AUTO) 5.1 K/uL (1.8-7.7); NEUTROPHILS % (AUTO) 69.2 % (42.2-75.2); PLATELET COUNT (AUTO) 191 K/uL (140-450); RED BLOOD CELL COUNT(AUTO) 3.74 MIL/uL (4.20-6.10); RED CELL DISTRIBUTION WIDTH 20.6 % (11.6-13.7); WHITE BLOOD COUNT (AUTO) 7.4 K/uL (4.8-10.8)
[2019-02-09] MEDS ORDERED: ALBUTEROL SULFATE/IPRATROPIU 3 ML SOL IH PRN (07:23)
[2019-02-09] MEDS: ALBUTEROL SULFATE/IPRATROPIU 3 ML SOL IH SCH ×3 (07:52→18:56)
--- NOTE | 2019-02-09 07:57 | NUR ---
PATIENT WAS SLEEPING COMFORTABLY, EASILY AROUSABLE BY NAME. RESPIRATION EVEN, UNLABOR ON ROOM AIR, SPO2 91%. PATIENT WAS ENCOURAGED TO WEAR OXYGEN AT ALL TIME, PATIENT VERBALIZED UNDERSTANDING. SKIN DRY AND WARM. IV PATENT AND INTACT. DENIED PAIN, SOB AT THIS TIME. PLAN OF CARE WAS DISCUSSED WITH PATIENT. BED AT LOW POSITION, SIDE RAILS UP. CALL LIGHT WITHIN REACH.
[2019-02-09 08:00] VITALS: BP 114/53
[2019-02-09 08:43] LABS: ALBUMIN 2.8 g/dL (3.4-5.0); BILIRUBIN,DIRECT 1.1 mg/dL (0.0-0.3); TOTAL BILIRUBIN 2.7 mg/dL (0.0-1.0)
[2019-02-09] MEDS ORDERED: POTASSIUM CHLORIDE 8 MEQ TABER PO SCH ×2 (09:00)
[2019-02-09] MEDS ORDERED: FUROSEMIDE 40 MG TAB PO SCH (09:00)
[2019-02-09] MEDS: CARVEDILOL 3.125 MG TAB PO SCH ×2 (09:08→20:01)
[2019-02-09] MEDS: LISINOPRIL 5 MG TAB PO SCH (09:08)
[2019-02-09] MEDS: ASPIRIN 81 MG TAB.CHEW PO SCH (09:09)
[2019-02-09] MEDS: FAMOTIDINE 20 MG TAB PO SCH ×2 (09:09→20:01)
[2019-02-09] MEDS: SPIRONOLACTONE 50 MG TAB PO SCH (09:09)
--- NOTE | 2019-02-09 10:24 | NUR ---
IV 20G ON RIGHT HAND WAS REMOVED DUE TO INFILTRATION, CATHETER INTACT, NO ACTIVE BLEEDING SEEN. NEW IV 22G WAS INSERTED ON LEFT FOREARM PATIENT TOLERATED WELL
--- NOTE | 2019-02-09 11:52 | NUR ---
PATIENT WAS AWAKE, ALERT, EATING COMFORTABLY. RESPIRATION EVEN, UNLABOR ON 2L NC. DENIED PAIN, SOB AT THIS TIME. NO DISTRESS NOTED
[2019-02-09 12:00] VITALS: BP 138/75
--- NOTE | 2019-02-09 14:00 | NUR ---
EXTRA JUICE BOXES WERE GIVEN PER PATIENT REQUEST
--- NOTE | 2019-02-09 14:24 | NUR ---
PATIENT WAS SLEEPING COMFORTABLY. RESPIRATION EVEN, UNLABOR ON 2L NC. NO DISTRESS NOTED AT THIS TIME
--- NOTE | 2019-02-09 15:48 | NUR ---
URINE SAMPLE WAS COLLECTED AND SENT TO LAB PER ORDER
--- NOTE | 2019-02-09 15:48 | NUR ---
PATIENT WAS SLEEPING COMFORTABLY. RESPIRATION EVEN, UNLABOR ON ROOM AIR. DENIED PAIN, SOB. NO DISTRESS NOTED AT THIS TIME
[2019-02-09 16:00] VITALS: BP 107/53
--- NOTE | 2019-02-09 18:10 | NUR ---
PATIENT WAS AWAKE, ALERT, EATING DINNER COMFORTABLY. RESPIRATION EVEN, UNLABOR ON ROOM AIR. IV PATENT AND INTACT. NO DISTRESS NOTED AT THIS TIME
--- NOTE | 2019-02-09 19:09 | NUR ---
ENDORSEMENT GIVEN TO MANAGER RECRUITING NURSE. PATIENT IS STABLE AT THIS TIME.
--- NOTE | 2019-02-09 19:10 | NUR ---
RECEIVED REPORT FROM DAY SHIFT NURSE FLORENCE-RN AT BEDSIDE. PT RESTING IN BED, AOX4, ON ROOM AIR WITH A LEFT FA #22G RUNNING NS @5ML/HR. SCAB ON RIGHT ANKLE- HEALED. AMBULATORY WITH ASSISTANCE. PT USING URINAL. DISCUSSED PLAN OF CARE AND PT VERBALIZED UNDERSTANDING. NO S/S OF RESPIRATORY DISTRESS OR DISCOMFORT NOTED AT THIS TIME. BED IN LOWEST POSITION, BED BREAKS ON, BOTH SIDE RAILS UP AND FALL PRECAUTIONS IN PLACE. BEDSIDE TABLE AND CALL LIGHT ARE WITHIN REACH. WILL CONTINUE TO MONITOR.
[2019-02-09 20:00] VITALS: BP 94/63
--- NOTE | 2019-02-09 20:00 | NUR ---
VITAL SIGNS TAKEN AND TOLERATED WELL. DECREASE BP NOTED. NO S/S OF RESPIRATORY DISTRESS OR DISCOMFORT NOTED AT THIS TIME. WILL CONTINUE TO MONITOR.
[2019-02-09] MEDS: QUEtiapine FUMARATE 25 MG TAB PO SCH (20:01)
--- NOTE | 2019-02-09 20:05 | NUR ---
SCHEDULED MEDICATIONS GIVEN AND TOLERATED WELL. COREG NOT GIVEN DUE TO LOW BP. NO S/S OF RESPIRATORY DISTRESS OR DISCOMFORT NOTED AT THIS TIME. WILL CONTINUE TO MONITOR.
--- NOTE | 2019-02-09 22:00 | NUR ---
PT SLEEPING IN BED. NO S/S OF RESPIRATORY DISTRESS OR DISCOMFORT NOTED AT THIS TIME. WILL CONTINUE TO MONITOR.
[2019-02-10] VITALS: BP 100/52
--- NOTE | 2019-02-10 | NUR ---
VITAL SIGNS TAKEN AND TOLERATED WELL. NO S/S OF RESPIRATORY DISTRESS OR DISCOMFORT NOTED AT THIS TIME. WILL CONTINUE TO MONITOR.
[2019-02-10] MEDS: NACL 0.9% 1,000 ML IV SCH (00:35)
--- NOTE | 2019-02-10 02:00 | NUR ---
PT CONTINUES TO SLEEP IN BED. NO S/S OF RESPIRATORY DISTRESS OR DISCOMFORT NOTED AT THIS TIME. WILL CONTINUE TO MONITOR.
[2019-02-10 04:00] VITALS: BP 127/86
--- NOTE | 2019-02-10 04:00 | NUR ---
VITAL SIGNS TAKEN AND TOLERATED WELL. NO S/S OF RESPIRATORY DISTRESS OR DISCOMFORT NOTED AT THIS TIME. WILL CONTINUE TO MONITOR.
--- NOTE | 2019-02-10 06:00 | NUR ---
ASSISTED PT TO USE THE TOILET. PT HAD A BM. NO S/S OF RESPIRATORY DISTRESS OR DISCOMFORT NOTED AT THIS TIME. WILL CONTINUE TO MONITOR.
[2019-02-10 06:12] LABS: HEPATITIS A ANTIBODY IGM Negative (Negative); HEPATITIS B CORE AB TOTAL Positive (Negative); HEPATITIS B SURFACE ANTIBODY Reactive (.); HEPATITIS B SURFACE ANTIGEN Negative (Negative)
[2019-02-10 06:43] LABS: BASOPHILS # (AUTO) 0.1 K/uL (0.00-0.22); BASOPHILS % (AUTO) 0.5 % (0.0-2.0); EOSINOPHILS # (AUTO) 0.2 K/uL (0-0.4); EOSINOPHILS % (AUTO) 1.8 % (0.0-4.0); HEMOGLOBIN 11.9 g/dL (12.0-18.0); LYMPHOCYTES # (AUTO) 1.8 K/uL (2.0-11.5); LYMPHOCYTES % (AUTO) 18.2 % (20.5-51.1); MEAN CORPUSCULAR HEMOGLOBIN 29 pg (27-31); MEAN CORPUSCULAR HGB CONC 32 g/dL (33-37); MEAN CORPUSCULAR VOLUME 90.5 fL (80-94); MONOCYTES # (AUTO) 1.1 K/uL (0.8-1.0); MONOCYTES % (AUTO) 10.7 % (1.7-9.3); NEUTROPHILS # (AUTO) 6.9 K/uL (1.8-7.7); NEUTROPHILS % (AUTO) 68.8 % (42.2-75.2); PLATELET COUNT (AUTO) 204 K/uL (140-450); RED BLOOD CELL COUNT(AUTO) 4.09 MIL/uL (4.20-6.10); RED CELL DISTRIBUTION WIDTH 20.7 % (11.6-13.7)
[2019-02-10 07:07] LABS: ANION GAP 13.1 (8-16); CARBON DIOXIDE 22.6 mmol/L (21-32); CREATININE 1.1 mg/dL (0.7-1.3); POTASSIUM 3.7 mmol/L (3.5-5.1)
[2019-02-10] MEDS: ALBUTEROL SULFATE/IPRATROPIU 3 ML SOL IH SCH ×3 (07:20→19:36)
[2019-02-10 07:28] LABS: MAGNESIUM 2.1 mg/dL (1.8-2.4); PHOSPHORUS 2.7 mg/dL (2.5-4.9)
--- NOTE | 2019-02-10 07:34 | NUR ---
PATIENT WAS AWAKE, ALERT. RESPIRATION EVEN, UNLABOR ON ROOM AIR. SKIN DRY AND WARM. IV PATENT AND INTACT. DENIED PAIN, SOB. PLAN OF CARE WAS DISCUSSED WITH PATIENT. BED AT LOW POSITION, SIDE RAILS UP. CALL LIGHT WITHIN REACH. RT WAS AT BEDSIDE
[2019-02-10 08:00] VITALS: BP 96/72
[2019-02-10] MEDS: FAMOTIDINE 20 MG TAB PO SCH ×2 (08:33→21:47)
[2019-02-10] MEDS: ASPIRIN 81 MG TAB.CHEW PO SCH (08:33)
[2019-02-10] MEDS: CARVEDILOL 3.125 MG TAB PO SCH ×2 (08:33→21:47)
[2019-02-10] MEDS: SPIRONOLACTONE 50 MG TAB PO SCH (08:33)
[2019-02-10] MEDS: LISINOPRIL 5 MG TAB PO SCH (08:34)
--- NOTE | 2019-02-10 08:55 | NUR ---
PATIENT WAS AWAKE, ALERT. RESPIRATION EVEN, UNLABOR ON ROOM AIR. MEDS WERE GIVEN PER ORDER. NO DISTRESS NOTED AT THIS TIME
[2019-02-10] MEDS ORDERED: FUROSEMIDE 40 MG TAB PO SCH (09:00)
--- NOTE | 2019-02-10 11:26 | NUR ---
PATIENT GOT OUT OF BED BY HIMSELF, STATED THAT HE WANT TO WALK WITH PT. CONNER WAS MADE AWARE. PATIENT WAS ENCOURAGED TO SIT IN BED IN THE MEAN TIME. PATIENT VERBALIZE UNDERSTANDING
--- NOTE | 2019-02-10 12:00 | NUR ---
PATIENT WAS AWAKE, ALERT, EATING LUNCH COMFORTABLY. RESPIRATION EVEN, UNLABOR ON ROOM AIR. NO DISTRESS NOTED AT THIS TIME.
[2019-02-10 13:00] VITALS: BP 109/67
[2019-02-10] MEDS: FUROSEMIDE 20 MG/2 ML VIAL IVP SCH ×2 (13:13→21:47)
--- NOTE | 2019-02-10 14:23 | NUR ---
PATIENT WAS RESTING COMFORTABLY. RESPIRATION EVEN, UNLABOR ON ROOM AIR. NO DISTRESS NOTED AT THIS TIME
--- NOTE | 2019-02-10 15:00 | NUR ---
PATIENT WAS EXPLAINED OF FLUID RESTRICTION OF 1.5L PER MD. PATIENT VERBALIZED UNDERSTANDING.
--- NOTE | 2019-02-10 15:44 | NUR ---
DC PLANNING Called [facility], ph [phone], CM assigned is Wily Cordova ext [phone]. Called [facility] msg for list of contracted SNF, ambulance, & Home Health.
[2019-02-10 16:00] VITALS: BP 107/76
--- NOTE | 2019-02-10 16:16 | NUR ---
PATIENT WAS SLEEPING COMFORTABLY, EASILY AROUSABLE BY NAME. RESPIRATION EVEN, UNLABOR ON ROOM AIR. DENIED PAIN, SOB. NO DISTRESS NOTED AT THIS TIME
--- NOTE | 2019-02-10 18:19 | NUR ---
PATIENT WAS AWAKE, ALERT, EATING DINNER COMFORTABLY. IV PATENT AND INTACT. NO DISTRESS NOTED AT THIS TIME
--- NOTE | 2019-02-10 19:21 | NUR ---
ENDORSEMENT GIVEN TO RETAIL PERFORMANCE SPECIALIST NURSE. PATIENT IS STABLE AT THIS TIME.
--- NOTE | 2019-02-10 19:22 | NUR ---
RECEIVED BEDSIDE REPORT FROM SUSAN HENRIQUEZ. PT A/O X4. DISCUSSED PLAN OF CARE. VERBALIZED UNDERSTANDING. ABLE TO MAKE NEEDS KNOWN. STANDARD PRECAUTIONS. ALLERGY BRACELET. FALL RISK PRECAUTIONS IN PLACE. BED IN LOW POSITION.CALL LIGHT WITHIN REACH. YELLOW GOWN, SOCKS, SIGN, WRIST BAND. ROOM AIR. NO SIGNS OF RESP DISTRESS. NO SOB. DENIES PAIN. SKIN IS INTACT. SCABS TO R ANKLE. L FA 22 G SALINE LOCK. PATENT AND INTACT. ABLE TO AMBULATE WITH STANDBY ASSIST. CONTINENT. URINAL AT BEDSIDE. WILL CONTINUE TO MONITOR.
[2019-02-10] MEDS: BUDESONIDE 0.5 MG/2 ML NEBU INH SCH (19:37)
[2019-02-10] MEDS: methylPREDNISolone SS 40 MG/ML VIAL IVP SCH (21:00)
[2019-02-10] MEDS: QUEtiapine FUMARATE 25 MG TAB PO SCH (21:47)
--- NOTE | 2019-02-10 22:30 | NUR ---
PT REQUESTED CHICKEN SANDWICH. REMINDED HE IS ON FLUID RESTRICTION AND CAN HAVE UP TO 1500 ML/DAY. PT VERBALIZED UNDERSTANDING. WILL CONTINUE TO MONITOR.
[2019-02-11] VITALS: BP 118/88
[2019-02-11] MEDS: NACL 0.9% 1,000 ML IV SCH (00:52)
--- NOTE | 2019-02-11 01:35 | NUR ---
PT IS ASLEEP IN BED EASILY AROUSABLE. NO SIGNS OF DISTRESS. EVEN CHEST RISE. DENIES PAIN. NO SOB. WILL CONTINUE TO MONITOR.
--- NOTE | 2019-02-11 03:16 | NUR ---
PT IS AWAKE IN BED. A/O X4. ABLE TO MAKE NEEDS KNOWN. NO SIGNS OF DISTRESS. NO SHORTNESS OF BREATH. NO PAIN AT THIS TIME. WILL CONTINUE TO MONITOR.
[2019-02-11] MEDS: FUROSEMIDE 20 MG/2 ML VIAL IVP SCH ×3 (05:00→20:54)
--- NOTE | 2019-02-11 05:08 | NUR ---
ADMINISTERED LASIX SCHEDULED. VITALS WNL. EDUCATED ON SIDE EFFECTS. VERBALIZED UNDERSTANDING. TOLERATED WELL. WILL CONTINUE TO MONITOR.
[2019-02-11 06:12] LABS: BASOPHILS % (AUTO) 0.3 % (0.0-2.0); EOSINOPHILS # (AUTO) 0.2 K/uL (0-0.4); EOSINOPHILS % (AUTO) 2.1 % (0.0-4.0); HEMATOCRIT 33.4 % (36-52); LYMPHOCYTES # (AUTO) 1.7 K/uL (2.0-11.5); LYMPHOCYTES % (AUTO) 17.7 % (20.5-51.1); MEAN CORPUSCULAR HEMOGLOBIN 30 pg (27-31); MEAN CORPUSCULAR HGB CONC 33 g/dL (33-37); MEAN CORPUSCULAR VOLUME 89.8 fL (80-94); MONOCYTES % (AUTO) 10.3 % (1.7-9.3); NEUTROPHILS # (AUTO) 6.7 K/uL (1.8-7.7); NEUTROPHILS % (AUTO) 69.6 % (42.2-75.2); PLATELET COUNT (AUTO) 189 K/uL (140-450); RED BLOOD CELL COUNT(AUTO) 3.72 MIL/uL (4.20-6.10); RED CELL DISTRIBUTION WIDTH 20.8 % (11.6-13.7); WHITE BLOOD COUNT (AUTO) 9.6 K/uL (4.8-10.8)
[2019-02-11 06:13] LABS: ANION GAP 11.5 (8-16); CREATININE 0.9 mg/dL (0.7-1.3); POTASSIUM 3.5 mmol/L (3.5-5.1)
[2019-02-11 06:25] LABS: ALBUMIN 2.5 g/dL (3.4-5.0); BILIRUBIN,DIRECT 0.6 mg/dL (0.0-0.3); MAGNESIUM 1.8 mg/dL (1.8-2.4); TOTAL BILIRUBIN 1.2 mg/dL (0.0-1.0)
[2019-02-11] MEDS ORDERED: BENZONATATE 100 MG CAPLF PO PRN (06:45)
[2019-02-11] MEDS: ALBUTEROL SULFATE/IPRATROPIU 3 ML SOL IH SCH ×3 (06:45→19:51)
--- NOTE | 2019-02-11 06:47 | NUR ---
PT RECEIVING BREATHING TREATMENT BY RT TECH AT THIS MOMENT. PT TOLERATING WELL. NO SIGNS OF DISTRESS NOTED. WILL CONTINUE TO MONITOR.
[2019-02-11] MEDS: BUDESONIDE 0.5 MG/2 ML NEBU INH SCH ×2 (06:53→19:51)
--- NOTE | 2019-02-11 07:00 | NUR ---
WILL ENDORSE PT TO DAYSJAIME TUCKER. PT IN STABLE CONDITION. BED IN LOW POSITION. CALL LIGHT WITHIN REACH. WILL CONTINUE TO MONITOR.
--- NOTE | 2019-02-11 07:19 | NUR ---
RECEIVED BEDSIDE REPORT FROM MARINE EQUIPMENT PRESERVATION INSPECTOR RN. PT A/O X4. ABLE TO MAKE NEEDS KNOWN. STANDARD PRECAUTIONS. ALLERGY BRACELET. FALL RISK PRECAUTIONS IN PLACE. BED IN LOW POSITION.CALL LIGHT WITHIN REACH. YELLOW GOWN, SOCKS, SIGN, WRIST BAND ON. ROOM AIR. NO SIGNS OF RESP DISTRESS. NO SOB. DENIES PAIN. SKIN IS INTACT. SCABS TO R ANKLE. L FA 22 G RUNNING NS @ 5ML/HR. PATENT AND INTACT. ABLE TO AMBULATE WITH STANDBY ASSIST. CONTINENT. URINAL AT BEDSIDE. DISCUSSED PLAN OF CARE AND PT VERBALIZED UNDERSTANDING. WILL CONTINUE TO MONITOR.
[2019-02-11 08:00] VITALS: BP 106/71
[2019-02-11] MEDS: LISINOPRIL 5 MG TAB PO SCH (08:57)
[2019-02-11] MEDS: SPIRONOLACTONE 50 MG TAB PO SCH (09:00)
[2019-02-11] MEDS: guaiFENesin 600 MG TABER PO SCH ×2 (09:07→20:55)
[2019-02-11] MEDS: ASPIRIN 81 MG TAB.CHEW PO SCH (09:07)
[2019-02-11] MEDS: FAMOTIDINE 20 MG TAB PO SCH ×2 (09:07→20:55)
[2019-02-11] MEDS: AZITHROMYCIN 250 MG TAB PO SCH (09:08)
[2019-02-11] MEDS: CARVEDILOL 3.125 MG TAB PO SCH ×2 (09:08→20:55)
[2019-02-11] MEDS: methylPREDNISolone SS 40 MG/ML VIAL IVP SCH ×3 (09:09→20:54)
--- NOTE | 2019-02-11 09:23 | NUR ---
PER DR MARIN HOLD LISINOPRIL D/T B/P 106/. SHE SAID OK TO GIVE COREG, SHE SAID TO RECHECK THE B/P AGAIN LATER AFTER GIVING COREG AND IF B/P OK GIVE ALDACTONE
--- NOTE | 2019-02-11 09:48 | NUR ---
PT ASKING FOR EXTRA JUICE PACKS. I REMINDED PT THAT HE HAS FLUID RESTRICTION AND CAN ONLY HAVE 1.5L OF FLUID PER DAY. PT VERBALIZED UNDERSTANDING OF TEACHING. WILL CONTINUE TO ROUND FREQUENTLY ON PT.
--- NOTE | 2019-02-11 12:04 | NUR ---
PT SITTING UP IN BED HAVING LUNCH. PT DENIES PAIN OR SOB. NO SIGNS OF DISTRESS. WILL CONTINUE TO ROUND FREQUENTLY ON PT. BED IN LOW POSITION, CALL LIGHT WITHIN REACH.
--- NOTE | 2019-02-11 12:30 | NUR ---
02/11/19 RD INITIAL ASSESSMENT COMPLETED PLEASE REFER TO NUTRITION ASSESSMENT UNDER CARE ACTIVITY FOR ESTIMATED NUTRITIONAL NEEDS. 1. CONTINUE CARDIAC DIET TOLERATED 2. EDUCATION OF CARDIAC-TLC DIET WAS PROVIDED 3. RD TO FOLLOW-UP 5-7 DAYS, LOW RISK DE GOLD RD
--- NOTE | 2019-02-11 13:48 | NUR ---
PT RESTING IN BED WATCHING TV. NO COMPLAINTS OF PAIN OR DISTRESS. NO SOB NOTED. WILL CONTINUE TO MONITOR PT FREQUENTLY. BED IN LOW POSITION, CALL LIGHT WITHIN REACH.
--- NOTE | 2019-02-11 15:49 | NUR ---
PT SLEEPING AT THIS TIME. NO SIGNS OF DISTRESS OR PAIN NOTED. WILL ROUND FREQUENTLY. BED IN LOW POSITION, CALL LIGHT WITHIN REACH.
[2019-02-11 16:00] VITALS: BP 112/63
--- NOTE | 2019-02-11 16:22 | NUR ---
SOL faxed inquiries to: Jarred Ramon [phone], and faxed clinical information to [phone]. [facility] [phone], and faxed clinical information to [phone]. SOL/CM will follow up as needed.
--- NOTE | 2019-02-11 17:48 | NUR ---
PT RESTING IN BED. DINNER WAS FINISHED. ALL NEEDS CURRENTLY MET. WILL CONTINUE TO ROUND FREQUENTLY ON PT.
--- NOTE | 2019-02-11 19:27 | NUR ---
ENDORSED PT TO CERTIFIED ACTIVITIES DIRECTOR FOR CONTINUITY OF CARE. PT IN STABLE CONDITION AT THIS TIME.
[2019-02-11 20:00] VITALS: BP 131/79
[2019-02-11] MEDS: QUEtiapine FUMARATE 25 MG TAB PO SCH (20:56)
--- NOTE | 2019-02-11 21:01 | NUR ---
PLT 189-NORMAL BUT PT AND INR HIGH INFORMED AND ORDERED TO GO AHEAD GIVE THE HEPARIN SQ
[2019-02-12] MEDS: NACL 0.9% 1,000 ML IV SCH (00:52)
[2019-02-12 05:39] LABS: ANION GAP 12.2 (8-16); CARBON DIOXIDE 25.7 mmol/L (21-32); CREATININE 1.1 mg/dL (0.7-1.3); POTASSIUM 3.9 mmol/L (3.5-5.1)
[2019-02-12 05:46] LABS: PHOSPHORUS 2.2 mg/dL (2.5-4.9)
[2019-02-12] MEDS: ALBUTEROL SULFATE/IPRATROPIU 3 ML SOL IH SCH (07:01)
[2019-02-12] MEDS: BUDESONIDE 0.5 MG/2 ML NEBU INH SCH (07:01)
[2019-02-12 07:07] LABS: BASOPHILS % (AUTO) 0.3 % (0.0-2.0); HEMATOCRIT 35.6 % (36-52); HEMOGLOBIN 11.2 g/dL (12.0-18.0); LYMPHOCYTES # (AUTO) 0.7 K/uL (2.0-11.5); LYMPHOCYTES % (AUTO) 5.7 % (20.5-51.1); MEAN CORPUSCULAR HEMOGLOBIN 29 pg (27-31); MEAN CORPUSCULAR HGB CONC 32 g/dL (33-37); MEAN CORPUSCULAR VOLUME 90.6 fL (80-94); MONOCYTES # (AUTO) 0.3 K/uL (0.8-1.0); MONOCYTES % (AUTO) 2.5 % (1.7-9.3); NEUTROPHILS # (AUTO) 10.7 K/uL (1.8-7.7); NEUTROPHILS % (AUTO) 91.5 % (42.2-75.2); PLATELET COUNT (AUTO) 198 K/uL (140-450); RED BLOOD CELL COUNT(AUTO) 3.94 MIL/uL (4.20-6.10); WHITE BLOOD COUNT (AUTO) 11.7 K/uL (4.8-10.8)
--- NOTE | 2019-02-12 07:35 | NUR ---
RECEIVED BEDSIDE REPORT FROM BOX OFFICE AGENT RN. PATIENT IN STABLE CONDITION, NO SIGNS OF DISTRESS ON RA. PT WANTS TO GO HOME. VERY THIRST DUE TO FLUID RESTRICTIONS. THREATENING TO LEAVE AMA IF HE DOES NOT GET SOMETHING TO DRINK. WILL PROVIDE BEVERAGE.
[2019-02-12 08:00] VITALS: BP 128/87
[2019-02-12] MEDS ORDERED: FUROSEMIDE 20 MG/2 ML VIAL IVP SCH (09:00)
--- NOTE | 2019-02-12 09:00 | NUR ---
PATIENT UPSET AND WANTING TO LEAVE. STATED "I HAVE TO BRING FOOD TO MY SHE IS IN THE PARKING LOT IN A GOLD TRUCK". DR. MARIN AT BEDSIDE, PATIENT WAS EDUCATED THAT MAY ENTER THE HOSPITAL AND VISIT HIM AND THAT WE WILL PROVIDE HER WITH A SANDWICH BUT THAT HE CANNOT LEAVE THE HOSPITAL, AND THAT IF HE DOES, HE DOES SO AGAINST MEDICAL ADVICE. PATIENT VERBALIZED UNDERSTANDING AND AGREED TO TAKE HIS MEDICATIONS.
[2019-02-12] MEDS: CARVEDILOL 3.125 MG TAB PO SCH (10:22)
[2019-02-12] MEDS: LISINOPRIL 5 MG TAB PO SCH (10:22)
[2019-02-12] MEDS: FAMOTIDINE 20 MG TAB PO SCH (10:22)
[2019-02-12] MEDS: guaiFENesin 600 MG TABER PO SCH (10:22)
[2019-02-12] MEDS: AZITHROMYCIN 250 MG TAB PO SCH (10:23)
[2019-02-12] MEDS: ASPIRIN 81 MG TAB.CHEW PO SCH (10:23)
[2019-02-12] MEDS: SPIRONOLACTONE 50 MG TAB PO SCH (10:23)
[2019-02-12] MEDS: methylPREDNISolone SS 40 MG/ML VIAL IVP SCH (10:24)
[2019-02-12] MEDS ORDERED: SODIUM PHOS / POTASSIUM PHOS 1 PKT PDR PO SCH (10:30)
--- NOTE | 2019-02-12 10:30 | NUR ---
ADMINISTERED SCHEDULED MEDICATIONS. PATIENT TOLERATED WELL. PT AT BEDSIDE TO WALK AND EXERCISE PATIENT.
[2019-02-12 11:10] LABS: ALBUMIN 2.6 g/dL (3.4-5.0); BILIRUBIN,DIRECT 0.4 mg/dL (0.0-0.3); TOTAL BILIRUBIN 0.8 mg/dL (0.0-1.0)
[2019-02-12] MEDS ORDERED: FURO40TA9 PO (11:10)
[2019-02-12] MEDS ORDERED: AZIT250T11 PO (11:10)
[2019-02-12] MEDS ORDERED: LACT10CA1 PO (11:10)
[2019-02-12] MEDS ORDERED: ROC1PM IV (11:10)
--- NOTE | 2019-02-12 11:15 | NUR ---
CALLED [facility] [phone] TO F/U FOR REQUEST A BED PER ALFREDO ADMISSION COORDINATOR NO BED AVAILABLE AT THIS TIME. CALLED [facility] [phone] SPOKE WITH WILY BECAUSE OF PATIENT HX OF DRUG USE THEY DECLINE.
--- NOTE | 2019-02-12 11:27 | NUR ---
ADMINISTERED SCHEDULED MEDICATIONS. PATIENT TOLERATED WELL. Addendum: 02/12/19 at 1744 by Elen Pearce RN NOTE ENTERED FOR WRONG PATIENT.
--- NOTE | 2019-02-12 11:30 | NUR ---
ENTERED PATIENT ROOM TO ADMINISTER MEDICATION. PATIENT WAS WALKING DOWN THE [place] IN [address] [place]. CAUGHT UP TO PATIENT AND ASKED HIM TO RETURN TO HIS ROOM AND EDUCATED HIM THAT LEAVING THE HOSPITAL WOULD BE CONSIDERED ELOPEMENT AND AGAINST MEDICAL ADVICE. HE CONTINUED WALKING AND WENT OUTSIDE AGAINST ADVICE. PATIENT WENT OUTSIDE AND BEGAN SMOKING A CIGARETTE. HIS WAS AT HIS SIDE. PATIENT IS STATING THAT HE LEFT THE HOSPITAL SO THAT HE COULD BRING FOOD TO HIS . I EDUCATED PATIENT THAT MAY VISIT PATIENT INSIDE THE HOSPITAL. PATIENT REFUSED TO RETURN TO HIS ROOM OR TO RENTER THE HOSPITAL. SECURITY AWARE AND PRESENT AND WITH PATIENT.
--- NOTE | 2019-02-12 11:45 | NUR ---
PATIENT DID NOT RETURN TO THE HOSPITAL OR HIS ROOM AND WAS SEEN DRIVING AROUND THE PARKING LOT IN HIS TRUCK WITH HIS .
--- NOTE | 2019-02-12 12:30 | NUR ---
PATIENT RETURNED TO HIS ROOM TO GET HIS BELONGINGS. PATIENT HAD PREVIOUSLY ELOPED. IV WAS REMOVED, [address] TIP INTACT. [address] MARIN PROVIDED PATIENT WITH PRESCRIPTIONS TO BE FILLED AND EDUCATED PATIENT ON SIGNS AND SYMPTOMS TO SEEK FURTHER TREATMENT. PATIENT LEFT THE HOSPITAL ESCORTED BY SECURITY WITH BELONGINGS IN HAND. PATIENT IN STABLE CONDITION ON RA.
[2019-02-12] MEDS ORDERED: CEPH500C16 PO (13:01)
[2019-02-14 15:10] LABS: FOLIC ACID 9.6 ng/mL (>3.0)
== END 2019-02-12 12:30 | disposition left against medical advice (07) | DRG 469 ==
LOC: MED 21:55 → MMU 02-08 00:52
PROVIDERS: ADMIT General Practice; ATTEND General Practice
DX: N17.0 Acute kidney failure with tubular necrosis (principal); J96.21 Acute and chronic respiratory failure with hypoxia; G93.41 Metabolic encephalopathy; I50.43 Acute on chronic combined systolic (congestive) and diastolic (congestive) heart failure; J18.1 Lobar pneumonia, unspecified organism; I11.0 Hypertensive heart disease with heart failure; D68.9 Coagulation defect, unspecified; I42.9 Cardiomyopathy, unspecified; E87.1 Hypo-osmolality and hyponatremia; E86.0 Dehydration; F20.9 Schizophrenia, unspecified; J44.0 Chronic obstructive pulmonary disease with (acute) lower respiratory infection; J44.1 Chronic obstructive pulmonary disease with (acute) exacerbation; F17.210 Nicotine dependence, cigarettes, uncomplicated; Z96.642 Presence of left artificial hip joint; K73.9 Chronic hepatitis, unspecified; E87.6 Hypokalemia; D64.9 Anemia, unspecified; Z88.8 Allergy status to other drugs, medicaments and biological substances; Z79.82 Long term (current) use of aspirin; Z79.899 Other long term (current) drug therapy; M41.9 Scoliosis, unspecified; Z82.3 Family history of stroke; Z91.14 Patient's other noncompliance with medication regimen; Z71.51 Drug abuse counseling and surveillance of drug abuser
CPT/HCPCS: 36415; 71045; 71046; 76700; 80048; 80053; 80076; 80305; 81003; 82247; 82248; 82607; 82728; 82746; 83036; 83540; 83690; 83735; 83880; 83930; 83935; 84100; 84134; 84300; 84443; 84484; 85025; 85045; 85610; 85730; 86704; 86706; 86708; 86709; 86803; 87081; 87340; 93005; 93970; 94640; 96360; 97110; 97116; 97161-GP; 97530; 99285; G0482; J0696; J1644; J1940; J2060; J2920; J7030; J7060; J7620; J7626; Q0092

== ENCOUNTER 2019-03-01 21:13 | Emergency (ER) | payer MEDICARE, OTHER ==
[~2019-03-01] VITALS: Ht 185.4 cm; Wt 81.6 kg
[~2019-03-01 21:13] MED LIST changes: +AZIT250T11 PO; -BENZ-196 PO; +CEPH500C16 PO; +LACT10CA1 PO
[2019-03-01 21:25] VITALS: BP 108/73
[2019-03-01] MEDS ORDERED: LACTULOSE 20 GM/30 ML UDC PO ONE (21:45)
[2019-03-01] MEDS ORDERED: guaiFENesin/CODEINE 100/10MG 5 ML UDC PO ONE (21:45)
--- NOTE | 2019-03-01 21:50 | NUR ---
PATIENT PRESENTS TO ED WITH C/O SOB. PT STATES HE IS CONSTIPATED AND BELIEVES THAT THE CONSTIPATION IS CAUSING HIS SOB. HE ALSO C/O PRODUCTIVE COUGH. DENIES N/V/D; AAOX4 WITH EVEN AND STEADY GAIT; LUNGS CLEAR BL; HR EVEN AND REGULAR; PT DENIES ANY FEVER. PATIENT STATES PAIN OF 5/10 AT THIS TIME; VSS; PATIENT POSITIONED FOR COMFORT; HOB ELEVATED; BEDRAILS UP X2; BED DOWN. ER MD MADE AWARE OF PT STATUS.
[2019-03-01] MEDS ORDERED: LACTULOSE 20 GM/30 ML UDC ONE (22:11)
[2019-03-01 22:33] LABS: BASOPHILS # (AUTO) 0.1 K/uL (0.00-0.22); BASOPHILS % (AUTO) 0.8 % (0.0-2.0); EOSINOPHILS # (AUTO) 0.1 K/uL (0-0.4); EOSINOPHILS % (AUTO) 1.9 % (0.0-4.0); HEMATOCRIT 37.4 % (36-52); LYMPHOCYTES % (AUTO) 26.8 % (20.5-51.1); MEAN CORPUSCULAR HEMOGLOBIN 29 pg (27-31); MEAN CORPUSCULAR HGB CONC 32 g/dL (33-37); MEAN CORPUSCULAR VOLUME 90.8 fL (80-94); MONOCYTES # (AUTO) 0.6 K/uL (0.8-1.0); MONOCYTES % (AUTO) 8.2 % (1.7-9.3); NEUTROPHILS # (AUTO) 4.7 K/uL (1.8-7.7); NEUTROPHILS % (AUTO) 62.3 % (42.2-75.2); PLATELET COUNT (AUTO) 246 K/uL (140-450); RED BLOOD CELL COUNT(AUTO) 4.12 MIL/uL (4.20-6.10); WHITE BLOOD COUNT (AUTO) 7.5 K/uL (4.8-10.8)
[2019-03-01] MEDS ORDERED: LORazepam 1 MG TAB PO ONE (22:35)
[2019-03-01 22:44] LABS: RED CELL DISTRIBUTION WIDTH 21.4 % (11.6-13.7)
[2019-03-01 22:45] LABS: ANION GAP 16.1 (8-16); CARBON DIOXIDE 22.6 mmol/L (21-32); CREATININE 1.1 mg/dL (0.7-1.3); POTASSIUM 3.7 mmol/L (3.5-5.1)
--- NOTE | 2019-03-01 22:45 | NUR ---
PT C/O ANXIETY AND NOT BEING ABLE TO SLEEP FOR DAYS, HE REQUESTED MEDICATION TO "CALM HIM DOWN." MADE ER MD AWARE.
[2019-03-01 22:53] LABS: ALBUMIN 3.4 g/dL (3.4-5.0); TOTAL BILIRUBIN 1.1 mg/dL (0.0-1.0)
[2019-03-01] MEDS ORDERED: FUROSEMIDE 40 MG TAB PO ONE (22:55)
[2019-03-01 23:10] VITALS: BP 97/61
--- NOTE | 2019-03-01 23:10 | NUR ---
Patient discharged with v/s stable. Written and verbal after care instructions given and explained. Patient alert, oriented and verbalized understanding of instructions. Ambulatory with steady gait. All questions addressed prior to discharge. ID band removed. Patient advised to follow up with PMD. Rx of LASIX 20MG given. Patient educated on indication of medication including possible reaction and side effects. Opportunity to ask questions provided and answered.
== END 2019-03-01 23:10 | disposition home or self-care (01) ==
LOC: MED 21:13
DX: I11.0 Hypertensive heart disease with heart failure (principal); I50.9 Heart failure, unspecified; K59.00 Constipation, unspecified; R05 Cough; F17.210 Nicotine dependence, cigarettes, uncomplicated; J44.9 Chronic obstructive pulmonary disease, unspecified; Z71.6 Tobacco abuse counseling; Z79.82 Long term (current) use of aspirin; Z79.899 Other long term (current) drug therapy; Z88.6 Allergy status to analgesic agent
CPT/HCPCS: 36415; 71045; 80053; 83880; 85025; 99284; Q0092

== ENCOUNTER 2019-03-11 06:59 | Inpatient (IN) | payer MEDICARE, MEDICAID ==
[~2019-03-11] VITALS: Ht 193 cm; Wt 76.7 kg
[2019-03-11 07:07] VITALS: BP 126/100
[2019-03-11] MEDS ORDERED: methylPREDNISolone SS 125 MG/2 ML VIAL IVP ONE (07:15)
[2019-03-11] MEDS ORDERED: IPRATROPIUM 0.02% 0.5 MG/2.5 ML NEBU INH ONE (07:15)
[2019-03-11] MEDS ORDERED: ALBUTEROL 0.083% 2.5 MG/3 ML NEBU INH ONE (07:15)
--- NOTE | 2019-03-11 07:16 | NUR ---
PT TAKEN TO BED 3
--- NOTE | 2019-03-11 07:17 | NUR ---
Dr. Flores evaluating patient at bedside.
--- NOTE | 2019-03-11 07:41 | NUR ---
it telecom technician at bedside.
--- NOTE | 2019-03-11 07:45 | NUR ---
PT PRESENTS TO ED WITH C/O DIFFICULTY BREATHING SINCE LAST NIGHT. O2 SAT 98% ON RA. LUNGS CLEAR BILATERALLY. VSS. PLACED IN GOWN; CONNECTED TO MONITOR. ERMD TO EVALUATE PT
[2019-03-11] MEDS ORDERED: NACL 0.9% 1,000 ML IV ONE (08:20)
[2019-03-11] MEDS ORDERED: MAG SULF 2000 MG/WATER PREMIX 50 ML IV ONE (08:20)
[2019-03-11 08:42] LABS: PROTHROMBIN TIME 12.1 secs (10.8-13.4)
[2019-03-11 08:44] LABS: ANION GAP 15.4 (8-16); CARBON DIOXIDE 23.3 mmol/L (21-32); CREATININE 1.1 mg/dL (0.7-1.3); POTASSIUM 4.7 mmol/L (3.5-5.1)
[2019-03-11 08:53] LABS: BASOPHILS # (AUTO) 0.1 K/uL (0.00-0.22); BASOPHILS % (AUTO) 0.7 % (0.0-2.0); EOSINOPHILS # (AUTO) 0.1 K/uL (0-0.4); EOSINOPHILS % (AUTO) 0.8 % (0.0-4.0); HEMATOCRIT 42.5 % (36-52); HEMOGLOBIN 13.5 g/dL (12.0-18.0); LYMPHOCYTES # (AUTO) 2.2 K/uL (2.0-11.5); LYMPHOCYTES % (AUTO) 21.7 % (20.5-51.1); MEAN CORPUSCULAR HEMOGLOBIN 29 pg (27-31); MEAN CORPUSCULAR HGB CONC 32 g/dL (33-37); MEAN CORPUSCULAR VOLUME 90.9 fL (80-94); MONOCYTES # (AUTO) 0.7 K/uL (0.8-1.0); MONOCYTES % (AUTO) 7.3 % (1.7-9.3); NEUTROPHILS % (AUTO) 69.5 % (42.2-75.2); PLATELET COUNT (AUTO) 280 K/uL (140-450); RED BLOOD CELL COUNT(AUTO) 4.67 MIL/uL (4.20-6.10); RED CELL DISTRIBUTION WIDTH 20.5 % (11.6-13.7)
[2019-03-11 08:57] LABS: ALBUMIN 3.6 g/dL (3.4-5.0); TOTAL BILIRUBIN 1.1 mg/dL (0.0-1.0)
--- NOTE | 2019-03-11 09:10 | NUR ---
PT ENCOURAGED TO PROVIDE UA. PT UNABLE TO URINATE AT THIS TIME.
--- NOTE | 2019-03-11 09:41 | NUR ---
Medical students evaluating patient at bedside.
[2019-03-11] MEDS ORDERED: LORazepam 2 MG/ML VIAL IM/IVP PRN (11:00)
[2019-03-11] MEDS ORDERED: ACETAMINOPHEN 325 MG TAB PO PRN (11:00)
[2019-03-11] MEDS ORDERED: ZOLPIDEM 5 MG TAB PO PRN (11:00)
[2019-03-11] MEDS ORDERED: ONDANSETRON 4 MG/2 ML VIAL IM/IVP PRN (11:00)
[2019-03-11] MEDS ORDERED: DOCUSATE SODIUM 100 MG GELCAP PO PRN (11:00)
[2019-03-11] MEDS ORDERED: SPIRONOLACTONE 50 MG TAB PO SCH (11:23)
--- NOTE | 2019-03-11 11:40 | NUR ---
PATIENT ARRIVED FROM ER VIA WHEELCHAIR. ABLE TO AMBULATE FROM WHEELCHAIR AND MST BED WITH STEADY GAIT. AAOX4, CALM, COOPERATIVE, SKIN COLOR APPROPRIATE TO ETHNICITY, WARM TO TOUCH. SKIN INTACT. RESPIRATIONS EVEN, UNLABORED, ON ROOM AIR. ABDOMEN SOFT, NON-DISTENDED. ORIENTED PATIENT TO ROOM AND CALL LIGHT. REVIEWED PLAN OF CARE WITH PATIENT. PATIENT VERBALIZED UNDERSTANDING. SAFETY MEASURES IN PLACE, CALL LIGHT WITHIN REACH. WILL CONTINUE TO MONITOR.
--- NOTE | 2019-03-11 11:48 | NUR ---
Patient admitted to Telemetry Room 126A. Belongings list completed. Report to LIBBY Hammond.
[2019-03-11 12:00] VITALS: BP 125/88
--- NOTE | 2019-03-11 13:00 | NUR ---
SCHEDULED MEDICATIONS DUE GIVEN. WILL CONTINUE TO MONITOR.
[2019-03-11 13:01] LABS: PROTHROMBIN TIME 11.8 secs (10.8-13.4)
[2019-03-11 13:06] LABS: FREE T4 (FREE THYROXINE) 1.21 ng/dL (0.76-1.46); PHOSPHORUS 3.9 mg/dL (2.5-4.9); THYROID STIMULATING HORMONE 3.83 uIU/mL (0.34-3.74)
[2019-03-11] MEDS ORDERED: NACL 0.9% 1,000 ML IV SCH (14:55)
[2019-03-11 16:00] VITALS: BP 118/81
[2019-03-11] MEDS ORDERED: LACTULOSE 20 GM/30 ML UDC PO SCH (17:00)
[2019-03-11 17:09] LABS: BARBITURATE, URINE NEG. ng/ml (NEG <=200); BENZODIAZEPINE, URINE NEG. ng/mL (NEG <=200); CANNABINOID, URINE NEG. ng/mL (NEG <=50); COCAINE, URINE NEG. ng/mL (NEG <=300); OPIATE, URINE NEG. ng/mL (NEG <=2000); PHENCYCLIDINE SCREEN,URINE NEG. ng/mL (NEG <=25)
[2019-03-11 17:10] LABS: APPEARANCE,URINE CLEAR (CLEAR); BILIRUBIN,URINE NEGATIVE (NEGATIVE); BLOOD, URINE NEGATIVE (NEGATIVE); COLOR,URINE DARK YELLOW (YELLOW); LEUKOCYTE ESTERASE ,URINE NEGATIVE (NEGATIVE); NITRITE, URINE NEGATIVE (NEGATIVE); UGLUCOSE NEGATIVE (NEGATIVE)
--- NOTE | 2019-03-11 17:22 | NUR ---
PATIENT SITTING IN BED WATCHING TV. NO DISTRESS NOTED. DENIES ANY PAIN. SCHEDULED MEDICATIONS DUE GIVEN. WILL CONTINUE TO MONITOR.
--- NOTE | 2019-03-11 19:22 | NUR ---
GAVE REPORT TO CAREER DEVELOPMENT COUNSELOR NURSE FOR CONTINUITY OF CARE. PATIENT IN STABLE CONDITION.
--- NOTE | 2019-03-11 19:25 | NUR ---
RECEIVED FROM AM RN IN BED SITTING UP WITH VISITORS/BROTHER VISITING. DENIES PAIN AT TH IS TIME. CALL LIGHT WITH IN REACH. NO SOB. 02 SAT ROOM AIR 100 %. COUGHING (PRODUCTIVE) INTERMITTENTLY TO WHITISH PHLEGM NOTED. CARE PLANS FOR THE NIGHT DISCUSSED WITH HIM. IVF SITE INTACT AND NO S/S OF INFILTRATION. TELEMETRY MONITORING.
[2019-03-11 20:00] VITALS: BP 139/97
[2019-03-11] MEDS: CARVEDILOL 3.125 MG TAB PO SCH (20:59)
[2019-03-11] MEDS: QUEtiapine FUMARATE 25 MG TAB PO SCH (20:59)
[2019-03-11] MEDS ORDERED: NON-FORMULARY ITEM (Fluticasone/Salmeterol* (Advair 250-50 Diskus*) 1 PUFF) IH SCH (21:00)
[2019-03-11] MEDS ORDERED: NON-FORMULARY ITEM (Quetiapine Fumarate 50 MG) PO SCH (21:00)
[2019-03-11] MEDS ORDERED: NON-FORMULARY ITEM (Famotidine 20 MG) PO SCH (21:00)
[2019-03-11] MEDS: FAMOTIDINE 20 MG TAB PO SCH (21:00)
[2019-03-11] MEDS: FUROSEMIDE 40 MG/4 ML VIAL IVP SCH (21:01)
--- NOTE | 2019-03-11 21:47 | NUR ---
PT. TOOK OUT PREVIOUS IVF SITE. STATED HE DID IT ACCIDENTALLY. TIP INTACT. NEW IVF LINE INSERTED TO RIGHT HAND #22. TOLERATED WELL. GOOD BLOOD RETURN. CALL LIGHT WITH IN REACH.
--- NOTE | 2019-03-11 22:03 | NUR ---
PT. ASSISTED BY HATCHERY WORKER TO GO RESTROOM FOR BOWEL MOVEMENT REQUESTED BY PT. ABLE TO VERBALIZE NEEDS WELL. ROOM AIR 02 SAT AT 99%. ENCOURAGED TO CALL FOR ANY HELP HE MAY NEED. CALL LIGHT WITH IN REACH AT ALL TIMES.
[2019-03-12 00:36] VITALS: BP 117/62
--- NOTE | 2019-03-12 00:38 | NUR ---
RESIDENT MD SARAVIA WITH ORDERS FOR EKG AT THIS TIME . PT. SLEEPING. AROUSABLE. ABLE TO CARRY A CONVERSATION WELL WITH ME.
--- NOTE | 2019-03-12 03:14 | NUR ---
PT. SLEEPING AT THIS TIME. HAD A BIG BM PRIOR TO SLEEPING. CALL LIGHT WITH IN REACH. TELEMETRY MONITORING.
[2019-03-12 04:09] VITALS: BP 116/68
--- NOTE | 2019-03-12 04:21 | NUR ---
AM PERSONAL HYGIENE RENDERED BY CNAS. ABLE TO VERBALIZE NEEDS WELL. CALL LIGHT WITH IN REACH AND ABLE TO COMMUNICATE WELL WITH CARE GIVERS AND ME. DENIES ANY PAIN. NO COMPLAINTS DONE. ON ROOM AIR AND 02 SAT RANGING FROM 97 TO 100 %. NO CHEST PAIN COMPLAINTS THIS SHIFT.
--- NOTE | 2019-03-12 06:03 | NUR ---
PT. PROVIDED WITH ORANGE JUICE REQUESTED . NOTED THAT NEW IVF INSERTED EARLIER PULLED OUT BY PT. AGAIN. "I REALLY DO NOT KNOW WHY I DO THAT." WILL ENDORSE TO AM RN FOR CONTINUITY OF CARE. PT. WANTS TO GO BACK TO SLEEP AND REFUSING TO HAVE NEW IVF RE-INSERTED AT THIS TIME.
--- NOTE | 2019-03-12 06:06 | NUR ---
PT. D/CD NEW IVF SITE INSERTED EARLIER NOTED WITH TIP INTACT. COVERED SITE WITH BAND AID.
[2019-03-12 07:05] LABS: ANION GAP 16.7 (8-16); CARBON DIOXIDE 21.8 mmol/L (21-32); CREATININE 1.1 mg/dL (0.7-1.3); POTASSIUM 4.5 mmol/L (3.5-5.1)
--- NOTE | 2019-03-12 07:23 | NUR ---
ENDORSED TO THE NEXT AM RN FOR CONTINUITY OF CARE. WAKES UP EASILY WHEN CALLED BY NAME . ABLE TO VERBALIZE NEEDS WELL. NO COMPLAINTS DONE THIS SHIFT.
[2019-03-12 07:25] LABS: HEMATOCRIT 34.7 % (36-52); HEMOGLOBIN 11.2 g/dL (12.0-18.0); LYMPHOCYTES # (AUTO) 0.9 K/uL (2.0-11.5); LYMPHOCYTES % (AUTO) 8.9 % (20.5-51.1); MEAN CORPUSCULAR HEMOGLOBIN 29 pg (27-31); MEAN CORPUSCULAR HGB CONC 32 g/dL (33-37); MEAN CORPUSCULAR VOLUME 89.8 fL (80-94); MONOCYTES # (AUTO) 0.2 K/uL (0.8-1.0); MONOCYTES % (AUTO) 2.6 % (1.7-9.3); NEUTROPHILS # (AUTO) 8.5 K/uL (1.8-7.7); NEUTROPHILS % (AUTO) 88.5 % (42.2-75.2); PLATELET COUNT (AUTO) 228 K/uL (140-450); RED BLOOD CELL COUNT(AUTO) 3.87 MIL/uL (4.20-6.10); RED CELL DISTRIBUTION WIDTH 20.2 % (11.6-13.7); WHITE BLOOD COUNT (AUTO) 9.6 K/uL (4.8-10.8)
--- NOTE | 2019-03-12 07:31 | NUR ---
RECEIVED REPORT FROM CHIEF CONSOLE OPERATOR NURSE. AAOX4, PT LYING IN BED. NO C/O PAIN AT THIS TIME. PT PULLED OUT IV LAST NIGHT. LUNG SOUNDS ARE DIMINISHED THROUGHOUT UPON AUSCULTATION. BOWEL SOUNDS ACTIVE, ABDOMEN SOFT. NO EDEMA NOTED TO EXTREMITIES AT THIS TIME. NOTIFIED PT TO WEAR NON SKID SOCKS AT ALL TIMES. REVIEWED POC WITH PT, PT VERBALIZED UNDERSTANDING. SKIN IS INTACT, WARM TO TOUCH. SAFETY MEASURES IN PLACE, CALL LIGHT WITHIN REACH. WILL CONTINUE TO MONITOR.
[2019-03-12 08:00] VITALS: BP 113/82
[2019-03-12] MEDS: TAMSULOSIN 0.4 MG CAP PO SCH (08:59)
--- NOTE | 2019-03-12 08:59 | NUR ---
PATIENT HAS BEEN SCREENED AND CATEGORIZED MODERATE NUTRITION RISK. PATIENT WILL BE SEEN WITHIN 3-5 DAYS OF ADMISSION. 03/13/19 03/15/[address]
[2019-03-12] MEDS ORDERED: FUROSEMIDE 40 MG/4 ML VIAL IVP SCH (09:00)
[2019-03-12] MEDS ORDERED: LISINOPRIL 2.5 MG PO SCH (09:00)
[2019-03-12] MEDS: FAMOTIDINE 20 MG TAB PO SCH ×2 (09:00→20:41)
[2019-03-12] MEDS: SPIRONOLACTONE 50 MG TAB PO SCH (09:00)
[2019-03-12] MEDS: CARVEDILOL 3.125 MG TAB PO SCH ×2 (09:00→20:41)
[2019-03-12] MEDS ORDERED: NON-FORMULARY ITEM (Aspirin 81 MG) PO SCH (09:00)
[2019-03-12] MEDS: ASPIRIN 81 MG TAB.CHEW PO SCH (09:01)
[2019-03-12] MEDS: LISINOPRIL 5 MG TAB PO SCH (09:02)
[2019-03-12] MEDS: AZITHROMYCIN 250 MG TAB PO SCH (09:02)
[2019-03-12] MEDS: NICOTINE TRANSD SYS 7 MG/24 HR PATCH TD SCH (09:03)
[2019-03-12] MEDS ORDERED: AZITHROMYCIN 500 MG in DEXTROSE 5% 250 ML IV ONE (09:05)
[2019-03-12] MEDS: FUROSEMIDE 40 MG/4 ML VIAL IVP SCH ×2 (09:25→20:41)
--- NOTE | 2019-03-12 09:25 | NUR ---
STARTED IV ON RT FA 22 GA, FLUSHING WELL, NO RESISTANCE NOTED. NOTIFIED PT TO WATCH FOR S/S OF INFLAMMATION AND INFILTRATION SUCH REDNESS, SWELLING, AND WARMTH TO AREA.
[2019-03-12] MEDS: ALBUTEROL SULFATE/IPRATROPIU 3 ML SOL IH PRN (11:16)
--- NOTE | 2019-03-12 11:44 | NUR ---
PT C/O LEVEL 5 PAIN TO LT ANKLE. GIVEN PAIN MEDICATION PER ORDER. WILL REASSESS IN 1 HOUR.
--- NOTE | 2019-03-12 13:00 | NUR ---
PT REQUESTED ADDITIONAL SANDWICH FOR LUNCH. PER [facility] WILL BRING SANDWICH TO PT. PT REQUESTED MORE JUICE AND WATER. INFORMED PT THAT HE IS ON FLUID RESTRICTION, PT AGREES AND VERBALIZED UNDERSTANDING.
[2019-03-12 16:00] VITALS: BP 114/74
--- NOTE | 2019-03-12 19:30 | NUR ---
ASSUMED CARE OF PATIENT, AWAKE, ALERT AND ORIENTED. NO COMPLAINS. SLEEPING WELL, EASILY AROUSABLE. CARE BOARD UPDATED. CALL LIGHT WITHIN REACH.
--- NOTE | 2019-03-12 19:39 | NUR ---
RECEIVED PATIENT ON ROOM AIR, PULSE OX SAT 98%. PATIENT DENIES ANY SHORTNESS OF BREATH AT THIS TIME. BREATH SOUNDS CLEAR. PRN BREATHING TREATMENT NOT INDICATED AT THIS TIME. NO RESPIRATORY DISTRESS NOTED. WILL CONTINUE TO MONITOR.
[2019-03-12] MEDS: methylPREDNISolone SS 125 MG/2 ML VIAL IVP SCH (20:40)
[2019-03-12] MEDS: QUEtiapine FUMARATE 25 MG TAB PO SCH (20:41)
[2019-03-12] MEDS: LACTULOSE 20 GM/30 ML UDC PO SCH (20:41)
--- NOTE | 2019-03-12 21:00 | NUR ---
DUE MEDS GIVEN. AMBULATING WELL BRP. SNACK GIVEN PER REQUEST. CALL LIGHT WITHIN REACH. PLAN OF CARE DISCUSSED WITH PATIENT, VERBALIZED UNDERSTANDING WELL.
[2019-03-13 00:10] VITALS: BP 110/75
--- NOTE | 2019-03-13 00:10 | NUR ---
ATE SNACK. VITAL SIGNS STABLE. NO COMPLAINS. CALL LIGHT WITHIN REACH.
--- NOTE | 2019-03-13 02:30 | NUR ---
SNACK GIVEN PER REQUEST. NO COMPLAINS. CALL LIGHT WITHIN REACH.
--- NOTE | 2019-03-13 05:21 | NUR ---
ASLEEP. NO COMPLAINS. CALL LIGHT WITHIN REACH.
--- NOTE | 2019-03-13 07:16 | NUR ---
ENDORSED CARE AT BEDSIDE WITH SHEELA RN, PATIENT IN STABLE CONDITION.
--- NOTE | 2019-03-13 07:17 | NUR ---
RECEIVED BEDSIDE REPORT FROM NURSING ASSISTANTS TEACHER NURSE. PATIENT IS AWAKE, ALERT AND ORIENTEDX4. NO SIGNS OF DISTRESS ON RA. SKIN IS INTACT. IV ON R FA 22G SL. CLEAN, DRY AND INTACT. PATIENT IS AMBULATORY. CONTINENT. BEDSIDE COMMODE AVAILABLE. CONTACT FOR MRSA NARES. BED IN LOW POSITION. CALL LIGHT WITHIN REACH. PATIENT ABLE TO MAKE NEEDS KNOWN. WILL CONTINUE TO MONITOR THE PATIENT
[2019-03-13 08:00] VITALS: BP 119/89
--- NOTE | 2019-03-13 09:03 | NUR ---
NICOTINE PATCH NOT ON CHANDLER, PATIENT SAID HE THINKS IT CAME OFF WHILE HE WAS IN BED
[2019-03-13] MEDS: SPIRONOLACTONE 50 MG TAB PO SCH (09:05)
[2019-03-13] MEDS ORDERED: AZITHROMYCIN 250 MG in DEXTROSE 5% 250 ML IV SCH (09:05)
[2019-03-13] MEDS: ASPIRIN 81 MG TAB.CHEW PO SCH (09:05)
[2019-03-13] MEDS: AZITHROMYCIN 250 MG TAB PO SCH (09:05)
[2019-03-13] MEDS: FAMOTIDINE 20 MG TAB PO SCH ×2 (09:06→20:02)
[2019-03-13] MEDS: TAMSULOSIN 0.4 MG CAP PO SCH (09:06)
[2019-03-13] MEDS: CARVEDILOL 3.125 MG TAB PO SCH ×2 (09:06→20:02)
[2019-03-13] MEDS: LACTULOSE 20 GM/30 ML UDC PO SCH ×2 (09:06→20:02)
[2019-03-13] MEDS: LISINOPRIL 5 MG TAB PO SCH (09:06)
[2019-03-13] MEDS: methylPREDNISolone SS 125 MG/2 ML VIAL IVP SCH (09:07)
[2019-03-13] MEDS: FUROSEMIDE 40 MG/4 ML VIAL IVP SCH ×2 (09:07→20:01)
[2019-03-13] MEDS: CHLORHEXADINE GLUC 2% CLOTH TP SCH (09:07)
[2019-03-13] MEDS: MUPIROCIN CA NASAL 2% 1GM TUBE NS SCH (09:07)
[2019-03-13] MEDS: NICOTINE TRANSD SYS 7 MG/24 HR PATCH TD SCH (09:12)
--- NOTE | 2019-03-13 09:20 | NUR ---
ADMINISTERED MORNING MEDS. PATIENT TOLERATED WELL. EDUCATED ON SIDE EFFECTS. WILL CONTINUE TO MONITOR THE PATIENT
--- NOTE | 2019-03-13 11:00 | NUR ---
PATIENT IS SLEEPING. NO SIGNS OF DISTRESS. WILL CONTINUE TO MONITOR THE PATIENT
--- NOTE | 2019-03-13 13:30 | NUR ---
PATIENT REQUESTING EXTRA FOOD. CALLED [facility] TO ASK FOR EXTRA FOOD. PATIENT WANTS MORE ORANGE JUICE, EXPLAINED TO HIM THAT HE IS ON FLUID RESTRICTIONS BUT PATIENT IS ANGRY AND SAID HE IS THIRSTY AND NEEDS WATER AND JUICE. PATIENT IS NONCOMPLIANT EVEN W THE EDUCATION OF THE IMPORTANCE OF FLUID RESTRICTIONS
--- NOTE | 2019-03-13 15:00 | NUR ---
PATIENT IS SLEEPING. WILL CONTINUE TO MONITOR THE PATIENT
[2019-03-13 16:00] VITALS: BP 135/76
--- NOTE | 2019-03-13 17:16 | NUR ---
PATIENT BACK IN BED FROM THE RESTROOM. AMBULATING WELL. ADMINISTERED GUILHERME MED. EDUCATED ON SIDE EFFECTS. PATIENT TOLERATING WELL. WILL CONTINUE TO MONITOR THE PATIENT
--- NOTE | 2019-03-13 18:00 | NUR ---
PATIENT REQUESTING EXTRA FOOD. CALLED [facility] AND ORDERED MORE FOOD
--- NOTE | 2019-03-13 19:25 | NUR ---
GAVE BEDSIDE REPORT FROM SENIOR QC TECHNICIAN NURSE. PATIENT ENDORSED IN STABLE CONDITION. TOLD SENIOR QC TECHNICIAN PATIENT WENT OVER THE FLUID RESTRICTIONS AND NON COMPLAINT. PLEASE NO MORE FLUIDS. CNAS ARE AWARE
--- NOTE | 2019-03-13 19:26 | NUR ---
RECEIVED BEDSIDE REPORT FROM DAY SHIFT NURSE. PATIENT IS AAOX4. NO SIGNS OF DISTRESS ON ROOM AIR. SKIN IS INTACT, WARM AND DRY TO TOUCH. IV ON R FA 22G SL. PATENT, INTACT, AND ASYMPTOMATIC. PATIENT IS AMBULATORY. CONTINENT. BEDSIDE COMMODE AVAILABLE. CONTACT FOR MRSA NARES. BOARD UPDATED, POC REVIEWED AND DISCUSSED WITH PT. PT VERBALIZED UNDERSTANDING. BED IN LOW POSITION. CALL LIGHT WITHIN REACH. PATIENT ABLE TO MAKE NEEDS KNOWN. WILL CONTINUE TO MONITOR.
[2019-03-13] MEDS: QUEtiapine FUMARATE 25 MG TAB PO SCH (20:02)
[2019-03-13] MEDS: methylPREDNISolone SS 40 MG/ML VIAL IVP SCH (20:02)
--- NOTE | 2019-03-13 20:02 | NUR ---
GIVEN LASIX, SOLU-MEDROL, CEPHULAC, COREG, PEPCID, SEROQUEL, AND HEPARIN MD ORDERED. PT TOLERATED WELL. WILL CONTINUE TO MONITOR.
--- NOTE | 2019-03-13 20:20 | NUR ---
PT ASKING 2PACKS OF JUICE, EDUCATE HIM THAT PT ON RESTRICTED ON FLUID. PT TRIED TO GET JUICE BY HIMSELF. GIVEN 2PACKS OF JUICE D/T UNCONTROLLED BEHAVIOR.
--- NOTE | 2019-03-13 22:00 | NUR ---
PT KEEP ASKING WATER, ICE, AND JUICE. EDUCATED PT AGAIN IT IS MD'S ORDER FOR PT TO HAVE ONLY 1.5L FLUID PER DAY. PT VERBALIZED UNDERSTANDING THIS TIME.
[2019-03-14] VITALS: BP 117/73
--- NOTE | 2019-03-14 00:10 | NUR ---
VS CHECKED, WITHIN NORMAL RANGE. PT ASKING JUICE AGAIN. EDUCATED HIM TO LIMIT FLUID INTAKE.
[2019-03-14] MEDS: ALBUTEROL SULFATE/IPRATROPIU 3 ML SOL IH PRN (01:04)
--- NOTE | 2019-03-14 02:30 | NUR ---
PT ASKING JUICE AND JELLO, EXPLAINED TO HIM THAT HE IS ON FLUID RESTRICTIONS BUT PATIENT IS ANGRY AND HE NEEDS JUICE AND JELLO SINCE HE URINATING A LOT. PATIENT IS NONCOMPLIANT EVEN W THE EDUCATION OF THE IMPORTANCE OF FLUID RESTRICTIONS
[2019-03-14] MEDS: methylPREDNISolone SS 40 MG/ML VIAL IVP SCH ×3 (04:31→22:17)
--- NOTE | 2019-03-14 04:31 | NUR ---
GIVEN SOLU-MEDROL MD ORDERED. PT TOLERATED WELL.
--- NOTE | 2019-03-14 05:45 | NUR ---
PT SLEEPING IN BED COMFORTABLY. BED IN LOW POSITION. CALL LIGHT WITHIN REACH.
--- NOTE | 2019-03-14 07:28 | NUR ---
ENDORSED PT TO DAY SHIFT NURSE. PT IN STABLE CONDITION.
--- NOTE | 2019-03-14 07:29 | NUR ---
RECEIVED BEDSIDE REPORT FROM LIBBY MONTIEL. PT STABLE, AWAKE, ALERT AND ORIENTED X4. NO SIGNS OF DISTRESS NOTED. DENIES PAIN OR SOB. NO REDNESS, SWELLING, OR INFLAMMATION NOTED ON IV SITE. CALL MUSA WITHIN REACH. BED IN LOWEST POSITION, BED ALARM ON. SAFETY MEASURES IN PLACE. PLAN OF CARE REVIEWED. INFORMED PT OF FLUID RESTRICTION 1.5L/DAY. PER PHLEBOTOMY MANAGER NURSE, PT IS NONCOMPLIANT. WILL CONTINUE TO MONITOR.
[2019-03-14 08:00] VITALS: BP 137/81
--- NOTE | 2019-03-14 08:07 | NUR ---
INFORMED DR GALARZA THAT PT DOES NOT HAVE LABS ORDERED FOR TODAY.
[2019-03-14] MEDS: CHLORHEXADINE GLUC 2% CLOTH TP SCH (09:00)
[2019-03-14] MEDS: TAMSULOSIN 0.4 MG CAP PO SCH (09:59)
[2019-03-14] MEDS: ASPIRIN 81 MG TAB.CHEW PO SCH (10:00)
[2019-03-14] MEDS: FUROSEMIDE 40 MG/4 ML VIAL IVP SCH ×2 (10:00→22:18)
[2019-03-14] MEDS: LISINOPRIL 5 MG TAB PO SCH (10:00)
[2019-03-14] MEDS: AZITHROMYCIN 250 MG TAB PO SCH (10:01)
[2019-03-14] MEDS: MUPIROCIN CA NASAL 2% 1GM TUBE NS SCH (10:01)
[2019-03-14] MEDS: LACTULOSE 20 GM/30 ML UDC PO SCH ×2 (10:01→22:17)
[2019-03-14] MEDS: SPIRONOLACTONE 50 MG TAB PO SCH (10:02)
[2019-03-14] MEDS: FAMOTIDINE 20 MG TAB PO SCH ×2 (10:03→22:18)
[2019-03-14] MEDS: CARVEDILOL 3.125 MG TAB PO SCH ×2 (10:03→22:18)
[2019-03-14] MEDS: NICOTINE TRANSD SYS 7 MG/24 HR PATCH TD SCH (10:04)
--- NOTE | 2019-03-14 10:05 | NUR ---
ADMINISTERED SCHEDULED MEDICATIONS, PT TOLERATED WELL. NO OTHER NEEDS AT THIS TIME.
--- NOTE | 2019-03-14 12:11 | NUR ---
03/14/19 RD INITIAL ASSESSMENT COMPLETED PLEASE REFER TO NUTRITION ASSESSMENT UNDER CARE ACTIVITY FOR ESTIMATED NUTRITIONAL NEEDS. 1. CONTINUE CARDIAC DIET WITH 1500 ML FLUID RESTRICTION TOLERATED 2. RD PROVIDED NUTRITION EDUCATION OF CHF AND 1500 ML FLUID RESTRICTION. PATIENT ACCEPTED 3. RD TO FOLLOW-UP 5-7 DAYS, LOW RISK DE GOLD RD
--- NOTE | 2019-03-14 12:55 | NUR ---
INSTRUCTED PT REGARDING 1,500ML/DAY FLUID RESTRICTION, PT NON COMPLIANT. WILL CONTINUE TO MONITOR.
--- NOTE | 2019-03-14 13:58 | NUR ---
ADMINISTERED SCHEDULED SOLU MEDROL, PT TOLERATED WELL. NO OTHER NEEDS AT THIS TIME.
--- NOTE | 2019-03-14 15:55 | NUR ---
VITAL SIGNS TAKEN, PT STABLE. NO OTHER NEEDS AT THIS TIME.
[2019-03-14 16:00] VITALS: BP 126/74
--- NOTE | 2019-03-14 16:30 | NUR ---
PT AMBULATING IN THE HALLWAY WITH STEADY GAIT.
--- NOTE | 2019-03-14 17:25 | NUR ---
ADMINISTERED SCHEDULED MEDICATIONS, PT TOLERATED WELL. NO OTHER NEEDS AT THIS TIME.
--- NOTE | 2019-03-14 19:10 | NUR ---
ENDORSED PT TO RN EDITH FOR CONTINUITY OF CARE. PT STABLE.
--- NOTE | 2019-03-14 19:15 | NUR ---
RECEIVED FROM AM RN IN BED SITTING UP AND WATCHING TV. PRESENTLY HAVING SNACK PROVIDED BY AM RN/JUICE. PT. ABLE TO VERBALIZE NEEDS WELL. NO SOB. DENIES PAIN AT THIS TIME. CARE PLANS FOR THE NIGHT DISCUSSED WITH HIM. CALL LIGHT WITH IN REACH. ENCOURAGED TO CALL FOR ANY HELP HE MAY NEED. "OK" HEPLOCKED.
[2019-03-14 20:00] VITALS: BP 134/81
[2019-03-14] MEDS: QUEtiapine FUMARATE 25 MG TAB PO SCH (22:17)
--- NOTE | 2019-03-14 22:20 | NUR ---
PROVIDED WITH ORANGE JUICE RT REFUSING TO TAKE HIS P.O. MEDICATIONS WITH OUT IT. PROVIDED WITH 240 ML OF ORANGE JUICE. ALL P.O. MEDICATIONS TAKEN AND PT. VERY HAPPY. MORE COMPLIANT RE TAKING MEDICATIONS. ENCOURAGED TO TRY AND GO TO SLEEP . "OK"
--- NOTE | 2019-03-14 23:22 | NUR ---
STILL AWAKE AT THIS TIME WATCHING TV. ENCOURAGED TO GO TO SLEEP. CALL LIGHT WITH IN REACH. ABLE TO VERBALIZE NEEDS WELL WITH CARE GIVERS. IVF SITE TO RIGHT FOREARM INTACT AND WITH GOOD BLOOD RETURN.
--- NOTE | 2019-03-15 01:20 | NUR ---
CHECKED ON PT. AND FOUND SLEEPING WELL . NO RESTLESSNESS. CALL LIGHT WITH IN REACH.
[2019-03-15] MEDS: methylPREDNISolone SS 40 MG/ML VIAL IVP SCH (05:21)
--- NOTE | 2019-03-15 05:28 | NUR ---
PT. AWAKE AT THIS TIME AND ASKING FOR BREAKFAST TIME. WANTING SANDWICHES FOR NOW. REQUESTED OCCUPATIONAL NURSE. PT. WENT BACK TO SLEEP AFTER.
--- NOTE | 2019-03-15 06:45 | NUR ---
WILL ENDORSE TO NEXT RN FOR CONTINUITY OF CARE. SLEEPING BACK AT THIS TIME. NO COMPLAINTS OF ANY PAIN DONE. ROOM AIR WITH GOOD 02 SAT. HEPLOCKED. AMBULATING WELL BY HIMSELF TO RESTROOM. A/O X 4.
--- NOTE | 2019-03-15 07:25 | NUR ---
RECEIVED FROM GROCERY SPECIALIST NURSE AT BEDSIDE FOR CONTINUITY OF CARE. PATIENT SLEEPING, AOX4, RESPIRATIONS EVEN AND UNLABORED ON ROOM AIR. PT. ABLE TO VERBALIZE NEEDS WELL. NO SOB. UPDATED BOARD. IV SITE, PATENT, INTACT, ASYMPATOMATIC, SL. PATIENT ON CONTACT PRECAUTIONS FOR POSITIVE MRSA IN NARES. SAFETY AND ISOLATION PRECAUTIONS IN PLACE, CALL LIGHT WITH IN REACH. WILL CONTINUE TO MONITOR PATIENT.
--- NOTE | 2019-03-15 08:10 | NUR ---
PATIENT EATING BREAKFAST, COMFORTABLY WATCHING TV. NO COMPLAINTS AT THIS TIME. WILL CONTINUE TO MONITOR PATIENT.
--- NOTE | 2019-03-15 08:45 | NUR ---
PATIENT WANDERING OUT OF HIS ROOM. INFORM PATIENT ABOUT DISCHARGE PLAN AND CONTACT PRECAUTIONS, HE VERBALIZED UNDERSTANDING. WILL CONTINUE TO MONITOR PATIENT.
[2019-03-15] MEDS: FUROSEMIDE 40 MG/4 ML VIAL IVP SCH (09:08)
[2019-03-15] MEDS: AZITHROMYCIN 250 MG TAB PO SCH (09:12)
[2019-03-15] MEDS: NICOTINE TRANSD SYS 7 MG/24 HR PATCH TD SCH (09:12)
[2019-03-15] MEDS: MUPIROCIN CA NASAL 2% 1GM TUBE NS SCH (09:13)
[2019-03-15] MEDS: TAMSULOSIN 0.4 MG CAP PO SCH (09:13)
[2019-03-15] MEDS: SPIRONOLACTONE 50 MG TAB PO SCH (09:14)
[2019-03-15] MEDS: FAMOTIDINE 20 MG TAB PO SCH (09:14)
[2019-03-15] MEDS: LACTULOSE 20 GM/30 ML UDC PO SCH (09:15)
[2019-03-15] MEDS: ASPIRIN 81 MG TAB.CHEW PO SCH (09:15)
[2019-03-15] MEDS: LISINOPRIL 5 MG TAB PO SCH (09:15)
[2019-03-15] MEDS: CARVEDILOL 3.125 MG TAB PO SCH (09:15)
--- NOTE | 2019-03-15 09:18 | NUR ---
ORDERED MEDICATIONS GIVEN. PATIENT TOLERATED THEM. STATING, "HURRY UP, I WANNA GET OUT OF HERE". INFORM PATIENT ABOUT DISCHARGE PROCESS AND WAITING FOR PRESCRIPTION FORM DOCTOR. PATIENT VERBALIZED UNDERSTANDING. HEPARIN SQ NOT GIVEN, PATIENT STATING HE IS LEAVING, "NO NEED". IV REMOVED, IV CATHETER INTACT, MINIMAL BLEEDING INTACT. SAFETY AND ISOLATION PRECAUTION IN PLACE, CALL LIGHT WITHIN REACH, WILL CONTINUE TO MONITOR PATIENT.
[2019-03-15] MEDS: CHLORHEXADINE GLUC 2% CLOTH TP SCH (09:20)
--- NOTE | 2019-03-15 09:30 | NUR ---
DISCHARGE INSTRUCTION AND EDUCATION GIVEN. PRESCRIPTION GIVEN. PATIENT SIGNED PAPERWORK AND VERBALIZED UNDERSTANDING ABOUT PRESCRIPTION AND NEED TO FOLLOW UP WITH DOCTOR'S RECOMMENDATIONS AND WITH HIS PCP. PATIENT WILL BE DISCHARGE HOME. ID BANDS CUT. PATIENT CHANGING IN PREPARATION TO BE DISCHARGED HOME. PATIENT AGREED TO TAKE HIS MORNING MEDICATIONS EXCEPT HEPARIN. WILL CONTINUE TO MONITOR PATIENT.
--- NOTE | 2019-03-15 09:55 | NUR ---
PATIENT DISCHARGE FROM FLOOR VIA WHEELCHAIR. PATIENT TOOK ALL HIS BELONGINGS WITH HIM. PATIENT IN STABLE CONDITION.
--- NOTE | 2019-03-16 15:56 | NUR ---
Late Entry 03/12/2019: SOL offered assistance in finding PCP and scheduling a follow up appointment. Patient refused stating that he would like to coordinate his healthcare appointments with his brother. SOL/CM will follow up as needed.
== END 2019-03-15 09:55 | disposition home or self-care (01) | DRG 194 ==
LOC: MED 06:59 → MMU 11:01
PROVIDERS: ADMIT General Practice; ATTEND General Practice
DX: I11.0 Hypertensive heart disease with heart failure (principal); J96.01 Acute respiratory failure with hypoxia; R65.11 Systemic inflammatory response syndrome (SIRS) of non-infectious origin with acute organ dysfunction; I50.43 Acute on chronic combined systolic (congestive) and diastolic (congestive) heart failure; E87.2 Acidosis; F25.9 Schizoaffective disorder, unspecified; J44.0 Chronic obstructive pulmonary disease with (acute) lower respiratory infection; E86.0 Dehydration; F15.10 Other stimulant abuse, uncomplicated; Z88.6 Allergy status to analgesic agent; Z90.49 Acquired absence of other specified parts of digestive tract; Z96.642 Presence of left artificial hip joint; F17.210 Nicotine dependence, cigarettes, uncomplicated; I42.0 Dilated cardiomyopathy; Z79.899 Other long term (current) drug therapy; I27.20 Pulmonary hypertension, unspecified; K72.90 Hepatic failure, unspecified without coma; N40.0 Benign prostatic hyperplasia without lower urinary tract symptoms; R74.0 Nonspecific elevation of levels of transaminase and lactic acid dehydrogenase [LDH]; Z91.19 Patient's noncompliance with other medical treatment and regimen
CPT/HCPCS: 36415; 36600; 71045; 80048; 80053; 80305; 81003; 82140; 82150; 82803; 83036; 83605; 83690; 83735; 83880; 84100; 84134; 84439; 84443; 84484; 85025; 85379; 85610; 85730; 87040; 87081; 93005; 94640; 96365; 96366; 96375; 99285; G0482; J0696; J1644; J1940; J2920; J2930; J3475; J7030; J7042; J7060; J7613; J7620; J7644; Q0092

== ENCOUNTER 2019-05-25 19:19 | Emergency (ER) | payer MEDICARE, MEDICAID ==
[~2019-05-25] VITALS: Ht 193 cm; Wt 80.7 kg
[~2019-05-25 19:19] MED LIST changes: -AZIT250T11 PO; -CEPH500C16 PO; -LACT10CA1 PO
[2019-05-25 19:25] VITALS: BP 129/80
[2019-05-25] MEDS: FUROSEMIDE 40 MG/4 ML VIAL IVP SCH (20:59)
[2019-05-25 21:15] VITALS: BP 131/75
== END 2019-05-25 21:15 | disposition home or self-care (01) ==
LOC: MED 19:19
DX: R06.00 Dyspnea, unspecified (principal); I50.9 Heart failure, unspecified; J44.9 Chronic obstructive pulmonary disease, unspecified; I11.0 Hypertensive heart disease with heart failure; F15.90 Other stimulant use, unspecified, uncomplicated; Z76.0 Encounter for issue of repeat prescription; Z98.890 Other specified postprocedural states; Z79.82 Long term (current) use of aspirin; Z79.899 Other long term (current) drug therapy; Z88.8 Allergy status to other drugs, medicaments and biological substances
CPT/HCPCS: 71045; 93005; 96374; 99283; J1940; Q0092

== ENCOUNTER 2019-08-22 14:48 | Inpatient (IN) | payer MEDICAID, MEDICARE ==
[~2019-08-22] VITALS: Ht 182.9 cm; Wt 88.0 kg
--- NOTE | 2019-08-22 08:10 | NUR ---
RECEIVED PT FROM ED NURSE LASHAUN. PT IS AWAKE, ALERT AND AMBULATORY. PT IS CURRENTLY ON ROOM AIR, BUT IS IN VISIBLE RESPIRATORY DISTRESS. O2 NC PROVIDED, PT SAID HE STARTED TO FEEL BETTER. SKIN IS INTACT, EXCEPT FOR A SMALL ABRASION NOTED ON THE L CHEEK, COVERED WITH A BANDAID. PT'S IV IS IN THE L FA, 20 G. MRSA NARES SWAB TAKEN. CALL LIGHT PROVIDED WITHIN REACH.
[2019-08-22] MEDS ORDERED: methylPREDNISolone SS 125 MG/2 ML VIAL IVP ONE (14:55)
[2019-08-22] MEDS ORDERED: FUROSEMIDE 20 MG/2 ML VIAL IVP ONE (14:55)
[2019-08-22] MEDS ORDERED: NACL 0.9% 500 ML IV SCH (14:55)
--- NOTE | 2019-08-22 14:59 | NUR ---
Patient transferred to bed 7 via wheelchair by tech. RN evaluating patient at bedside.
[2019-08-22] MEDS ORDERED: FAMOTIDINE 20 MG/2 ML VIAL IVP ONE (15:00)
[2019-08-22] MEDS ORDERED: ALBUTEROL SULFATE/IPRATROPIU 3 ML SOL IH ONE (15:00)
[2019-08-22] MEDS ORDERED: diphenhydrAMINE 50 MG/ML VIAL IVP ONE (15:00)
--- NOTE | 2019-08-22 15:00 | NUR ---
Patient being evaluated by physician at bedside.
[2019-08-22 15:04] VITALS: BP 132/88
--- NOTE | 2019-08-22 15:08 | NUR ---
PATIENT PRESENTS TO ED WITH C/O CHEST AND ABDOMINAL PAIN, SOB X2 DAYS, HX OF CHF, COPD. PT IS AAOX4, SOB AND COUGHING NOTED, WHEEZING AND CRACLES LUNG SOUNDS FLO. A-FIB AND PAC'S ON CARDIAC MONTIOR, FLO. LE NON-PITTING EDEMA NOTED, + NAUSEA, GENERALIZED WEAKNESS NOTED, PATIENT STATES PAIN FROM STERNAL CHEST DOWN TO ABDOMEN 8/10 AT THIS TIME; VSS; PATIENT POSITIONED FOR COMFORT; HOB ELEVATED; BEDRAILS UP X2; BED DOWN. ER MD MADE AWARE OF PT STATUS.
--- NOTE | 2019-08-22 15:25 | NUR ---
X-RAY AT BEDSIDE.
--- NOTE | 2019-08-22 15:30 | NUR ---
IV INSERTED TO LEFT AC, 20GA WITH GOOD BLOOD RETURN, LAB [facility] AND PICKED UP BY LAB, MEDICATION GIVEN ORDERED, WILL CONTINUE TO MONITOR.
--- NOTE | 2019-08-22 16:00 | NUR ---
PT IS RESTING IN BED, NO S/S OF DISTRESS, DENIES PAIN, VSS.
[2019-08-22 16:03] LABS: ANION GAP 12.1 (8-16); CARBON DIOXIDE 27.1 mmol/L (21-32); CREATININE 1.2 mg/dL (0.7-1.3); MAGNESIUM 1.9 mg/dL (1.8-2.4); POTASSIUM 3.2 mmol/L (3.5-5.1); PROTHROMBIN TIME 11.5 secs (10.8-13.4)
[2019-08-22 16:08] LABS: ACETONE, SERUM NEGATIVE (NEGATIVE); ALBUMIN 3.2 g/dL (3.4-5.0); TOTAL BILIRUBIN 1.3 mg/dL (0.0-1.0)
[2019-08-22 16:49] LABS: APPEARANCE,URINE CLEAR (CLEAR); BILIRUBIN,URINE NEGATIVE (NEGATIVE); BLOOD, URINE NEGATIVE (NEGATIVE); COLOR,URINE YELLOW (YELLOW); LEUKOCYTE ESTERASE ,URINE NEGATIVE (NEGATIVE); NITRITE, URINE NEGATIVE (NEGATIVE); PH,URINE 6.5 (5.0-9.0); UGLUCOSE NEGATIVE (NEGATIVE)
--- NOTE | 2019-08-22 17:00 | NUR ---
PATIENT IS ASLEEP IN BED, NO S/S OF DISTRESS, VSS, DENIES PAIN, WILL CONTINUE TO MONITOR.
[2019-08-22] MEDS: NACL 0.9% 1,000 ML IV SCH (17:33)
[2019-08-22] MEDS ORDERED: POTASSIUM CHLORIDE 10 MEQ TABER PO ONE (17:35)
[2019-08-22] MEDS ORDERED: ONDANSETRON 4 MG/2 ML VIAL IVP PRN (17:35)
[2019-08-22] MEDS ORDERED: ACETAMINOPHEN 325 MG TAB PO PRN (17:35)
--- NOTE | 2019-08-22 18:05 | NUR ---
Patient admitted to care of DR. AVILA to TELEMETRY room 114. Belongings list completed. Report to LIBBY MOREL AT BEDSIDE, PATIENT VSS, DENIES PAIN AT THIS TIME.
[2019-08-22 18:10] LABS: BASOPHILS % (AUTO) 0.5 % (0.0-2.0); EOSINOPHILS # (AUTO) 0.2 K/uL (0-0.4); EOSINOPHILS % (AUTO) 2.5 % (0.0-4.0); HEMATOCRIT 44.6 % (36-52); LYMPHOCYTES # (AUTO) 1.5 K/uL (2.0-11.5); LYMPHOCYTES % (AUTO) 22.1 % (20.5-51.1); MEAN CORPUSCULAR HEMOGLOBIN 31 pg (27-31); MEAN CORPUSCULAR HGB CONC 31 g/dL (33-37); MEAN CORPUSCULAR VOLUME 98.3 fL (80-94); MONOCYTES # (AUTO) 0.7 K/uL (0.8-1.0); MONOCYTES % (AUTO) 10.6 % (1.7-9.3); NEUTROPHILS # (AUTO) 4.4 K/uL (1.8-7.7); NEUTROPHILS % (AUTO) 64.3 % (42.2-75.2); PLATELET COUNT (AUTO) 209 K/uL (140-450); RED BLOOD CELL COUNT(AUTO) 4.53 MIL/uL (4.20-6.10); RED CELL DISTRIBUTION WIDTH 15.2 % (11.6-13.7); WHITE BLOOD COUNT (AUTO) 6.8 K/uL (4.8-10.8)
--- NOTE | 2019-08-22 18:20 | NUR ---
VS UPON ADMISSION: BP 128/95, HR 106, O2 98%, TEMP 98.4, RR 20
[2019-08-22 18:38] LABS: FREE T4 (FREE THYROXINE) 1.04 ng/dL (0.76-1.46); PHOSPHORUS 2.8 mg/dL (2.5-4.9); THYROID STIMULATING HORMONE 3.54 uIU/mL (0.34-3.74)
--- NOTE | 2019-08-22 18:43 | NUR ---
OBTAINED CONSENT FOR CT ANGIO OF CHEST.
--- NOTE | 2019-08-22 19:02 | NUR ---
SPOKE TO DR GONZALES, ASKED HIM TO CHANGE THE TIME ON THE ONE-TIME DOSE ORDER OF K-DUR, SINCE THE MED WAS ORDERED EARLIER THAN PT'S ARRIVAL ON THE UNIT, AND NOW UNABLE TO TAKE THE MED OUT OF THE OMNICELL WITHOUT AN OVERRIDE. DR GONZALES WILL UPDATE THE ORDER.
--- NOTE | 2019-08-22 19:15 | NUR ---
RECEIVED PT FROM ADRIEL SOUZA PT IS AAOX4 IV ON LEFT FA INFUSING WELL TKO, ON TELEMETRY SR, PT COUGHING WITH DRY COUGH , NOT RESP DISTRESS NOTED AT THIS TIME AT ROOM AIR 02 SAT 99% PT ORIENTED TO THE FLOOR CALL LIGHT WITHIN REACH
[2019-08-22 20:00] VITALS: BP 143/95
--- NOTE | 2019-08-22 20:30 | NUR ---
PT IS TAKEN TO CT ANGIO CHEST CO;NSENT ALREAFY SIGNED
--- NOTE | 2019-08-22 21:00 | NUR ---
INSURANCE POLICY ISSUE CLERK COULD NOT TAKE CT CHEST ANGIO BECAUSE PT WAS IN PANIC ON SOB AND DR ANAND WAS NOTIFY
[2019-08-22] MEDS ORDERED: POTASSIUM CHLORIDE 10 MEQ TABER PO SCH (21:30)
[2019-08-22] MEDS: DOCUSATE SODIUM 100 MG GELCAP PO SCH (22:02)
[2019-08-22] MEDS ORDERED: DEXTROSE 50% 50 ML SYR IVP PRN (23:40)
[2019-08-23] VITALS: BP 147/94
[2019-08-23] MEDS ORDERED: LORazepam 2 MG/ML VIAL IVP SCH
--- NOTE | 2019-08-23 | NUR ---
PT AWAKE, NOT SOB NOTED ON TELEMETRY SR, MEDIC GIVEN ORDER
[2019-08-23 00:16] LABS: BARBITURATE, URINE NEG. ng/ml (NEG <=200); BENZODIAZEPINE, URINE NEG. ng/mL (NEG <=200); CANNABINOID, URINE NEG. ng/mL (NEG <=50); COCAINE, URINE NEG. ng/mL (NEG <=300); OPIATE, URINE NEG. ng/mL (NEG <=2000); PHENCYCLIDINE SCREEN,URINE NEG. ng/mL (NEG <=25)
[2019-08-23 04:00] VITALS: BP 148/90
--- NOTE | 2019-08-23 04:00 | NUR ---
SPONGE BATH GIVEN LINEN CHANGED PT REPOSITIONED NOT DISTRESS NOTED
--- NOTE | 2019-08-23 05:29 | NUR ---
PT SLEEPING WELL ON TELEMETRY SR AND PVC
--- NOTE | 2019-08-23 06:30 | NUR ---
BLOOD SUGAR TEST 156 CO;VERAGE WITH 2 UNITS SUBQ HUMALOG FOLLOW PROTOCOL
[2019-08-23] MEDS: BLOOD GLUCOSE MONITORING 1 DEV DEV FS SCH ×4 (06:41→21:41)
[2019-08-23] MEDS: INSULIN LISPRO SLIDING SCALE 100 UNITS/ML VIAL SUBQ PRN ×3 (06:42→16:38)
--- NOTE | 2019-08-23 06:58 | NUR ---
THE WAVE SOLDER OFFBEARER REMEDIAL READING TEACHER PT FOR CT ANGIO CHEST
[2019-08-23 07:15] LABS: BASOPHILS % (AUTO) 0.1 % (0.0-2.0); HEMATOCRIT 38.5 % (36-52); HEMOGLOBIN 12.2 g/dL (12.0-18.0); LYMPHOCYTES # (AUTO) 0.5 K/uL (2.0-11.5); LYMPHOCYTES % (AUTO) 8.3 % (20.5-51.1); MEAN CORPUSCULAR HEMOGLOBIN 31 pg (27-31); MEAN CORPUSCULAR HGB CONC 32 g/dL (33-37); MEAN CORPUSCULAR VOLUME 97.1 fL (80-94); MONOCYTES # (AUTO) 0.1 K/uL (0.8-1.0); MONOCYTES % (AUTO) 1.3 % (1.7-9.3); NEUTROPHILS # (AUTO) 4.9 K/uL (1.8-7.7); NEUTROPHILS % (AUTO) 90.3 % (42.2-75.2); PLATELET COUNT (AUTO) 187 K/uL (140-450); RED BLOOD CELL COUNT(AUTO) 3.96 MIL/uL (4.20-6.10); RED CELL DISTRIBUTION WIDTH 15.1 % (11.6-13.7); WHITE BLOOD COUNT (AUTO) 5.4 K/uL (4.8-10.8)
[2019-08-23] MEDS: ALBUTEROL SULFATE/IPRATROPIU 3 ML SOL IH SCH ×3 (07:17→19:14)
[2019-08-23 07:25] LABS: ANION GAP 13.3 (8-16); POTASSIUM 3.3 mmol/L (3.5-5.1)
--- NOTE | 2019-08-23 07:30 | NUR ---
RECEIVED PT REPORT FROM SALES TEAM LEADER RNMERA. PT IS AAOX4, NO S/S OF ACUTE DISTRESS ON ROOM AIR. IV CATH ON LEFT FA 20G, INFUSING WELL, ASYMPTOMATIC. ON TELE. BED LOCKED IN LOWEST POSITION, BED ALARM ON, CALL LIGHT WITHIN REACH
[2019-08-23 08:00] VITALS: BP 133/91
[2019-08-23 08:03] LABS: CHOL/HDL RATIO 3.6 (1-4.5); MAGNESIUM 1.9 mg/dL (1.8-2.4); PHOSPHORUS 2.4 mg/dL (2.5-4.9)
[2019-08-23] MEDS: FUROSEMIDE 40 MG/4 ML VIAL IVP SCH ×2 (08:47→16:33)
[2019-08-23] MEDS: NICOTINE TRANSD SYS 14 MG/24 HR PATCH TD SCH (08:47)
[2019-08-23] MEDS: CARVEDILOL 3.125 MG TAB PO SCH ×2 (08:48→21:36)
[2019-08-23] MEDS: ASPIRIN 81 MG TAB.CHEW PO SCH (08:48)
[2019-08-23] MEDS: DOCUSATE SODIUM 100 MG GELCAP PO SCH ×2 (08:48→21:35)
[2019-08-23] MEDS: SPIRONOLACTONE 50 MG TAB PO SCH (08:49)
[2019-08-23] MEDS: LISINOPRIL 5 MG TAB PO SCH (08:49)
[2019-08-23] MEDS: FAMOTIDINE 20 MG TAB PO SCH ×2 (08:49→21:35)
[2019-08-23] MEDS ORDERED: NON-FORMULARY ITEM (Fluticasone/Salmeterol* (Advair 250-50 Diskus*) 1 PUFF) IH SCH (09:00)
--- NOTE | 2019-08-23 11:00 | NUR ---
PT REQUESTED EXTRA FOOD. EXPLAIN TO PT HIS DIET IS MONITOR BY OUR PHYSICAL CHEMIST. HE NEED TO EAT LOW NA AND LOW SUGAR DIET. PT STILL REQUESTING EXTRA FOOD. MADE DR LEBLANC AWARE. DR LEBLANC IS OK WITH PT RECEIVED EXTRA SANDWICH.
[2019-08-23 12:00] VITALS: BP 147/97
[2019-08-23] MEDS ORDERED: POTASSIUM CHLORIDE 40 MEQ, LIDOCAINE MPF 1% 25 MG in NACL 0.9% 250 ML IV ONE (12:00)
[2019-08-23] MEDS: SODIUM PHOS / POTASSIUM PHOS 1 PKT PDR PO SCH ×2 (12:23→16:33)
[2019-08-23 16:00] VITALS: BP 122/72
--- NOTE | 2019-08-23 16:30 | NUR ---
TOLD PT THAT HE NEEDS TO CONTACT HIS FRIEND OR FAMILY TO BRING HIS ADVAIR FROM HOME BECAUSE OUR [facility] DOESN'T HAVE IT. PT SAID HIS GIRL FRIEND CAN BRING IT BUT HE DOES NOT HAVE HER NUMBER, BUT SHE WILL COME AND VISIT SOMETIMES. ASKED IF HIS BROTHER MELODY CAN BRING IT. PT SAID MELODY CAN NOT GET HIS MED.
[2019-08-23] MEDS: NACL 0.9% 1,000 ML IV SCH (16:44)
--- NOTE | 2019-08-23 18:00 | NUR ---
PT'S FRIEND ANJU CALLED, ASKED HER TO BRING AMINA. SHE SAID WILL BRING IT TOMORROW. ANJU #[phone]
--- NOTE | 2019-08-23 18:05 | NUR ---
PT SPOKE WITH HIS FRIEND ANJU OVER THE PHONE. NO DISTRESS NOTED.
--- NOTE | 2019-08-23 19:30 | NUR ---
RECEIVED REPORT FROM DAYSHIFT NURSE AT PATIENTS BEDSIDE, PATIENT IS ALERT AND ORIENTED X4. MAKES NEEDS KNOWN, FOLLOWS COMMANDS. PATIENT IS ON ROOM AIR WITH SATURATIONS AT 98%. NO SIGNS OF SOB, C/O COUGH, NONPRODUCTIVE. LUNG SOUNDS ARE DIMINISHED. S1S2, SLIGHTLY TACHYCARDIC-HEART RATE 100-101. ALL OTHER VITAL SIGNS STABLE. SKIN IS WARM AND DRY, AFEBRILE. PERIPHERAL IV TO LEFT FOREARM 20G, FLUSHED AND PATENT WITHOUT SYMPTOMS, SALINE LOCKED. ABDOMEN IS LARGE AND TENDER TO TOUCH AT LEFT LOWER QUADRANT. BOWEL SOUNDS ARE ACTIVE, PATIENT COMPLAINS OF HAVING REGULAR BOWEL MOVEMENTS BUT STILL FEELS CONSTIPATED. PATIENT IS CONTINENT, URINAL AT BEDSIDE, CLEAR YELLOW URINE NOTED. URINAL EMPTIED WITH 500 ML OUTPUT. BED IS LOCKED AND IN LOWEST POSITION, HOB HIGH FOWLERS FOR PATIENTS COMFORT. UPDATED ON CARE PLAN, CALL LIGHT WITHIN REACH. WILL CONTINUE TO MONITOR.
[2019-08-23 20:00] VITALS: BP 131/86
--- NOTE | 2019-08-23 21:10 | NUR ---
SCHEDULED MEDICATIONS ADMINISTERED. EDUCATION ON INDICATIONS AND SIDE EFFECTS FOR EACH MEDICATION PROVIDED, PATIENT VERBALIZED UNDERSTANDING. ACCUCHECK COMPLETE, BLOOD SUGAR 129, NO COVERAGE NEEDED. ALL NEEDS MET AT THIS TIME.
[2019-08-23] MEDS: QUEtiapine FUMARATE 25 MG TAB PO SCH (21:36)
--- NOTE | 2019-08-23 22:25 | NUR ---
PATIENT CALLING NURSES STATION FOR COUGH MEDICATIONS. RN WENT TO ROOM AND PT ASKED TO HAVE A FEW MORE JUICE BOXES, EXPLAINED TO PATIENT THE FLUID RESTRICTIONS ORDERED. PATIENT VERBALIZES UNDERSTANDING, ASSESSED COUGH, PATIENT STATES HE IS FINE.
[2019-08-24] VITALS (7 sets, daily range): BP systolic 108–151; BP diastolic 58–95
--- NOTE | 2019-08-24 00:30 | NUR ---
FLU SWAB OBTAINED, EXPLAINED PROCEDURE TO PATIENT, VERBALIZES UNDERSTANDING. WALKED TO LAB. PATIENT SITTING UPRIGHT, EYES CLOSED, RESTING COMFORTABLY. NO SIGNS/SYMPTOMS OF SOB OR DISTRESS. SINUS TACH ON MONITOR. NO COMPLAINTS AT THIS TIME.
--- NOTE | 2019-08-24 02:05 | NUR ---
PATIENT SLEEPING SITTING UP, NO SIGNS OF DISTRESS OR SOB. PATIENT SNORING LOUDLY. ON ROOM AIR, CALL LIGHT AND URINAL WITHIN REACH. FLACC 0. SAFETY ALARMS IN PLACE.
--- NOTE | 2019-08-24 04:05 | NUR ---
PATIENT RESTING WELL. FLACC 0, EYES CLOSED. EMPTIED URINAL, 200ML OUTPUT, CLEAR YELLOW URINE. SAFETY ALARMS IN PLACE, CALL LIGHT WITHIN REACH, HOB HIGH FOWLERS.
[2019-08-24] MEDS: BLOOD GLUCOSE MONITORING 1 DEV DEV FS SCH ×4 (06:37→20:58)
--- NOTE | 2019-08-24 06:38 | NUR ---
PATIENT CALLING NURSES STATION, RN IN TO CHECK IN ON PATIENT. PATIENT SITTING UP AT SIDE OF BED, STATES HE NEEDS FRESH AIR. ORIENTED PATIENT TO TRIPOD POSITION TO HELP WITH BREATHING. RESIDENT MD AT BEDSIDE TO ASSESS PATIENT. BLOOD SUGAR CHECKED, 118. NO COVERAGE NEEDED.
[2019-08-24] MEDS: ALBUTEROL SULFATE/IPRATROPIU 3 ML SOL IH SCH ×3 (07:09→19:58)
--- NOTE | 2019-08-24 07:20 | NUR ---
TOLERATED INCENTIVE SPIROMETRY THERAPY WELL WITHOUT ADVERSE REACTIONS NOTED ENCOURAGED PATIENT TO USE INCENTIVE SPIROMETRY EVERY 1-2 HOURS WHILE AWAKE
--- NOTE | 2019-08-24 07:25 | NUR ---
RECEIVED REPORT FROM NIGHT RN. PATIENT IS SITTING UP IN BED, FULL CODE, ALLERGIES TO IBUPROFEN. PATIENT HAS A LEFT AC 20G SALINE LOCK. URINAL IS AT BEDSIDE, AMBULATORY, AAOX4. PT IS ON FLUID RESTRICTION TO 1.5L/DAY. WILL CONTINUE WITH PLAN OF CARE FOR THE DAY.
[2019-08-24] MEDS: SODIUM PHOS / POTASSIUM PHOS 1 PKT PDR PO SCH ×3 (07:30→16:34)
[2019-08-24 07:45] LABS: BASOPHILS % (AUTO) 0.1 % (0.0-2.0); EOSINOPHILS % (AUTO) 0.2 % (0.0-4.0); HEMATOCRIT 41.2 % (36-52); HEMOGLOBIN 13.1 g/dL (12.0-18.0); MEAN CORPUSCULAR HEMOGLOBIN 31 pg (27-31); MEAN CORPUSCULAR HGB CONC 32 g/dL (33-37); MEAN CORPUSCULAR VOLUME 97.1 fL (80-94); MONOCYTES # (AUTO) 0.9 K/uL (0.8-1.0); MONOCYTES % (AUTO) 6.8 % (1.7-9.3); NEUTROPHILS # (AUTO) 10.4 K/uL (1.8-7.7); NEUTROPHILS % (AUTO) 77.9 % (42.2-75.2); PLATELET COUNT (AUTO) 195 K/uL (140-450); RED BLOOD CELL COUNT(AUTO) 4.24 MIL/uL (4.20-6.10); RED CELL DISTRIBUTION WIDTH 15.9 % (11.6-13.7); WHITE BLOOD COUNT (AUTO) 13.4 K/uL (4.8-10.8)
[2019-08-24 08:36] LABS: ANION GAP 12.2 (8-16); CARBON DIOXIDE 23.9 mmol/L (21-32); CREATININE 1.3 mg/dL (0.7-1.3); POTASSIUM 4.1 mmol/L (3.5-5.1)
[2019-08-24 08:39] LABS: PHOSPHORUS 3.8 mg/dL (2.5-4.9)
--- NOTE | 2019-08-24 09:04 | NUR ---
DC PLANNIN YRS OLD MALE PATIENT WAS ADMITTED FROM HOME WITH A DX OF COPD EXACERBATION. PT HAS A HX OF COPD, CHF,DM, HTN , METH ABUSE,SCHIZOPHRENIA AND INSOMNIA. EKG SHOWED NSR WITHOUT EVIDENCE OF STEMI CXR BORDER LINE CARDIOMEGALY . CARDIOLOGY AND PULMO CONSULTED ,ORDERED ECHO, ADMINISTERED IV LASIX . DC PLAN TO GO HOME WHEN STABLE .CM TO FOLLOW
[2019-08-24] MEDS: ASPIRIN 81 MG TAB.CHEW PO SCH (09:08)
[2019-08-24] MEDS: CARVEDILOL 3.125 MG TAB PO SCH ×2 (09:09→20:51)
[2019-08-24] MEDS: LISINOPRIL 5 MG TAB PO SCH (09:09)
[2019-08-24] MEDS: SPIRONOLACTONE 50 MG TAB PO SCH (09:09)
--- NOTE | 2019-08-24 09:09 | NUR ---
PATIENT HAS BEEN SCREENED AND CATEGORIZED MODERATE NUTRITION RISK. PATIENT WILL BE SEEN WITHIN 3-5 DAYS OF ADMISSION. 08/25/19 08/27/[address]
[2019-08-24] MEDS: FUROSEMIDE 40 MG/4 ML VIAL IVP SCH ×2 (09:10→16:34)
[2019-08-24] MEDS: DOCUSATE SODIUM 100 MG GELCAP PO SCH ×2 (09:10→20:48)
[2019-08-24] MEDS: FAMOTIDINE 20 MG TAB PO SCH ×2 (09:10→20:48)
[2019-08-24] MEDS: NICOTINE TRANSD SYS 14 MG/24 HR PATCH TD SCH (09:25)
[2019-08-24] MEDS: ALBUTEROL SULFATE/IPRATROPIU 3 ML SOL IH PRN (09:56)
--- NOTE | 2019-08-24 11:23 | NUR ---
PATIENT IS REPORTED POSITIVE POSITIVE MRSA TO [facility]. PATIENT IS ON CONTACT PRECAUTIONS
--- NOTE | 2019-08-24 11:45 | NUR ---
Chief Building Inspector Note: Basic Screen: Yes High Risk DC Screen [place]: MELODY SMITH Home Relationship: BROTHER Pre-Admission Living Arrangements: Lives Alone Prior ADL Independent Current Home Health Name/Tel: N/A Current DME/02 Name/Tel: N/A Current Hospice Name/Tel: N/A Current Dialysis Name/Tel: N/A Healthcare Decision Maker: Patient Advance Directive No - REFUSED Information Taught: Advance Directive Person Taught: Patient Teaching Tools: Verbal Factors Affecting Learning: None Participation Level: Refused Evaluation: No Indication of Learning Needs Additional Education: No Discipline: Case Mgt/Social Svcs Tentative Discharge Plan/Destination: No Needs Identified Will require assistance post discharge: No Referred to Triage Specialist: No Tentative Discharge Plan Summary: Patient is a 68-year-old male admitted for COPD exacerbation. Patient has PMHX of HTN, DM, CHF, COPD, insomnia, severe pulmonary HTN, and GERD. Patient was admitted from home. SW met with patient at bedside to verify demographics. Patient reports a mental health history of schizophrenia. Patient stated that he has a history of methamphetamine use, but denies any substance current substance abuse. SW offered patient mental health resources, but patient refused. Patient's tentative discharge plan is to return home. No further needs identified. Signature: ELVIS Noel Date: Aug 24, 2019 Time: 11:44
--- NOTE | 2019-08-24 11:55 | NUR ---
BLOOD SUGAR OF 92, NO INSULIN COVERAGE NEEDED. PATIENT IS IN CHAIR AT BEDSIDE, NO COMPLAINTS AT THIS TIME.
--- NOTE | 2019-08-24 13:30 | NUR ---
PATIENT RESTING QUIETLY IN BED, NO COMPLAINTS AT THIS TIME.
--- NOTE | 2019-08-24 14:30 | NUR ---
PATIENT C/O DIFFICULTY BREATHING, HR IN 140s. RT MADE AWARE, BUT WAS TOLD DUONEB WILL INCREASE HR MORE. BLOOD SUGAR OF 113, NO INSULIN REQUIRED.
--- NOTE | 2019-08-24 14:45 | NUR ---
PATIENT HAS BEEN MOVED TO ROOM 118.
[2019-08-24] MEDS: NACL 0.9% 1,000 ML IV SCH (17:33)
--- NOTE | 2019-08-24 18:37 | NUR ---
PATIENT IS SLEEPING, VISIBLE CHEST RISE AND FALL, NO DISTRESS NOTED. ALL NEEDS HAVE BEEN MET, WILL ENDORSE TO NEXT SHIFT FOR CONTINUITY OF CARE
--- NOTE | 2019-08-24 19:29 | NUR ---
RECEIVED FROM AM RN IN BED SITTING UP AND WATCHING TV. ABLE TO VERBALIZE NEEDS WELL IN [place] AND ABLE TO CARRY A CONVERSATION WELL WITH US. NO SOB. DENIES ANY PAIN ATQ THIS TIME. CALL LIGHT WITH IN REACH. TELEMETRY MONITORING. EDUCATED RE DX. AND THAT HE IS IN LIQUID RESTRICTION OF 1.5 ML. A/O X 4. ROM X 4.
[2019-08-24] MEDS: BUDESONIDE 0.5 MG/2 ML NEBU INH SCH (19:58)
--- NOTE | 2019-08-24 20:20 | NUR ---
RECEIVED PATIENT ON ROOM AIR, PULSE OX SAT 99%. SCHEDULED BREATHING TREATMENTS ADMINISTERED. TOLERATED TXs WELL WITHOUT ADVERSE SIDE EFFECTS. ORAL RINSE DONE POST TX. FOLLOW-UP EDUCATION ON USE OF INCENTIVE SPIROMETER DONE. PATIENT PERFORMED RETURN DEMONSTRATION WITH EXCELLENT EFFORT. NO ACUTE RESPIRATORY DISTRESS NOTED AT THIS TIME. WILL CONTINUE TO MONITOR.
[2019-08-24] MEDS: QUEtiapine FUMARATE 25 MG TAB PO SCH (20:48)
--- NOTE | 2019-08-24 23:58 | NUR ---
SLEEPING. WOKE UP EASILY WHEN VITAL SIGNS TAKEN. NO COMPLAINTS DONE. WENT BACK TO SLEEP.
--- NOTE | 2019-08-25 01:50 | NUR ---
SLEEPING. NO RESTLESSNESS NOTED. CALL LIGHT WITH IN REACH. NO SOB. TELEMETRY MONITORING.
[2019-08-25 04:50] VITALS: BP 134/68
[2019-08-25] MEDS: BLOOD GLUCOSE MONITORING 1 DEV DEV FS SCH ×4 (05:12→21:07)
[2019-08-25] MEDS: ALBUTEROL SULFATE/IPRATROPIU 3 ML SOL IH SCH ×3 (05:25→18:00)
--- NOTE | 2019-08-25 05:58 | NUR ---
AWAKE AT THIS TIME. BREATHING TREATMENTS DONE BY RESPIRATORY THERAPIST . PROVIDED WITH JELLO REQUESTED BY PT. FELT BETTER AFTER BREATHING TREATMENT PROVIDE. VERBALIZES NEEDS WELL.
[2019-08-25] MEDS: SODIUM PHOS / POTASSIUM PHOS 1 PKT PDR PO SCH ×3 (06:21→17:38)
[2019-08-25 07:19] LABS: ANION GAP 14.9 (8-16); CARBON DIOXIDE 28.6 mmol/L (21-32); CREATININE 1.1 mg/dL (0.7-1.3); POTASSIUM 4.5 mmol/L (3.5-5.1)
[2019-08-25 07:21] LABS: BASOPHILS % (AUTO) 0.2 % (0.0-2.0); EOSINOPHILS # (AUTO) 0.2 K/uL (0-0.4); EOSINOPHILS % (AUTO) 1.9 % (0.0-4.0); HEMATOCRIT 41.4 % (36-52); HEMOGLOBIN 13.3 g/dL (12.0-18.0); LYMPHOCYTES % (AUTO) 22.3 % (20.5-51.1); MEAN CORPUSCULAR HEMOGLOBIN 31 pg (27-31); MEAN CORPUSCULAR HGB CONC 32 g/dL (33-37); MEAN CORPUSCULAR VOLUME 96.8 fL (80-94); MONOCYTES # (AUTO) 0.6 K/uL (0.8-1.0); MONOCYTES % (AUTO) 6.8 % (1.7-9.3); NEUTROPHILS # (AUTO) 6.1 K/uL (1.8-7.7); NEUTROPHILS % (AUTO) 68.8 % (42.2-75.2); PLATELET COUNT (AUTO) 200 K/uL (140-450); RED BLOOD CELL COUNT(AUTO) 4.28 MIL/uL (4.20-6.10); RED CELL DISTRIBUTION WIDTH 15.2 % (11.6-13.7); WHITE BLOOD COUNT (AUTO) 8.9 K/uL (4.8-10.8)
[2019-08-25 07:29] LABS: MAGNESIUM 1.9 mg/dL (1.8-2.4); PHOSPHORUS 4.4 mg/dL (2.5-4.9)
--- NOTE | 2019-08-25 07:29 | NUR ---
RECEIVED BEDSIDE REPORT FROM PM RN PT APPEARS STABLE AND IN NO APPARENT DISTRESS. ALL SAFETY MEASURES ARE IN PLACE WILL CONTINUE TO MONITOR.
[2019-08-25 08:05] VITALS: BP 110/70
[2019-08-25] MEDS: BUDESONIDE 0.5 MG/2 ML NEBU INH SCH ×2 (08:18→19:30)
--- NOTE | 2019-08-25 08:45 | NUR ---
OFFERED PT HIS NICOTINE PATCH, PT STATED YES HE WOULD LIKE IT. OPENED NICOTINE PATCH WENT TO PLACE ON PATIENT PT STATED HE DIDNT WANT IT. PLACED IN [facility] RETURN
[2019-08-25] MEDS: FUROSEMIDE 40 MG/4 ML VIAL IVP SCH ×2 (08:46→17:38)
[2019-08-25] MEDS: FAMOTIDINE 20 MG TAB PO SCH ×2 (08:46→21:09)
[2019-08-25] MEDS: CARVEDILOL 3.125 MG TAB PO SCH ×2 (08:46→21:08)
[2019-08-25] MEDS: DOCUSATE SODIUM 100 MG GELCAP PO SCH ×2 (08:47→21:08)
[2019-08-25] MEDS: SPIRONOLACTONE 50 MG TAB PO SCH (08:47)
[2019-08-25] MEDS: ASPIRIN 81 MG TAB.CHEW PO SCH (08:47)
[2019-08-25] MEDS: LISINOPRIL 5 MG TAB PO SCH (08:48)
[2019-08-25] MEDS: NICOTINE TRANSD SYS 14 MG/24 HR PATCH TD SCH ×2 (08:48→08:58)
--- NOTE | 2019-08-25 09:15 | NUR ---
FREQUENT ROUNDING ON PT PT APPEARS STABLE AND IN NO APPARENT DISTRESS. ALL SAFETY MEASURES ARE IN PLACE WILL CONTINUE TO MONITOR.
[2019-08-25] MEDS: MUPIROCIN CA NASAL 2% 1GM TUBE NS SCH (09:23)
[2019-08-25] MEDS: CHLORHEXADINE GLUC 2% CLOTH TP SCH (09:23)
[2019-08-25] MEDS: ALBUTEROL SULFATE/IPRATROPIU 3 ML SOL IH PRN (09:27)
--- NOTE | 2019-08-25 11:48 | NUR ---
FREQUENT ROUNDING ON PT PT APPEARS STABLE AND IN NO APPARENT DISTRESS. ALL SAFETY MEASURES ARE IN PLACE WILL CONTINUE TO MONITOR. PT IS ON TELE MONITORING.
--- NOTE | 2019-08-25 12:05 | NUR ---
FINGERSTICK GLUCOSE 90. NO COVERAGE NEEDED
[2019-08-25 12:15] VITALS: BP 120/64
[2019-08-25] MEDS ORDERED: guaiFENesin DM 200/20 MG-10 ML 10 ML UDC PO PRN (13:45)
[2019-08-25] MEDS ORDERED: guaiFENesin DM 200/20 MG-10 ML 10 ML UDC PO SCH (13:47)
--- NOTE | 2019-08-25 15:30 | NUR ---
FOLLOWED UP WITH DR. LEBLANC STATED WE WILL NOT BE DISCHARGING THE PATIENT TODAY WAITING ON STAT CHEST XRAY
--- NOTE | 2019-08-25 15:41 | NUR ---
FREQUENT ROUNDING ON PT PT APPEARS STABLE AND IN NO APPARENT DISTRESS ALL SAFETY MEASURES ARE IN PLACE WILL CONTNUE TO MONITOR
[2019-08-25 16:05] VITALS: BP 111/66
--- NOTE | 2019-08-25 16:28 | NUR ---
PT HAD 4 PILL BOTTLES AT BEDSIDE. TOOK THEM TO PHARMACY. PT STATED HIS BROUGHT THEM BECAUSE THE DOCTOR WANTED TO KNOW HIS HOME MEDICATIONS.
[2019-08-25] MEDS ORDERED: FURO40TA9 PO (16:33)
--- NOTE | 2019-08-25 17:15 | NUR ---
FINGERSTICK GLUCOSE 66 PT ASYMPTOMATIC PT IS AWAKE IN BED ALERT AND ORIENTED X4. ADMINISTERED APPLE JUICE DINNER TRAY SHOULD BE HERE SHORTLY WILL CONTINUE TO MONITOR PT FOR SIGNS AND SYMPTOMS OF HYPOGLYCEMIA
[2019-08-25] MEDS: NACL 0.9% 1,000 ML IV SCH (17:33)
[2019-08-25] MEDS: methylPREDNISolone SS 40 MG/ML VIAL IVP SCH (17:37)
--- NOTE | 2019-08-25 19:16 | NUR ---
RECIEVED PT .AAOX4 , NID - O2 SAT - WNL , ON RA . IV SITE INTACT AND PATENT . NO COMPLAIN MADE AT THIS TIME. AMBULATORY WITH STAND BY ASSIST - REMINDS HIM THE USE OF CALL LIGHT WHENEVER HE NEEDS HELP / ASSISTANCE MOST ESPECIALLY IF HE WANTS TO GO TO RESTROOM - CALL LIGHT / URINAL WITHIN REACH. POC DISCUSSED AND VERBALIZED UNDERSTANDING. THER IS VERY SMALL SUPERFICIALLY ABRASSION ON THE FACE .WILL CONT . TO MONITOR.
--- NOTE | 2019-08-25 19:16 | NUR ---
ENDORSED PT TO PM RN PT AWAKE SITTING IN CHAIR PT IS ON TELE MONITORING. PT IV SITE PATENT AND SHOWS NO SIGNS OF INFILTRATION OR INFLAMMATION ALL SAFETY MEASURES ARE IN PLACE
[2019-08-25 20:00] VITALS: BP 122/72
[2019-08-25] MEDS ORDERED: FUROSEMIDE 40 MG TAB PO SCH (21:00)
[2019-08-25] MEDS: QUEtiapine FUMARATE 25 MG TAB PO SCH (21:09)
--- NOTE | 2019-08-25 22:00 | NUR ---
MADE ROUNDS . NO COMPLAIN MADE AT THIS TIME .CALL LIGHT WITHIN REACH.
--- NOTE | 2019-08-25 23:00 | NUR ---
CLARIFYING TO MARCELINO ABOUT ORDERED FUROSEMIDE TABLET , SINCE PT HAVE EXISTING FUROSEMIDE TIV. MARCELINO SAID SHE WILL REVISE THE ORDER.
[2019-08-26] VITALS: BP 111/70
--- NOTE | 2019-08-26 | NUR ---
MADE ROUNDS . RESP . EVEN AND UNLABORED . WILLCONT . TO MONITOR . CALL LIGHT WITHIN REACH.
[2019-08-26] MEDS: methylPREDNISolone SS 40 MG/ML VIAL IVP SCH ×3 (00:30→12:16)
[2019-08-26] MEDS: ALBUTEROL SULFATE/IPRATROPIU 3 ML SOL IH SCH ×2 (01:54→07:49)
[2019-08-26 04:00] VITALS: BP 122/79
--- NOTE | 2019-08-26 04:00 | NUR ---
MADE ROUNDS . NO COMPLAIN MADE . NO SIGNS OF ACUTE DISTRESS NOTED AT THIS TIME - CALL LIGHT W/IN REACH.
[2019-08-26] MEDS: SODIUM PHOS / POTASSIUM PHOS 1 PKT PDR PO SCH ×2 (05:59→12:15)
--- NOTE | 2019-08-26 06:00 | NUR ---
MAGGIE ELLINGTON , NO S/SXS OF ACUTE DISTRESS NOTED AT THIS TIME.
[2019-08-26] MEDS: BLOOD GLUCOSE MONITORING 1 DEV DEV FS SCH ×2 (06:35→12:25)
[2019-08-26] MEDS: INSULIN LISPRO SLIDING SCALE 100 UNITS/ML VIAL SUBQ PRN ×2 (06:40→12:29)
[2019-08-26 06:59] LABS: ANION GAP 15.4 (8-16); CARBON DIOXIDE 24.9 mmol/L (21-32); CREATININE 1.1 mg/dL (0.7-1.3); POTASSIUM 4.3 mmol/L (3.5-5.1)
[2019-08-26 07:07] LABS: BASOPHILS % (AUTO) 0.1 % (0.0-2.0); HEMATOCRIT 38.9 % (36-52); HEMOGLOBIN 12.5 g/dL (12.0-18.0); LYMPHOCYTES # (AUTO) 0.6 K/uL (2.0-11.5); LYMPHOCYTES % (AUTO) 6.8 % (20.5-51.1); MEAN CORPUSCULAR HEMOGLOBIN 31 pg (27-31); MEAN CORPUSCULAR HGB CONC 32 g/dL (33-37); MEAN CORPUSCULAR VOLUME 96.4 fL (80-94); MONOCYTES # (AUTO) 0.2 K/uL (0.8-1.0); MONOCYTES % (AUTO) 2.2 % (1.7-9.3); NEUTROPHILS # (AUTO) 7.5 K/uL (1.8-7.7); NEUTROPHILS % (AUTO) 90.9 % (42.2-75.2); PLATELET COUNT (AUTO) 186 K/uL (140-450); RED BLOOD CELL COUNT(AUTO) 4.03 MIL/uL (4.20-6.10); RED CELL DISTRIBUTION WIDTH 15.1 % (11.6-13.7); WHITE BLOOD COUNT (AUTO) 8.3 K/uL (4.8-10.8)
--- NOTE | 2019-08-26 07:15 | NUR ---
ENDORSED TO AM SHIFT FOR CONT. OF CARE . WITH STABLE CONDITION.
--- NOTE | 2019-08-26 07:15 | NUR ---
RECEIVED BED SIDE REPORT FROM ENGINEERING SPECIALIST TECHNICIAN NURSE, PATIENT IS IN STABLE CONDITION. WILL CONTINUE TO MONITOR
[2019-08-26] MEDS: BUDESONIDE 0.5 MG/2 ML NEBU INH SCH (07:49)
[2019-08-26 08:00] VITALS: BP 136/88
--- NOTE | 2019-08-26 09:15 | NUR ---
SCHEDULED MEDICATIONS GIVEN AT THIS TIME, NO DISTRESS NOTED. PATIENT LAYING IN BED COMFORTABLY WATCHING TV. ACKNOWLEDGED DISCHARGED ORDERS FROM DR AVILA, WILL BEGIN THE DISCHARGE PROCESS FOR PATIENT.
[2019-08-26] MEDS: MUPIROCIN CA NASAL 2% 1GM TUBE NS SCH (09:51)
[2019-08-26] MEDS: LISINOPRIL 5 MG TAB PO SCH (09:51)
[2019-08-26] MEDS: DOCUSATE SODIUM 100 MG GELCAP PO SCH (09:52)
[2019-08-26] MEDS: ASPIRIN 81 MG TAB.CHEW PO SCH (09:52)
[2019-08-26] MEDS: SPIRONOLACTONE 50 MG TAB PO SCH (09:52)
[2019-08-26] MEDS: FAMOTIDINE 20 MG TAB PO SCH (09:52)
[2019-08-26] MEDS: FUROSEMIDE 40 MG/4 ML VIAL IVP SCH (09:53)
[2019-08-26] MEDS: NICOTINE TRANSD SYS 14 MG/24 HR PATCH TD SCH (09:54)
[2019-08-26] MEDS: CHLORHEXADINE GLUC 2% CLOTH TP SCH (09:58)
[2019-08-26] MEDS: CARVEDILOL 3.125 MG TAB PO SCH (09:58)
[2019-08-26] MEDS ORDERED: METH4TAB1 PO ×2 (10:39→10:47)
[2019-08-26 12:00] VITALS: BP 141/90
--- NOTE | 2019-08-26 12:15 | NUR ---
AT THE BED SIDE WITH PATIENT FOR GLUCOSE MONITORING, INSULIN WILL BE GIVEN FOR 166 GLUCOSE. NO RESPIRATORY DISTRESS NOTED, PATIENT INQUIRING ON WHEN HE WILL BE GETTING DISCHARGED ADVISED PATIENT, I WILL BE FINISHING UP PAPERWORK NOW. PATIENT WILL BE DISCHARGE TO HOME, GIRLFRIEND AT THE BED SIDE FOR TRANSPORTING PATIENT.
--- NOTE | 2019-08-26 13:30 | NUR ---
PATIENT EDUCATED ON DISCHARGE INSTRUCTIONS AND PLAN OF CARE, PAPERWORK SIGNED BY PATIENT, ALL QUESTIONS WERE ANSWERED, PATIENT VERBALIZED UNDERSTANDING. CURRENTLY STABLE, PATIENT AT-HOME MEDICATIONS WILL BE PICKED UP FROM THE PHARMACY. ALL BELONGINGS ARE WITH PATIENT. PATIENT IS TO GET DRESS FOR DISCHARGE.
--- NOTE | 2019-08-26 14:00 | NUR ---
AT THE BEDSIDE WITH PATIENT, BELONGINGS WITH PATIENT, HAND WRITTEN MEDICATION RX HANDED TO PATIENT, ALONG WITH HIS PAPERWORK. PATIENT IV DISCONTINUED WITH LUMEN INTACT, NO SWELLING OR REDNESS NOTED. ID BAND REMOVED FROM PATIENT. PATIENT ESCORTED TO THE LOBBY VIA WHEELCHAIR AND WAS DISCHARGED AT THIS TIME.
== END 2019-08-26 14:00 | disposition home or self-care (01) | DRG 194 ==
LOC: MED 14:48 → MTU 17:46
PROVIDERS: ADMIT General Practice; ATTEND General Practice
DX: I11.0 Hypertensive heart disease with heart failure (principal); I27.20 Pulmonary hypertension, unspecified; F20.9 Schizophrenia, unspecified; I42.9 Cardiomyopathy, unspecified; J44.1 Chronic obstructive pulmonary disease with (acute) exacerbation; E83.39 Other disorders of phosphorus metabolism; I50.43 Acute on chronic combined systolic (congestive) and diastolic (congestive) heart failure; E11.9 Type 2 diabetes mellitus without complications; I10 Essential (primary) hypertension; F17.210 Nicotine dependence, cigarettes, uncomplicated; R79.1 Abnormal coagulation profile; E87.6 Hypokalemia; G47.00 Insomnia, unspecified; K21.9 Gastro-esophageal reflux disease without esophagitis; F15.10 Other stimulant abuse, uncomplicated; Z91.14 Patient's other noncompliance with medication regimen; Z88.6 Allergy status to analgesic agent; Z79.899 Other long term (current) drug therapy; Z82.3 Family history of stroke
CPT/HCPCS: 36415; 36600; 71045; 71275; 74018; 80048; 80053; 80305; 81003; 82009; 82150; 82803; 82948; 83036; 83605; 83690; 83735; 83880; 84100; 84439; 84443; 84484; 85025; 85379; 85610; 85730; 87040; 87081; 87086; 87804; 93005; 93970; 94640; 96374; 96375; 97161-GP; 99285; G0482; J1200; J1644; J1940; J2001; J2060; J2920; J2930; J3480; J3490; J7030; J7620; J7626; Q0092; Q9967

== ENCOUNTER 2019-09-06 20:07 | Emergency (ER) | payer MEDICARE, MEDICAID ==
[~2019-09-06] VITALS: Ht 193 cm; Wt 88.5 kg
[~2019-09-06 20:07] MED LIST changes: +METH4TAB1 PO
[2019-09-06 20:16] VITALS: BP 139/80
--- NOTE | 2019-09-06 20:20 | NUR ---
PT WHEELCHAIR ASSISTED TO THE LOBBY.
--- NOTE | 2019-09-06 20:35 | NUR ---
PT WAS TAKEN TO BED 12 VIA WHEEL CHAIR
--- NOTE | 2019-09-06 21:11 | NUR ---
BIB SELF C/O PAINFUL URINATION + FREQUENCY X 3 DAYS AGO. PT RATES BURNING 10/10 WHEN URINATION AND PELVIC PAIN. REPORTS THAT SOB SUBSIDED. RESP EVEN AND UNLABORED. DENIES CHEST PAIN. LEFT HAND SWELLING PRESENT AFTER REMOVAL OF IV IN PREVIOUS HOSPITAL VISIT LAST WEEK. PMH: CHF, DM, HTN ALLERGIES: MOTRIN
--- NOTE | 2019-09-06 21:57 | NUR ---
Dr. Patel examining patient.
[2019-09-06] MEDS ORDERED: cefTRIAXone 1,000 MG in LIDOCAINE MPF 1% 2.1 ML IM ONE (22:00)
[2019-09-06] MEDS ORDERED: cefTRIAXone 1,000 MG VIAL ONE (22:04)
[2019-09-06] MEDS ORDERED: LIDOCAINE MPF 1% 5 ML ONE (22:04)
[2019-09-06 22:34] VITALS: BP 139/80
--- NOTE | 2019-09-06 22:35 | NUR ---
Patient discharged with v/s stable. Written and verbal after care instructions given and explained. Patient alert, oriented and verbalized understanding of instructions. Ambulatory with steady gait. All questions addressed prior to discharge. ID band removed. Patient advised to follow up with PMD. Rx of LEVAQUIN, PREDNISONE given. Patient educated on indication of medication including possible reaction and side effects. Opportunity to ask questions provided and answered.
== END 2019-09-06 22:35 | disposition home or self-care (01) ==
LOC: MED 20:07
DX: N39.0 Urinary tract infection, site not specified (principal); J18.9 Pneumonia, unspecified organism; I11.0 Hypertensive heart disease with heart failure; I50.9 Heart failure, unspecified; J44.9 Chronic obstructive pulmonary disease, unspecified; E11.9 Type 2 diabetes mellitus without complications; Z90.49 Acquired absence of other specified parts of digestive tract; Z98.890 Other specified postprocedural states; F17.210 Nicotine dependence, cigarettes, uncomplicated; Z79.899 Other long term (current) drug therapy; Z79.51 Long term (current) use of inhaled steroids; Z79.82 Long term (current) use of aspirin; Z88.6 Allergy status to analgesic agent
CPT/HCPCS: 71045; 81002; 96372; 99283; J0696; J2001; Q0092

== ENCOUNTER 2019-09-12 01:35 | Inpatient (IN) | payer MEDICAID, MEDICARE ==
[~2019-09-12] VITALS: Ht 193 cm; Wt 88.5 kg
[2019-09-12 01:54] VITALS: BP 135/78
--- NOTE | 2019-09-12 02:20 | NUR ---
68 Y/O M PRESENTS TO ED WITH C/O SOB AND COUGH X5 DAYS. PT REPORTS "FEELING DIZZY WHILE WALKING SHORT DISTANCES." RR EVEN AND LABORED. NO ASSESORY MUSCLE USE. +DRY PRODUCTIVE COUGH. LUNGS CLEAR THROUGHOUT. O2 SAT AT 100%. TACHYPNEA AT 28. PT ATTACHED TO MONITORING SYSTEM. BED IN LOWEST POSTION. WILL CONTINUE TO MONITOR.
[2019-09-12] MEDS ORDERED: ALBUTEROL SULFATE/IPRATROPIU 3 ML SOL IH ONE (02:45)
[2019-09-12] MEDS ORDERED: methylPREDNISolone SS 125 MG in WATER STERILE 2 ML IV ONE (02:45)
[2019-09-12] MEDS ORDERED: AZITHROMYCIN 500 MG in DEXTROSE 5% 250 ML IV ONE (02:45)
[2019-09-12] MEDS ORDERED: FUROSEMIDE 40 MG/4 ML VIAL IVP ONE (02:45)
[2019-09-12] MEDS ORDERED: methylPREDNISolone SS 125 MG/2 ML VIAL ONE (03:09)
[2019-09-12] MEDS ORDERED: WATER STERILE 10 ML MC ONE (03:09)
[2019-09-12] MEDS ORDERED: cefTRIAXone 1,000 MG VIAL ONE (03:09)
--- NOTE | 2019-09-12 04:00 | NUR ---
PT SEATED WITH HOB ELVEATED FOR LUNG EXPANSION. O2 SAT AT 98% RA. RR EVEN AND UNLABORED. WILL CONTINUE TO MONITOR.
--- NOTE | 2019-09-12 04:50 | NUR ---
MADE DR. REESE AWARE OF IV ACCESS DIFICULTY; MULTIPLE ATTEMPTS BY MULTIPLE NURSES. LASIX AND SOLUMEDROL ADMINISTERED. ROCEPHIN STARTED. EXHIBIT SPECIALIST ATTEMPTING TO DRAW BLOOD. DR. REESE MADE AWARE.
[2019-09-12] MEDS ORDERED: AZITHROMYCIN 500 MG INJ VIAL IV ONE (05:01)
--- NOTE | 2019-09-12 05:01 | NUR ---
LABS SUCCESSFULLY DRAWN BY LON BOSE
[2019-09-12 05:27] LABS: BASOPHILS % (AUTO) 0.2 % (0.0-2.0); CARBON DIOXIDE 27.1 mmol/L (21-32); CREATININE 1.2 mg/dL (0.7-1.3); HEMATOCRIT 41.8 % (36-52); HEMOGLOBIN 13.5 g/dL (12.0-18.0); LYMPHOCYTES # (AUTO) 1.5 K/uL (2.0-11.5); LYMPHOCYTES % (AUTO) 13.7 % (20.5-51.1); MEAN CORPUSCULAR HEMOGLOBIN 31 pg (27-31); MEAN CORPUSCULAR HGB CONC 32 g/dL (33-37); MEAN CORPUSCULAR VOLUME 94.9 fL (80-94); MONOCYTES # (AUTO) 0.8 K/uL (0.8-1.0); MONOCYTES % (AUTO) 7.4 % (1.7-9.3); NEUTROPHILS # (AUTO) 8.7 K/uL (1.8-7.7); NEUTROPHILS % (AUTO) 78.7 % (42.2-75.2); PLATELET COUNT (AUTO) 360 K/uL (140-450); POTASSIUM 4.1 mmol/L (3.5-5.1); RED BLOOD CELL COUNT(AUTO) 4.41 MIL/uL (4.20-6.10); RED CELL DISTRIBUTION WIDTH 16.4 % (11.6-13.7); WHITE BLOOD COUNT (AUTO) 11.1 K/uL (4.8-10.8)
--- NOTE | 2019-09-12 05:30 | NUR ---
PT REQUESTING FOOD, DR. REESE GAVE PERMISSION TO EAT AT THIS TIME. MEAL PROVIDED TO PT.
[2019-09-12 05:34] LABS: AMYLASE 77 U/L (25-115); LIPASE 50 U/L (73-393)
[2019-09-12] MEDS ORDERED: NACL 0.9% 1,000 ML IV SCH ×3 (05:37→11:35)
[2019-09-12 05:43] LABS: PROTHROMBIN TIME 12.3 secs (10.8-13.4)
--- NOTE | 2019-09-12 06:03 | NUR ---
PT C/O CONSTIPATION. ERMD NOTIFIED
--- NOTE | 2019-09-12 06:50 | NUR ---
PT SEATED UPRIGHT IN BED. O2 SAT 99% RA. RR AT 22. NO DISTRESS AT THIS TIME. WILL CONTINUE TO MONITOR.
--- NOTE | 2019-09-12 07:08 | NUR ---
REPORT TO LIBBY ESPARZA. ALL CARE TRANSFERRED.
--- NOTE | 2019-09-12 07:17 | NUR ---
PT SITTING UP IN [facility], ADMITS BREATHING A LITTLE EASIER BUT WITH SOME EFFORT STILL REQUIRED---UP TO RESTROOM AT [facility]. CONTINUES TO WAIT FOR AVAILABLE ADMISSION
[2019-09-12] MEDS ORDERED: MELA5TAB6 PO (07:19)
[2019-09-12] MEDS ORDERED: ROSU10TA1 PO (07:19)
[2019-09-12] MEDS ORDERED: ONDANSETRON 4 MG/2 ML VIAL IM/IVP PRN (08:05)
[2019-09-12] MEDS ORDERED: DOCUSATE SODIUM 100 MG GELCAP PO PRN (08:05)
[2019-09-12] MEDS ORDERED: MORPHINE SULFATE 2 MG/ML SYR IVP PRN (08:05)
[2019-09-12] MEDS ORDERED: HYDROcodone/APAP 5/325 MG 1 TAB TAB PO PRN (08:05)
[2019-09-12] MEDS ORDERED: ACETAMINOPHEN 325 MG TAB PO PRN (08:05)
[2019-09-12 08:25] VITALS: BP 108/82
--- NOTE | 2019-09-12 08:25 | NUR ---
RECEIVED PT FROM ER NURSE, ISAIAS, VIA GURBIPIN, PT AMBULATED TO THE BED AND TO THE BATHROOM, IV LINE ON THE LEFT HAND G. 24 ON SALINE LOCK, INITIAL V/S TAKEN AND BP IS 108/82, PULSE IS 107, TEMP. IS 97.8, O2 SATURATION US 96%, PT DENIES PAIN, INTERMITTENT COUGH NOTED BUT PT DENIES SOB, WILL CONTINUE TO BE MONITORED
--- NOTE | 2019-09-12 08:28 | NUR ---
Pt transferred to Tele via [facility] ROOM 115 REPORT GIVEN TO ROLANDO SOUZA
--- NOTE | 2019-09-12 08:30 | NUR ---
MRSA SWAB DONE TO PT AND SAMPLE WAS SENT TO LAB.
[2019-09-12] MEDS ORDERED: FUROSEMIDE 40 MG/4 ML VIAL IVP SCH (09:30)
[2019-09-12] MEDS ORDERED: ALBUTEROL SULFATE/IPRATROPIU 3 ML SOL IH PRN (10:15)
[2019-09-12] MEDS ORDERED: DEXTROSE 50% 50 ML SYR IVP PRN (10:25)
[2019-09-12] MEDS ORDERED: QUET25TA46 PO (10:36)
[2019-09-12] MEDS ORDERED: FAMO-90 PO (10:37)
--- NOTE | 2019-09-12 10:45 | NUR ---
PT WAS GIVEN LASIX IVP AND BP IS 135/77, PULSE IS 101, O2 SATURATION IS 93%, WILL MONITOR PT.
[2019-09-12 11:06] LABS: CHOL/HDL RATIO 4.4 (1-4.5); MAGNESIUM 1.7 mg/dL (1.8-2.4); PHOSPHORUS 3.6 mg/dL (2.5-4.9); THYROID STIMULATING HORMONE 1.13 uIU/mL (0.34-3.74)
[2019-09-12 12:00] VITALS: BP 131/82
[2019-09-12] MEDS: BLOOD GLUCOSE MONITORING 1 DEV DEV FS SCH ×3 (12:13→20:07)
[2019-09-12] MEDS: INSULIN LISPRO SLIDING SCALE 100 UNITS/ML VIAL SUBQ PRN ×3 (12:20→20:58)
[2019-09-12] MEDS ORDERED: NACL 0.9% 500 ML IV ONE (12:30)
--- NOTE | 2019-09-12 12:32 | NUR ---
PATIENT HAS BEEN SCREENED AND CATEGORIZED MODERATE NUTRITION RISK. PATIENT WILL BE SEEN WITHIN 3-5 DAYS OF ADMISSION. 09/15/2019 - 09/17/2019 [address]AMEY MBA, RD
[2019-09-12 16:00] VITALS: BP 124/89
[2019-09-12] MEDS: CARVEDILOL 3.125 MG TAB PO SCH (17:38)
[2019-09-12] MEDS: FUROSEMIDE 40 MG/4 ML VIAL IVP SCH (17:38)
[2019-09-12] MEDS: ALBUTEROL SULFATE/IPRATROPIU 3 ML SOL IH SCH (18:50)
--- NOTE | 2019-09-12 18:56 | NUR ---
RECEIVED PT ON ROOM AIR WITH SP02 OF 97% AND A COARSE BREATH SOUNDS. NO RESPIRATORY DISTRESS NOTED AT THIS TIME. HHN TX GIVEN ORDERED WITH NO ADVERSE REACTION. WILL CONTINUE TO MONITOR PT
[2019-09-12] MEDS ORDERED: MAGNESIUM OXIDE 400 MG TAB PO SCH (19:00)
[2019-09-12] MEDS ORDERED: DOCUSATE SODIUM 100 MG GELCAP PO SCH (19:40)
--- NOTE | 2019-09-12 19:40 | NUR ---
RECEIVED PATIENT IN STABLE CONDITION FROM AM SHIFT NURSE FOR CONTINUITY OF CARE. RESPIRATIONS EVEN, UNLABORED. SKIN WARM, DRY TO TOUCH. IV SITE 24G TO RIGHT HAND CLEAN/DRY/PATENT, INFUSING WELL. NO S/SX ACUTE DISTRESS NOTED. ISOLATION PRECAUTIONS OBSERVED BY STAFF. CALL LIGHT WITHIN REACH. WILL CONTINUE TO MONITOR.
[2019-09-12 20:00] VITALS: BP 137/86
[2019-09-12] MEDS: FAMOTIDINE 20 MG TAB PO SCH (20:07)
[2019-09-12] MEDS: QUEtiapine FUMARATE 25 MG TAB PO SCH (20:07)
--- NOTE | 2019-09-12 20:58 | NUR ---
BLOOD SUGAR WAS CHECKED RESULT 188. INSULIN COVERAGE HUMALOG 2 UNITS GIVEN SUBQ. PROVIDE WITH SNACKS. WILL CONTINUE TO MONITOR.
[2019-09-12] MEDS: BENZONATATE 100 MG CAPLF PO PRN (21:00)
--- NOTE | 2019-09-12 22:30 | NUR ---
MADE ROUNDS. PT REQUESTED FOR SOME SANDWICH AND JELLO. HE SAIS HE IS REALLY HUNGRY. PROVIDED AND TOLERATED WELL.
[2019-09-13] VITALS (7 sets, daily range): BP systolic 100–131; BP diastolic 57–87
--- NOTE | 2019-09-13 | NUR ---
MADE ROUNDS. PATIENT ASLEEP. NO S/SX ACUTE DISTRESS. CALL LIGHT WITHIN REACH. WILL CONTINUE TO MONITOR.
--- NOTE | 2019-09-13 02:10 | NUR ---
PATIENT ASLEEP IN BED. NO S/SX ACUTE DISTRESS. NO C/O PAIN. CONTINUES IN STABLE CONDITION. CALL LIGHT WITHIN REACH. WILL CONTINUE TO MONITOR.
--- NOTE | 2019-09-13 04:30 | NUR ---
MADE ROUNDS. PATIENT CONTINUES IN STABLE CONDITION. NO C/O PAIN. NO S/SX ACUTE DISTRESS. CALL LIGHT WITHIN REACH. WILL CONTINUE TO MONITOR.
[2019-09-13] MEDS: BLOOD GLUCOSE MONITORING 1 DEV DEV FS SCH ×4 (06:22→20:22)
[2019-09-13] MEDS: INSULIN LISPRO SLIDING SCALE 100 UNITS/ML VIAL SUBQ PRN (06:24)
--- NOTE | 2019-09-13 06:33 | NUR ---
BLOOD GLUCOSE AT 153 MG/DL. 2 UNITS OF HUMALOG COVERAGE GIVEN. PATIENT CONTINUES IN STABLE CONDITION. NO S/SX ACUTE DISTRESS. NO C/O PAIN. ALL NEEDS ATTENDED TO. CALL LIGHT WITHIN REACH. WILL CONTINUE TO MONITOR.
--- NOTE | 2019-09-13 07:17 | NUR ---
ENDORSED PATIENT TO AM SHIFT IN STABLE CONDITION FOR CONTINUITY OF CARE.
[2019-09-13] MEDS: ALBUTEROL SULFATE/IPRATROPIU 3 ML SOL IH SCH ×3 (07:23→20:36)
--- NOTE | 2019-09-13 07:23 | NUR ---
RECEIVED PT FROM BRASS FINISHER NURSE, ALIS AND JILL, PT IS AWAKE AND SEATED ON THE BED WITH SIDE RAILS UP AND CALL LIGHT WITHIN REACH, IV LINE ON THE LEFT HAND G. 24 ON SALINE LOCK, PT ON O2 2L NC, PT DENIES PAIN AND NO SIGN OF DISTRESS NOTED. WILL MONITOR PT.
[2019-09-13 07:32] LABS: BASOPHILS % (AUTO) 0.2 % (0.0-2.0); HEMATOCRIT 36.2 % (36-52); HEMOGLOBIN 11.6 g/dL (12.0-18.0); LYMPHOCYTES % (AUTO) 9.9 % (20.5-51.1); MEAN CORPUSCULAR HEMOGLOBIN 30 pg (27-31); MEAN CORPUSCULAR HGB CONC 32 g/dL (33-37); MEAN CORPUSCULAR VOLUME 93.6 fL (80-94); MONOCYTES # (AUTO) 0.7 K/uL (0.8-1.0); MONOCYTES % (AUTO) 7.2 % (1.7-9.3); NEUTROPHILS # (AUTO) 8.2 K/uL (1.8-7.7); NEUTROPHILS % (AUTO) 82.7 % (42.2-75.2); PLATELET COUNT (AUTO) 286 K/uL (140-450); RED BLOOD CELL COUNT(AUTO) 3.86 MIL/uL (4.20-6.10); RED CELL DISTRIBUTION WIDTH 15.8 % (11.6-13.7); WHITE BLOOD COUNT (AUTO) 9.9 K/uL (4.8-10.8)
[2019-09-13 07:46] LABS: ANION GAP 14.1 (8-16); CARBON DIOXIDE 27.5 mmol/L (21-32); POTASSIUM 3.6 mmol/L (3.5-5.1)
[2019-09-13 07:50] LABS: MAGNESIUM 1.9 mg/dL (1.8-2.4); PHOSPHORUS 3.1 mg/dL (2.5-4.9)
[2019-09-13] MEDS: FAMOTIDINE 20 MG TAB PO SCH ×2 (08:33→20:47)
[2019-09-13] MEDS: CARVEDILOL 3.125 MG TAB PO SCH ×2 (08:33→16:41)
[2019-09-13] MEDS: ASPIRIN 81 MG TAB.CHEW PO SCH (08:33)
--- NOTE | 2019-09-13 08:33 | NUR ---
PT'S IV LINE WAS INFILTRATED AND A NEW IV LINE WAS STARTED ON THE LEFT FA G. 22
[2019-09-13] MEDS: ATORVASTATIN 20 MG TAB PO SCH (08:34)
[2019-09-13] MEDS: FUROSEMIDE 40 MG/4 ML VIAL IVP SCH ×2 (08:35→16:42)
--- NOTE | 2019-09-13 08:35 | NUR ---
PT'S SCHEDULED AM MEDICATIONS WERE GIVEN, PARAMETERS CHECKED AND WILL MONITOR PT.
[2019-09-13] MEDS: BENZONATATE 100 MG CAPLF PO PRN (09:06)
[2019-09-13] MEDS: LISINOPRIL 10 MG TAB PO SCH (09:13)
--- NOTE | 2019-09-13 09:15 | NUR ---
REPEAT CXR WAS BEING ONE TO PT NOW.
--- NOTE | 2019-09-13 11:30 | NUR ---
PT'S BLOOD GLUCOSE WAS CHECKED AND RESULT IS 133 AND NO INSULIN COVERAGE NEEDED.
--- NOTE | 2019-09-13 14:19 | NUR ---
EDNORSED PT TO RN AM FRANKLIN MADISON FOR CONTINUITY OF CARE, PT IS STABLE AT THIS TIME.
--- NOTE | 2019-09-13 14:20 | NUR ---
RECEIVED BEDSIDE REPORT FROM JENNIFER SOUZA ALL SAFETY MEASURES ARE IN PLACE WILL CONTINUE TO MONITOR.
--- NOTE | 2019-09-13 15:31 | NUR ---
FREQUENT ROUNDING ON PT PT APPEARS STABLE AND IN NO APPARENT DISTRESS. ALL SAFETY MEASURES ARE IN PLACE WILL CONTINUE TO MONITOR.
--- NOTE | 2019-09-13 18:41 | NUR ---
FREQUENT ROUNDING ON PT PT AWAKE IN BED PT APPEARS STABLE AND IN NO APPARENT DISTRESS. PT AT BEDSIDE ALL SAFETY MEASURES ARE IN PLACE WILL CONTINUE TO MONITOR.
--- NOTE | 2019-09-13 19:10 | NUR ---
ENDORSED PT TO PM RN PT AWAKE IN BED PT APPEARS STABLE AND IN NO APPARENT DISTRESS. ALL SAFETY MEASURES ARE IN PLACE
--- NOTE | 2019-09-13 19:15 | NUR ---
RECEIVED PT IN STABLE CONDITION FROM AM NURSE. PT IS AWAKE,ALERT AND ORIENTED X4. ON TELE MONITOR. HL ON THE LT FAg22. CLEAR AND PATENT. PLAN OF CARE DISCUSSED AND VERBALIZED UNDERSTANDING. BED ON LOW POSITION.CALL LIGHT AND URINAL PLACED WITHIN REACH. ON CONTACT ISOLATION . PRECAUTIONS ENFORCED. WILL CONTINUE TO MONITOR.
--- NOTE | 2019-09-13 20:06 | NUR ---
PT TEMP 102.2 HR-126. COOLING MEASURES DONE THEN TYLENOL [address] G[address] PO [address] ZALDIVAR MADE AWARE WITH SOME ORDERS.
[2019-09-13 20:41] LABS: BASOPHILS % (AUTO) 0.1 % (0.0-2.0); EOSINOPHILS % (AUTO) 0.1 % (0.0-4.0); HEMATOCRIT 41.8 % (36-52); HEMOGLOBIN 13.5 g/dL (12.0-18.0); LYMPHOCYTES % (AUTO) 7.9 % (20.5-51.1); MEAN CORPUSCULAR HEMOGLOBIN 31 pg (27-31); MEAN CORPUSCULAR HGB CONC 32 g/dL (33-37); MEAN CORPUSCULAR VOLUME 94.4 fL (80-94); MONOCYTES % (AUTO) 7.8 % (1.7-9.3); NEUTROPHILS # (AUTO) 10.4 K/uL (1.8-7.7); NEUTROPHILS % (AUTO) 84.1 % (42.2-75.2); PLATELET COUNT (AUTO) 326 K/uL (140-450); RED BLOOD CELL COUNT(AUTO) 4.43 MIL/uL (4.20-6.10); RED CELL DISTRIBUTION WIDTH 16.4 % (11.6-13.7); WHITE BLOOD COUNT (AUTO) 12.4 K/uL (4.8-10.8)
[2019-09-13] MEDS ORDERED: PIPERACILLIN/TAZOBACTAM 3.375 GM VIAL IV ONE (20:45)
[2019-09-13] MEDS: PIPERACILLIN/TAZOBACTAM 3.375 GM in DEXTROSE 5% 50 ML IV SCH (20:46)
[2019-09-13] MEDS: guaiFENesin 600 MG TABER PO SCH (20:46)
[2019-09-13] MEDS: QUEtiapine FUMARATE 25 MG TAB PO SCH (20:47)
--- NOTE | 2019-09-13 20:50 | NUR ---
RECEIVED PATIENT ON ROOM AIR, PULSE OX SAT 96%. SCHEDULED BREATHING TREATMENT ADMINISTERED. TOLERATED TX WELL WITHOUT ADVERSE SIDE EFFECTS. PATIENT SPONTANEOUSLY EXPECTORATED SPUTUM; SPECIMEN COLLECTED AND SENT TO LAB. NO ACUTE RESPIRATORY DISTRESS NOTED AT THIS TIME. WILL CONTINUE TO MONITOR.
[2019-09-13] MEDS ORDERED: KETOROLAC 15 MG/ML VIAL IVP SCH (21:00)
--- NOTE | 2019-09-13 21:22 | NUR ---
DR. ZALDIVAR MADE AWARE ABOUT LACTIC ACID 4.0 .WILL SEE PT.
--- NOTE | 2019-09-14 | NUR ---
LATEST TEMP 99.6 PT ON O22L/NC THIS TIME. STILL WITH OCCASIONAL PRODUCTIVE COUGH.
--- NOTE | 2019-09-14 02:00 | NUR ---
MADE ROUNDS. PT ASLEEP. NO S/S OF MANY DISCOMFORT NOTED. WILL CONTINUE TO MONITOR.
[2019-09-14 04:00] VITALS: BP 115/66
--- NOTE | 2019-09-14 04:00 | NUR ---
PT AFEBRILE. 99.6 THIS AM. NO C/O ANY PAIN NOR SOB NOTED. URINE SPECIMEN /SPUTUM COLLECTED AND SEND TO LAB FOR ANALYSIS.
[2019-09-14 04:12] LABS: APPEARANCE,URINE CLEAR (CLEAR); BILIRUBIN,URINE NEGATIVE (NEGATIVE); BLOOD, URINE NEGATIVE (NEGATIVE); COLOR,URINE YELLOW (YELLOW); LEUKOCYTE ESTERASE ,URINE 2+ (NEGATIVE); NITRITE, URINE NEGATIVE (NEGATIVE); UGLUCOSE NEGATIVE (NEGATIVE)
[2019-09-14] MEDS ORDERED: PIPERACILLIN/TAZOBACTAM 3.375 GM VIAL IV ONE (04:19)
[2019-09-14 04:23] LABS: BARBITURATE, URINE NEG. ng/ml (NEG <=200); BENZODIAZEPINE, URINE NEG. ng/mL (NEG <=200); CANNABINOID, URINE NEG. ng/mL (NEG <=50); COCAINE, URINE NEG. ng/mL (NEG <=300); OPIATE, URINE NEG. ng/mL (NEG <=2000); PHENCYCLIDINE SCREEN,URINE NEG. ng/mL (NEG <=25)
[2019-09-14] MEDS: PIPERACILLIN/TAZOBACTAM 3.375 GM in DEXTROSE 5% 50 ML IV SCH ×3 (04:30→20:38)
[2019-09-14 04:39] LABS: RBC,URINE 0-5 /HPF (0-5); WBC,URINE 0-5 /HPF (0-5)
--- NOTE | 2019-09-14 06:00 | NUR ---
PT GOT UP TO BATHROOM. NO C/O ANY DISCOMFORT NOTED. BS THIS AM 85.
[2019-09-14] MEDS: BLOOD GLUCOSE MONITORING 1 DEV DEV FS SCH ×4 (06:06→20:32)
[2019-09-14] MEDS: ALBUTEROL SULFATE/IPRATROPIU 3 ML SOL IH SCH ×3 (06:48→19:10)
[2019-09-14 07:08] LABS: BASOPHILS % (AUTO) 0.1 % (0.0-2.0); HEMATOCRIT 38.7 % (36-52); HEMOGLOBIN 12.4 g/dL (12.0-18.0); LYMPHOCYTES % (AUTO) 11.1 % (20.5-51.1); MEAN CORPUSCULAR HEMOGLOBIN 30 pg (27-31); MEAN CORPUSCULAR HGB CONC 32 g/dL (33-37); MEAN CORPUSCULAR VOLUME 94.8 fL (80-94); MONOCYTES # (AUTO) 0.6 K/uL (0.8-1.0); MONOCYTES % (AUTO) 6.3 % (1.7-9.3); NEUTROPHILS # (AUTO) 7.7 K/uL (1.8-7.7); NEUTROPHILS % (AUTO) 82.5 % (42.2-75.2); PLATELET COUNT (AUTO) 273 K/uL (140-450); RED BLOOD CELL COUNT(AUTO) 4.09 MIL/uL (4.20-6.10); RED CELL DISTRIBUTION WIDTH 16.4 % (11.6-13.7); WHITE BLOOD COUNT (AUTO) 9.3 K/uL (4.8-10.8)
[2019-09-14 07:09] LABS: CARBON DIOXIDE 34.3 mmol/L (21-32); CREATININE 1.4 mg/dL (0.7-1.3); POTASSIUM 3.3 mmol/L (3.5-5.1)
--- NOTE | 2019-09-14 07:10 | NUR ---
ENDORSED PT IN STABLE CONDITION TO AM NURSE.
[2019-09-14 07:12] LABS: MAGNESIUM 2.1 mg/dL (1.8-2.4); PHOSPHORUS 3.2 mg/dL (2.5-4.9)
--- NOTE | 2019-09-14 07:15 | NUR ---
RECEIVED BEDSIDE REPORT FROM PM RN PT AWAKE IN BED PT APPEARS STABLE AND IN NO APPARENT DISTRESS. ALL SAFETY MEASURES ARE IN PLACE. WILL CONTINUE TO MONITOR.
[2019-09-14 08:05] VITALS: BP 131/94
[2019-09-14] MEDS: CARVEDILOL 3.125 MG TAB PO SCH ×2 (08:42→16:07)
[2019-09-14] MEDS: ASPIRIN 81 MG TAB.CHEW PO SCH (08:42)
[2019-09-14] MEDS: LISINOPRIL 10 MG TAB PO SCH (08:42)
[2019-09-14] MEDS: guaiFENesin 600 MG TABER PO SCH ×2 (08:42→20:38)
[2019-09-14] MEDS: FAMOTIDINE 20 MG TAB PO SCH ×2 (08:43→20:38)
[2019-09-14] MEDS: ATORVASTATIN 20 MG TAB PO SCH (08:43)
[2019-09-14] MEDS: FUROSEMIDE 40 MG/4 ML VIAL IVP SCH (08:43)
[2019-09-14] MEDS ORDERED: ALBUTEROL SULFATE/IPRATROPIU 3 ML SOL IH PRN (08:50)
--- NOTE | 2019-09-14 09:13 | NUR ---
FREQUENT ROUNDING ON PT PT APPEARS STABLE AND IN NO APPARENT DISTRESS. ALL SAFETY MEASURES ARE IN PLACE WILL CONTINUE TO MONITOR
--- NOTE | 2019-09-14 11:46 | NUR ---
FREQUENT ROUNDING ON PT PT APPEARS STABLE AND IN NO APPARENT DISTRESS. ALL SAFETY MEASURES ARE IN PLACE WILL CONTINUE TO MONITOR.
[2019-09-14] MEDS ORDERED: ALBUTEROL SULFATE/IPRATROPIU 3 ML SOL IH SCH (12:00)
[2019-09-14 12:46] VITALS: BP 135/64
[2019-09-14] MEDS: CHLORHEXADINE GLUC 2% CLOTH TP SCH (14:00)
--- NOTE | 2019-09-14 15:34 | NUR ---
FREQUENT ROUNDING ON PT PT APPEARS STABLE AND IN NO APPARENT DISTRESS. ALL SAFETY MEASURES ARE IN PLACE
--- NOTE | 2019-09-14 15:46 | NUR ---
FREQUENT ROUNDING ON PT PT APPEARS STABLE AND IN NO APPARENT DISTRESS ALL SAFETY MEASURES ARE IN PLACE
[2019-09-14 16:05] VITALS: BP 112/82
[2019-09-14] MEDS: MUPIROCIN CA NASAL 2% 1GM TUBE NS SCH (16:06)
--- NOTE | 2019-09-14 17:22 | NUR ---
ELVIS assessment/discharge plan High Risk DC Screen [place]: Oni Bobo Relationship: brother Pre-Admission Living Arrangements: Other Other: homeless Tentative Discharge Plan Summary: Patient is a 68 year old male admitted for congestive heart failure. I met with patient at bedside. Patient was uncooperative, he provided me with limited information. He has been homeless for more than 4 years and does not want assistance with room and board placement. He stated he prefers to find his own place. He receives about $900 from [employer]. He denied alcohol/substance abuse. He does not know name of pcp. I provided him with education on [employer] [place] www.Connect[employer].org for community resources. He refused education on Advance Directive. He refused to provide me with additional information. Defect Repairer Glassware and/or Motorcycle Service Technician will follow up as needed. Signature: ELVIS Boykin Date: Sep 14, 2019
--- NOTE | 2019-09-14 19:24 | NUR ---
endorsed pt to pm rn pt awake in bed pt appears stable and in no apparent distress. all safety measures are in place
--- NOTE | 2019-09-14 19:25 | NUR ---
RECEIVED BEDSIDE REPORT FROM PM RN PT AWAKE IN BED PT A, A, O X 3, AMBULATORY STANDBY ASSIST. AFEBRILE AT THIS TIME, TAKEN ORALLY. NOT IN RESPIRATORY DISTRESS. PT APPEARS STABLE AND IN NO APPARENT DISTRESS. ALL SAFETY MEASURES ARE IN PLACE. WILL CONTINUE TO MONITOR
--- NOTE | 2019-09-14 19:31 | NUR ---
SPUTUM SAMPLE WAS COLLECTED
[2019-09-14 20:00] VITALS: BP 96/63
[2019-09-14] MEDS: QUEtiapine FUMARATE 25 MG TAB PO SCH (20:38)
--- NOTE | 2019-09-14 21:10 | NUR ---
ACCDG TO LAB ALREADY SPUTUM SAMPLE WAS COLLECTED AT 0400AM TODAY, AND THAT ANOTHER SPUTIUM WAS COLLECTED AT 1931. VINCENT SAID THAT THE OLD ONE (0400AM) IS STILL PROCESSING AND "NO" NOTE FROM TIM THAT IT IS NOT SAMPLE VIABLE, MEANING THE SAMPLE IS STILL OK.
[2019-09-15] VITALS: BP 103/54
[2019-09-15 04:00] VITALS: BP 105/50
[2019-09-15] MEDS: PIPERACILLIN/TAZOBACTAM 3.375 GM in DEXTROSE 5% 50 ML IV SCH ×3 (05:02→21:48)
[2019-09-15] MEDS: BLOOD GLUCOSE MONITORING 1 DEV DEV FS SCH ×4 (05:43→21:50)
--- NOTE | 2019-09-15 07:32 | NUR ---
RECEIVED BEDSIDE REPORT FROM PM RN PT AWAKE IN BED WITH NASAL CANULA IN PLACE 2L 02. IVF INFUSING ALL SAFETY MEASURES ARE IN PLACE WILL CONTINUE TO MONITOR
[2019-09-15] MEDS: ALBUTEROL SULFATE/IPRATROPIU 3 ML SOL IH SCH ×3 (07:33→19:29)
[2019-09-15 07:40] LABS: ANION GAP 12.4 (8-16); CARBON DIOXIDE 29.4 mmol/L (21-32); CREATININE 1.1 mg/dL (0.7-1.3)
[2019-09-15 08:24] LABS: BASOPHILS % (AUTO) 0.2 % (0.0-2.0); HEMATOCRIT 35.4 % (36-52); HEMOGLOBIN 11.7 g/dL (12.0-18.0); LYMPHOCYTES # (AUTO) 1.3 K/uL (2.0-11.5); LYMPHOCYTES % (AUTO) 16.6 % (20.5-51.1); MEAN CORPUSCULAR HEMOGLOBIN 31 pg (27-31); MEAN CORPUSCULAR HGB CONC 33 g/dL (33-37); MEAN CORPUSCULAR VOLUME 93.3 fL (80-94); MONOCYTES # (AUTO) 0.4 K/uL (0.8-1.0); MONOCYTES % (AUTO) 4.8 % (1.7-9.3); NEUTROPHILS % (AUTO) 78.4 % (42.2-75.2); PLATELET COUNT (AUTO) 234 K/uL (140-450); RED BLOOD CELL COUNT(AUTO) 3.79 MIL/uL (4.20-6.10); WHITE BLOOD COUNT (AUTO) 7.7 K/uL (4.8-10.8)
[2019-09-15 08:30] VITALS: BP 116/63
[2019-09-15 08:35] LABS: POTASSIUM 2.8 mmol/L (3.5-5.1)
--- NOTE | 2019-09-15 09:16 | NUR ---
FREQUENT ROUNDING ON PT PT APPEARS STABLE AND IN NO APPARENT DISTRESS ALL SAFETY MEASURES ARE IN PLACE WILL CONTINUE TO MONITOR.
[2019-09-15] MEDS: CARVEDILOL 3.125 MG TAB PO SCH ×2 (09:28→16:59)
[2019-09-15] MEDS: ASPIRIN 81 MG TAB.CHEW PO SCH (09:28)
[2019-09-15] MEDS: FAMOTIDINE 20 MG TAB PO SCH ×2 (09:28→21:49)
[2019-09-15] MEDS: LISINOPRIL 10 MG TAB PO SCH (09:28)
[2019-09-15] MEDS: guaiFENesin 600 MG TABER PO SCH ×2 (09:29→21:49)
[2019-09-15] MEDS: ATORVASTATIN 20 MG TAB PO SCH (09:29)
[2019-09-15] MEDS ORDERED: POTASSIUM CHLORIDE 10 MEQ TABER PO SCH (09:30)
[2019-09-15] MEDS ORDERED: POTASSIUM CHLORIDE 40 MEQ, LIDOCAINE 1% 25 MG in NACL 0.9% 250 ML IV SCH (09:45)
--- NOTE | 2019-09-15 11:26 | NUR ---
FINGER STICK GLUCOSE 71 NO COVERAGE NEEDED. ADMINISTERED APPLE JUICE TO PATIENT WILL CONTINUE TO MONITOR.
[2019-09-15 12:23] VITALS: BP 103/73
[2019-09-15] MEDS: MUPIROCIN CA NASAL 2% 1GM TUBE NS SCH (13:25)
[2019-09-15] MEDS: CHLORHEXADINE GLUC 2% CLOTH TP SCH (13:26)
--- NOTE | 2019-09-15 13:46 | NUR ---
FREQUENT ROUNDING ON PT PT APPEARS STABLE AND IN NO APPARENT DISTRESS, ALL SAFETY MEASURES ARE IN PLACE. WILL CONTINUE TO MONITOR.
--- NOTE | 2019-09-15 15:43 | NUR ---
FREQUENT ROUNDING ON PT PT APPEARS STABLE AND IN NO APPARENT DISTRESS. ALL SAFETY MEASURES ARE IN PLACE.
--- NOTE | 2019-09-15 16:11 | NUR ---
* ST NOTE * Pt seen at bedside. Pt alert, cooperative and engaged throughout session, reporting no c/o pain at this time. Bedside dysphagia and oral mechanism exams completed. See evaluation report for further details. Pt tolerating 4/4 alternating PO trials of regular solid saltine crackers as well as 5/5 alternating PO trials of thin liquid apple juice via a straw, all w/o s/s of aspiration. Pt presenting with occasional residue in oral cavity after PO intake of regular solids w/thin liquids. Pt education also completed re: aspiration precautions and safe swallow compensatory strategies pt could utilize during PO intake to aid w/swallow function 2/2 to pt's observed impulsivity w/self-feeding, w/pt verbalizing understanding and agreement w/clinician's recommendations. It is thus recommended pt's PO diet consistency be modified to mechanical soft textures w/thin liquids for all meals w/strict aspiration precautions in place. No further ST follow up recommended at this time. Pt and caregiver/Nsg Ivet education completed re: results of evaluation; benefits of abiding by aspiration precautions and recommended PO diet consistency; and prognosis for improvement; w/pt and caregiver/Nsg Ivet verbalizing understanding and agreement w/clinician's recommendations. Recommend: - PO DIET CONSISTENCY OF MECHANICAL SOFT TEXTURES W/THIN LIQUIDS for all meals - WHOLE PILL MEDICATION ADMINISTRATION - MAINTAIN STRICT ASPIRATION PRECAUTIONS DURING PT'S PO INTAKE 2/2 TO PT'S IMPULSIVITY - Pt can self-feed after setup of tray - CUE/REMIND PT TO SIT UP AT 90 DEGREE ANGLE DURING PO INTAKE; EAT/DRINK SLOWLY; ALTERNATE BTWN SOLIDS & LIQUIDS; AND TAKE SMALL BITES/SIPS - FNS/DIETARY: Pt requesting cereal such as raisin bran, cheerios or wheat flakes as a snack or with breakfast daily if available please No further ST follow up recommended at this time. NOMS Level 3 Time In/Out 15:40 - 16:10
[2019-09-15 16:15] VITALS: BP 98/72
--- NOTE | 2019-09-15 16:54 | NUR ---
FINGERSTICK GLUCOSE 152 2 UNITS INSULIN ADMINISTERED TO RIGHT UPPER ARM. PT IN NO APPARENT DISTRESS. PO MEDICATION ADMINISTERED. WILL CONTINUE TO MONITOR.
[2019-09-15] MEDS: INSULIN LISPRO SLIDING SCALE 100 UNITS/ML VIAL SUBQ PRN (17:01)
[2019-09-15 18:03] LABS: ANION GAP 11.2 (8-16); CARBON DIOXIDE 27.8 mmol/L (21-32); CREATININE 1.1 mg/dL (0.7-1.3)
--- NOTE | 2019-09-15 19:00 | NUR ---
RECEIVED BEDSIDE REPORT FROM PM RNGRICELDA. PT AWAKE IN BED PT A, A, O X 3, AMBULATORY STANDBY ASSIST. NOT IN RESPIRATORY DISTRESS. PT APPEARS STABLE AND IN NO APPARENT DISTRESS.WITH IVF LEFT FA G 24, PATENT AND INTACT,.ON THE ALL SAFETY MEASURES ARE IN PLACE. WILL CONTINUE TO MONITOR
[2019-09-15 20:00] VITALS: BP 112/74
[2019-09-15] MEDS: QUEtiapine FUMARATE 25 MG TAB PO SCH (21:49)
--- NOTE | 2019-09-15 22:00 | NUR ---
PT ABLE TO GO TO BATHROOM,AMBULATORY W/ STANDBY ASSIST. NOT IN DISTRESS. WILL CONTINUE TO MONITOR
[2019-09-16] VITALS: BP 113/75
--- NOTE | 2019-09-16 00:10 | NUR ---
PT READY TO LEEP, PLACED IN BED COMFORTABLY, NO COMPLAINTS AT THIS TIME
--- NOTE | 2019-09-16 02:00 | NUR ---
PT SLEEPING, NO RESPIRATORY DISTRESS NOT IN PAIN; WILL CONTINUE TO MONITOE
[2019-09-16 04:00] VITALS: BP 108/79
--- NOTE | 2019-09-16 04:20 | NUR ---
PT AWAKENED TIN VITAL SIGNS; WNL; WILL CONTINUE TO MONITOR
[2019-09-16] MEDS: PIPERACILLIN/TAZOBACTAM 3.375 GM in DEXTROSE 5% 50 ML IV SCH (05:15)
[2019-09-16] MEDS: ALBUTEROL SULFATE/IPRATROPIU 3 ML SOL IH SCH ×2 (06:35→13:00)
[2019-09-16] MEDS: BLOOD GLUCOSE MONITORING 1 DEV DEV FS SCH ×2 (06:42→11:30)
[2019-09-16 07:17] LABS: BASOPHILS % (AUTO) 0.3 % (0.0-2.0); EOSINOPHILS % (AUTO) 0.3 % (0.0-4.0); HEMATOCRIT 38.7 % (36-52); HEMOGLOBIN 12.5 g/dL (12.0-18.0); LYMPHOCYTES # (AUTO) 1.7 K/uL (2.0-11.5); LYMPHOCYTES % (AUTO) 22.1 % (20.5-51.1); MEAN CORPUSCULAR HEMOGLOBIN 30 pg (27-31); MEAN CORPUSCULAR HGB CONC 32 g/dL (33-37); MEAN CORPUSCULAR VOLUME 94.2 fL (80-94); MONOCYTES # (AUTO) 0.6 K/uL (0.8-1.0); MONOCYTES % (AUTO) 7.9 % (1.7-9.3); NEUTROPHILS # (AUTO) 5.5 K/uL (1.8-7.7); NEUTROPHILS % (AUTO) 69.4 % (42.2-75.2); PLATELET COUNT (AUTO) 257 K/uL (140-450); RED BLOOD CELL COUNT(AUTO) 4.11 MIL/uL (4.20-6.10); RED CELL DISTRIBUTION WIDTH 16.1 % (11.6-13.7); WHITE BLOOD COUNT (AUTO) 7.9 K/uL (4.8-10.8)
--- NOTE | 2019-09-16 07:20 | NUR ---
PT AWAKE, ALERT ORIENTED X 4, PT IN STABLE CONDITION. WILL ENDORSE TO NEXT SHIFT
--- NOTE | 2019-09-16 07:30 | NUR ---
RECEIVED PT ON BED AAOX4. NO SOB NOTED. NO C/O PAIN AT THIS TIME. IV TO LEFT HAND PATENT AND INTACT. CHEST, DIMINISHED AIR ENTRY TO THE BASES. ABDOMEN SOFT, BOWEL SOUNDS. INSTRUCTED PT TO CALL FOR ASSISTANCE, CALL LIGHT WITHIN REACH, PT VERBALIZED UNDERSTANDING.
[2019-09-16 07:41] LABS: MAGNESIUM 2.1 mg/dL (1.8-2.4)
[2019-09-16 07:43] LABS: ANION GAP 13.4 (8-16); CARBON DIOXIDE 27.5 mmol/L (21-32); CREATININE 1.1 mg/dL (0.7-1.3); POTASSIUM 3.9 mmol/L (3.5-5.1)
[2019-09-16 08:00] VITALS: BP 92/50
[2019-09-16] MEDS: CARVEDILOL 3.125 MG TAB PO SCH (08:00)
[2019-09-16] MEDS ORDERED: LEVO750T2 PO ×2 (08:47→15:11)
[2019-09-16] MEDS: LISINOPRIL 10 MG TAB PO SCH (09:00)
[2019-09-16] MEDS: guaiFENesin 600 MG TABER PO SCH (09:00)
[2019-09-16] MEDS: ASPIRIN 81 MG TAB.CHEW PO SCH (09:52)
[2019-09-16] MEDS: FAMOTIDINE 20 MG TAB PO SCH (09:52)
[2019-09-16] MEDS: ATORVASTATIN 20 MG TAB PO SCH (09:53)
[2019-09-16 10:00] VITALS: BP 120/78
--- NOTE | 2019-09-16 10:30 | NUR ---
ABLE TO GET HOLD OF PT'S DOMINGA TEL#[phone] REGARDING PT'S DISCHARGE HOME. DOMINGA STATED SHE WILL COME AND CLINICAL RESEARCH ANALYST PT AFTER LUNCH.
--- NOTE | 2019-09-16 12:30 | NUR ---
PT EATING LUNCH. NO SOB NOTED. NO C/O PAIN AT THIS TIME. PT AWAITING FOR HIS TO PICK HIM UP.
[2019-09-16] MEDS: INSULIN LISPRO SLIDING SCALE 100 UNITS/ML VIAL SUBQ PRN (12:45)
--- NOTE | 2019-09-16 14:00 | NUR ---
DISCHARGE INSTRUCTIONS GIVEN TO PT WHICH VERBALIZED FULL UNDERSTANDING OF THE INSTRUCTIONS GIVEN AND THE NEED TO FOLLOW WITH PCP ON THE GIVEN DATE. PT IS ALSO NOTIFIED THAT HIS LEVAQUIN PO PRESCRIPTION IS SENT TO HIS PREFERRED PHARMACY. ARM BAND AND IV REMOVED, CANNULA TIP INTACT.
--- NOTE | 2019-09-16 14:15 | NUR ---
PT IS WHEELED OUT TO THE PARKING LOT IN STABLE CONDITION. NO COMPLAINTS MADE. PT IS DISCHARGE HOME WITH .
[2019-09-16] MEDS ORDERED: ASCO1CAP75 PO (15:11)
[2019-09-16] MEDS ORDERED: LISI10TA11 PO (21:08)
== END 2019-09-16 14:15 | disposition home or self-care (01) | DRG 720 ==
LOC: MED 01:35 → MTU 08:02
PROVIDERS: ADMIT General Practice; ATTEND General Practice
DX: A41.9 Sepsis, unspecified organism (principal); J96.20 Acute and chronic respiratory failure, unspecified whether with hypoxia or hypercapnia; J69.0 Pneumonitis due to inhalation of food and vomit; I50.43 Acute on chronic combined systolic (congestive) and diastolic (congestive) heart failure; I27.20 Pulmonary hypertension, unspecified; R65.20 Severe sepsis without septic shock; J44.0 Chronic obstructive pulmonary disease with (acute) lower respiratory infection; E78.5 Hyperlipidemia, unspecified; E87.2 Acidosis; F15.10 Other stimulant abuse, uncomplicated; F17.200 Nicotine dependence, unspecified, uncomplicated; F20.9 Schizophrenia, unspecified; I11.0 Hypertensive heart disease with heart failure; I50.9 Heart failure, unspecified; J44.1 Chronic obstructive pulmonary disease with (acute) exacerbation; Z96.649 Presence of unspecified artificial hip joint; Z96.642 Presence of left artificial hip joint; E11.65 Type 2 diabetes mellitus with hyperglycemia; F15.19 Other stimulant abuse with unspecified stimulant-induced disorder; K21.9 Gastro-esophageal reflux disease without esophagitis; E87.6 Hypokalemia; D64.9 Anemia, unspecified; Z88.8 Allergy status to other drugs, medicaments and biological substances; Z82.3 Family history of stroke
CPT/HCPCS: 36415; 71045; 80048; 80053; 80305; 81001; 82150; 82948; 83605; 83690; 83735; 83880; 84100; 84436; 84443; 84484; 85025; 85610; 85730; 87040; 87070; 87081; 87086; 87205; 87804; 89220; 92610; 93005; 94640; 96365; 96366; 96367; 96375; 99285; J0456; J0696; J1815; J1885; J1940; J2001; J2270; J2543; J2930; J3480; J7030; J7060; J7620; Q0092

== ENCOUNTER 2021-12-26 15:15 | Emergency (ER) | payer MEDICARE, MEDICAID ==
[~2021-12-26] VITALS: Ht 193 cm; Wt 74.8 kg
[~2021-12-26 15:15] MED LIST changes: -ALBU0.0912 IH; +ASCO1CAP75 PO; +FAMO-90 PO; -FAMO20TA13 PO; -FLUT1DSK2 IH; +LEVO750T2 PO; -LISI-424 PO; +LISI10TA30 PO; +MELA5TAB6 PO; +ROSU10TA1 PO; -SPIR50TA PO
[2021-12-26 15:28] VITALS: BP 110/56
[2021-12-26] MEDS ORDERED: LIDOCAINE/EPI 2% 1:100000 20 ML VIAL INJ ONE (16:15)
--- NOTE | 2021-12-26 16:25 | NUR ---
pt amb to er bed 7
--- NOTE | 2021-12-26 16:29 | NUR ---
RADIOLOGY AT BEDSIDE
[2021-12-26] MEDS ORDERED: MORPHINE SULFATE 4 MG/ML SYR IM ONE (16:40)
--- NOTE | 2021-12-26 17:04 | NUR ---
IM MEDS GIVEN-NADR AT THIS TIME
--- NOTE | 2021-12-26 18:32 | NUR ---
STUART LALA AT [facility] EVALUATING PATIENT
[2021-12-26] MEDS ORDERED: LIDOCAINE MPF 1% 10 ML ONE (18:44)
[2021-12-26] MEDS ORDERED: LIDOCAINE MPF 1% 10 MG/ML VIAL INJ ONE ×2 (18:45)
[2021-12-26] MEDS ORDERED: SULF-59 PO (19:15)
--- NOTE | 2021-12-26 19:20 | NUR ---
REPORT GIVEN TO HIEN ARDON FOR TRANSFER OF CARE.
[2021-12-26 19:30] VITALS: BP 110/56
--- NOTE | 2021-12-26 19:30 | NUR ---
Patient discharged with v/s stable. Written and verbal after care instructions given and explained. Patient alert, oriented and verbalized understanding of instructions. Ambulatory with steady gait. All questions addressed prior to discharge. ID band removed. Patient advised to follow up with PMD. Rx of SULFAMETHOXAZOLE/TRIMETHOPRIM given. Patient educated on indication of medication including possible reaction and side effects. Opportunity to ask questions provided and answered.
--- NOTE | 2021-12-26 19:31 | NUR ---
The patient's care was reviewed and supervised by Kesha Pelayo RN.
== END 2021-12-26 19:30 | disposition home or self-care (01) ==
LOC: MED 15:15
DX: L03.031 Cellulitis of right toe (principal); L60.0 Ingrowing nail; I11.0 Hypertensive heart disease with heart failure; I50.9 Heart failure, unspecified; J44.9 Chronic obstructive pulmonary disease, unspecified; E11.9 Type 2 diabetes mellitus without complications; Z79.2 Long term (current) use of antibiotics; Z79.899 Other long term (current) drug therapy; Z79.82 Long term (current) use of aspirin; Z88.6 Allergy status to analgesic agent
CPT/HCPCS: 10060; 73660; 96372; 99283; J2001; J2270; Q0092

== ENCOUNTER 2021-12-30 13:12 | Emergency (ER) | payer MEDICARE, MEDICAID ==
[~2021-12-30] VITALS: Ht 193 cm; Wt 73.9 kg
[~2021-12-30 13:12] MED LIST changes: +SULF-59 PO
[2021-12-30 13:30] VITALS: BP 107/68
--- NOTE | 2021-12-30 13:34 | NUR ---
Pt to wait in lobby
--- NOTE | 2021-12-30 19:31 | NUR ---
pt taken to bed 09 via w/c.
--- NOTE | 2021-12-30 19:33 | NUR ---
pt provided with urinal.
[2021-12-30 20:40] VITALS: BP 102/69
--- NOTE | 2021-12-30 20:40 | NUR ---
Patient discharged with v/s stable. Written and verbal after care instructions given and explained. Patient verbalized understanding. W/C with to car. All questions addressed prior to discharge. Advised to follow up with PMD.
== END 2021-12-30 20:40 | disposition home or self-care (01) ==
LOC: MED 13:13
DX: L60.0 Ingrowing nail (principal); I11.0 Hypertensive heart disease with heart failure; I50.9 Heart failure, unspecified; J44.9 Chronic obstructive pulmonary disease, unspecified; E11.9 Type 2 diabetes mellitus without complications; Z79.82 Long term (current) use of aspirin; Z79.899 Other long term (current) drug therapy; Z88.6 Allergy status to analgesic agent
CPT/HCPCS: 99281

== ENCOUNTER 2022-01-06 16:08 | Emergency (ER) | payer MEDICARE, MEDICAID ==
[~2022-01-06] VITALS: Ht 193 cm; Wt 81.6 kg
[2022-01-06 16:14] VITALS: BP 134/74
--- NOTE | 2022-01-06 16:15 | NUR ---
PT AMBULATED TO ER BED 11 WITH A STEADY GAIT.
--- NOTE | 2022-01-06 16:23 | NUR ---
71 Y/O MALE C/O RIGHT BIG TOE PAIN 06/04 DESCRIBES ACHING AND THROBBING S/P INGROWN TOENAIL. NO ACTIVE BLEEDING NOTED, RIGHT BIG TOE NAIL CUT OFF PARTIALLY PT GRIMCING. PT SEEN HERE 12/30/21 SAME S/S. BLOOD SUGAR 102 AT THIS TIME. PMH: DM, CHF, COPD, HTN ALLERGIES: IBUPROFEN
[2022-01-06 18:15] VITALS: BP 146/78
--- NOTE | 2022-01-06 18:15 | NUR ---
PT RETING IN BED, C/O PAIN TO RIGHT BIG TOE 10/10. ERMD MADE AWARE.
[2022-01-06] MEDS ORDERED: HYDROcodone/APAP 5/325 MG 1 TAB TAB PO ONE (18:25)
[2022-01-06] MEDS ORDERED: ACET-8386 PO (18:41)
--- NOTE | 2022-01-06 19:00 | NUR ---
Note petra in [facility] - 01/06/22 at 1918 by MED1 PT LEFT WITHOUT D/C PAPERWORK. AUGUSTA MADE AWARE.
--- NOTE | 2022-01-06 19:06 | NUR ---
PT LEFT WITHOUT D/C PAPERWORK. LORIND MADE AWARE.
== END 2022-01-06 19:06 | disposition home or self-care (01) ==
LOC: MED 16:08
DX: L60.0 Ingrowing nail (principal); I11.0 Hypertensive heart disease with heart failure; I50.9 Heart failure, unspecified; J44.9 Chronic obstructive pulmonary disease, unspecified; Z79.899 Other long term (current) drug therapy; Z79.82 Long term (current) use of aspirin; Z88.6 Allergy status to analgesic agent; Z98.890 Other specified postprocedural states
CPT/HCPCS: 99283